=== PATIENT | female | born 1945 | race Caucasian/White ===

== ENCOUNTER 2025-02-10 09:08 | Outpatient (AMB) | payer MEDICARE, OTHER, SELFPAY ==
--- OUTSIDE RECORDS SUMMARY | 2025-02-10 10:11 | XMS_ITS | Clinical Summary ---
Author Organization [facility] [address] [facility] Address [address] [place] [address] Phone Care Team Providers Care Decaler Name Role Phone Meliton Agudelo MD Primary Care Provider [phone] Allergies Active Allergy Reactions Criticality Noted Date Comments Azithromycin Nausea And Vomiting 04/20/2018 Erythromycin 08/26/2024 Levofloxacin 08/26/2024 Sulfamethoxazole-Trimethoprim 2024 Medications multivitamin-mi r-[id number]-vit K 45 mg iron- 800 mcg-120 mcg capsule Orally Active alpha tocopherol (VITAMIN E) 268 mg (400 unit) capsule Take 1 capsule (400 Units total) by mouth daily. Active pantoprazole (PROTONIX) 40 mg EC tablet Take 1 tablet (40 mg total) by mouth daily. Active Toprol XL 25 mg 24 hr tablet TAKE 1 TABLET BY MOUTH EACH EVENING. MAY TAKE EXTRA 1/2 PER DAY NEEDED FOR PALPITATIONS 5 Active dicyclomine (BENTYL) 10 mg capsule Take 1 capsule (10 mg total) by mouth 4 times daily as needed. Active turmeric 400 mg capsule Take by mouth. Activ e pantoprazole (PROTONIX) 40 mg EC tabletIndicatio ns:Gastroesopha geal reflux disease without esophagitis Take 1 tablet (40 mg total) by mouth 1 (one) time each day. Do not crush, chew, or split. 90 each 3 5 08/27/19 26 Active dicyclomine (BENTYL) 10 mg capsuleIndicati ons:Irritable bowel syndrome without diarrhea Take 1 capsule (10 mg total) by mouth 4 (four) times a day. 360 each 3 5 08/27/19 26 Active hydrocortisone (ANUSOL-HC) 2.5 % rectal creamIndication s:Hemorrhoids, unspecified hemorrhoid type Insert into the rectum 2 (two) times a day for 10 days. 30 g 1 Active Active Problems Problem Noted Date Diagnosed Date SVT (supraventricular tachycardia) (CMS/[facility] V24) 08/26/2024 Irritable bowel syndrome without diarrhea 2024 Assessment & Plan (08/26/2024 8:47 AM EST): Orders: dicyclomine (BENTYL) 10 mg capsule; Take 1 capsule (10 mg total) by mouth 4 (four) times a day. Gastroesophageal reflux disease without esophagi tis 08/26/2024 Assessment & Plan (08/26/2024 8:47 AM EST): Orders: pantoprazole (PROTONIX) 40 mg EC tablet; Take 1 tablet (40 mg total) by mouth 1 (one) time each day. Do not crush, chew, or split. Gallbladder polyp 08/26/2024 Overview (08/26/2024): Overall Stable (7mm) on US 08/2023 - no further monitoring planned. Assessment & Plan (08/26/2024 8:47 AM EST): Surgical History Surgery Date Site/Laterality Comments COLONOSCOPY 04/23/2021 - 05/22/2021 5 yr due to fHx polyps ESOPHAGOGASTRODUODENOSCOPY 11/21/2012 - 12/20/2012 nl with nl small bowel and gastric biopsies OOPHORECTOMY APPENDECTOMY Family History Medical History Relation Name Comments Colon polyps Brother 50s Colon polyps Mother Colon polyps Sister 50s Relation Name Status Comments Brother Mother Sister Social History Tobacco Use Types Packs/Day Years Used Date Smoking Tobacco: Never Assessed Comments Unknown Sex and Gender Information Value Date Recorded Sex Assigned at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 Legal Sex Female 8:35 AM EST Gender Identity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 Sexual Orientation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 Obstetrics History Last Filed Vital Signs Vital Sign Reading Time Taken Comments Blood Pressure - - Pulse - - Temperature - - Respiratory Rate - - Oxygen Saturation - - Inhaled Oxygen Concentration - - Weight 53.1 kg (117 lb) 08/26/2024 8:00 AM EST Height 162.6 cm (5' 4 ) 08/26/2024 8:00 AM EST Body Mass Index 20.08 08/26/2024 8:00 AM EST Plan of Treatment Health Maintenance Due Date Last Done Comments Falls Risk Assessment 05/26/2022 Hepatitis C Screening 05/26/2022 Medicare Annual Wellness Visit 05/26/2022 Osteoporosis Screening (Bone Density Screening) 05/26/2022 Social Influencers of Health Screening 05/26/2022 RSV Immunization Adult Patients (1 - 1-dose 75+ series) 2022 DTaP,Tdap,and Td Vaccines (2 - Td or Tdap) 07/01/2023 07/01/2013 COVID-19 Vaccine ( season) 2024 03/24/2023, 04/15/2022, 10/30/2021, Additional history exists Depression Screening 06/23/2024 Influenza Vaccine (#1) 2025 , 04/23/2023, 03/29/2022, Additional history exists Cholesterol Screening (Lipid Panel) 10/31/2027 10/30/2022 Zoster Vaccines Completed 11/13/2018, 09/04/2018 Pneumococcal Vaccine: 50+ Years Completed 02/19/2021, 12/07/2019 Colorectal Cancer Screening: Colonoscopy Discontinued 05/03/2021 HIB Vaccines Aged Out No longer eligi ble based on patient's age to complete this topic HPV Vaccines Aged Out No longer eligi ble based on patient's age to complete this topic Hepatitis A Vaccines Aged Out No long er eligible based on patient's age to complete this topic Hepatitis B Vaccines Aged Out No long er eligible based on patient's age to complete this topic IPV Vaccines Aged Out No longer eligi ble based on patient's age to complete this topic MMR Vaccines Aged Out No longer eligi ble based on patient's age to complete this topic Meningococcal ACWY Vaccine Aged Out N o longer eligible based on patient's age to complete this topic Meningococcal B Vaccine Aged Out No l onger eligible based on patient's age to complete this topic RSV Immunization Patients Under 20 months Aged Out No longer eligible based on patient's age to complete this topic Varicella Vaccines Aged Out No longer eligible based on patient's age to complete this topic Procedures Procedure Name Priority Date/Time Associated Diagnosis Comments EXTERNAL COLONOSCOPY REPORT Routine 05/03/2021 9:44 AM EST from Last 3 Months or Most Recently Relevant to Health Maintenance Results * External Colonoscopy Report (05/03/2021 9:44 AM EST) Anatomical Region Laterality Modality Endoscopy us Historical Provider GI~PROCEDURE ORDERABLES F inal Result from Last 3 Months or Most Recently Relevant to Health Maintenance Insurance MEDICARE [facility] Care Teams Decaler Relationship Specialty Start Date End Date Meliton Agudelo MD [address] [place] [address], [address] [place] [address] PCP - General Internal Medicine 08/26/24
--- OUTSIDE RECORDS SUMMARY | 2025-02-10 10:11 | XMS_ITS | Patient Health Record ---
[facility] Address [address] [place] [address] Care Team Providers Care Mangle Roller Name Role Phone Magnus WATSON, Meliton Primary Care Provider Ra Curtis Unavailable [phone] Allergies Allergen (clinical drug ingredient) Drug/Non Drug Allergy documented on EMR Reaction Allergy Type Onset Date Status sulfamethoxazole / trimethoprim Bactrim Unknown Drug Allergy Active Biaxin Unknown Drug Allergy Active erythromycin Erythromycin Unknown Drug Allergy A ctive Levaquin Unknown Drug Allergy Active azithromycin Zithromax Z-Jean Unknown Drug Allergy Active Reason For Referral No Information Medications Medication SIG (Take, Route, Frequency, Duration) Notes Start Date End Date Status Pantoprazole Sodium 40 MG 1 tablet Orally Once a day; Duration: 30 day(s) Active PreserVision AREDS 2 - as directed Orally Active Dicyclomine HCl 10 MG 1 tablet Orally Fo ur times a day Active Multivitamin Spectavite Active Physical Therapy . . . 2-3x/week; Duration: 3-4 weeks 03/15/2019 Not-Taking Calcium 600 MG 1 tablet with meals Orally Twice a day; Duration: 30 day(s) Active Nystatin 265452 UNIT 1 tablet Orally every 8 hrs; Duration: 10 day(s) Not-Taking Night Splint AFO - L1930 as directed 03/15/2019 Not-Taking Vitamin E 400 UNIT 1 capsule Orally Once a day; Duration: 30 day(s) Active Augmentin 500-125 MG 1 tablet Orally every 8 hrs; Duration: 7 day(s) Not-Taking Toprol XL 25 MG 1 tablet Orally Once a day; Duration: 30 day(s) Active Immunizations Vaccine Route Administration Date Status Comme nts COVID-19 [employer] Vaccine Unknown 10/30/2021 Administered 1st 07/11/2020 2nd 08/01/2020 3rd 04/10/2021 Social History Tobacco Use: Social History Observation Description Date Details (start date - stop date) Former Smoker NA - NA Tobacco Use/Smoking Question Answer Notes Are you a: former smoker Additional Findings: Tobacco Non-User Current no n-smoker Alcohol Screen Question Answer Notes Did you have a drink contain ing alcohol in the past year? Yes How often did you have a dri nk containing alcohol in the past year? Monthly or less (1 point) Points 1 Interpretation Negative Tobacco use other than smoking: Question Answer Notes Are you an other tobacco user? No Problems Problem Type SNOMED Code ICD Code Onset Dates Problem Status W/U Status Risk Notes Problem Acquired hallux rigidus (0252358) Hallux rigidus, left foot (M20.22) Active confirmed Problem Hallux rigidus, right foot (M20.21) Active confirmed Plan Of Treatment Pending Test Test Name Order Date X ray : Foot, right 3V 03/15/2019 Insurance Providers Payer Name Payer Address Payer Phone Subscriber Number Group Number Insured Name Patient Relationship to Insured Coverage Start Date Coverage End Date Medicare National Govt Svcs Inc [address] [place] [address] [id number] Tamara Bernal Self - patient is the insured [facility] [address] [place] [address] [id number] Tamara Bernal Self - patient is the insured Medical (General) History Medical History History ICD Code Measles Mumps Supraventricular tachycardia Surgical History Surgery Date(Month/Year) appendectomy ovarian surgery- right removed eye surgery-Blocked tear duct right eye 02/08/2019 eye surgery- blocked tear duct-right eye 03/24/2019
--- OUTSIDE RECORDS SUMMARY | 2025-02-10 10:11 | XMS_ITS | Encounter Summary ---
Author Organization [facility] Address [address] [facility] [address] [place] [address] Phone Care Team Providers Care Stable Attendant Name Role Phone Meliton Agudelo MD Primary Care Provider [phone] Lamien Navarro MD Unavailable [phone] Iain Hicks MD Unavailable [phone] Meliton Agudelo MD Unavailable [phone] Larry Anderson MD Unavailable [phone] Encounter Details Date Type Department Care Team (Late st Contact Info) Description 03/19/2022 Procedure [facility], [facility] [address] [place] [address] Social History Tobacco Use Types Packs/Day Years Used Date Smoking Tobacco: Never Passive Smoke Exposure: Never Smokeless Tobacco: Never Alcohol Use Standard Drinks/Week Comments Not Currently 0 (1 standard drink = 0.6 oz pur e alcohol) occ Child or Family Care Answer Date Record ed Do you have problems with on e of the following making it difficult for you to work, study, or receive health care? No 11/05/2021 Education Answer Date Recorded Are you interested in help w ith more adult education (for example, completing high school, GED, job training, learning the Argentine language, technical skills, or developing parenting skills)? No 11/05/2021 Food Answer Date Recorded Within the past 6 months we worried whether our food would run out before we got money to buy more. Never True 11/05/2021 Within the past 6 months the food we bought just didn't last and we didn't have enough money to get more. Never True Residential Stability Answer Date Recor ded What is your housing situation today? I have etelvina sing 11/05/2021 How many times have you move d in the past 12 months? Zero (I did not move) 11/05/2021 Paying for Meds Answer Date Recorded Do you have trouble paying for medicines? No 11/05/2021 Paying Utility Bills Answer Date Record ed Do you have trouble paying your heating or elect ricity bill? No 11/05/2021 Transportation Answer Date Recorded Has the lack of transportati on kept you from medical appointments or from getting medications? No 11/05/2021 Unemployment Answer Date Recorded Are you currently unemployed or working on a part-time or temporary basis, and looking for work? 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 documented as of this encounter Plan of Treatment Upcoming Encounters Date Type Department Care Team (Late st Contact Info) Description 11/15/2025 8:30 AM EDT Office Visit [facility] [address] [place] [address] Meliton Agudelo MD [address] [place] [address], [address] [place] [address] documented as of this encounter Visit Diagnoses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documented in this encounter Additional Health Concerns Infection Onset Date Last Indicated Resolved Time COVID-19 05/05/2023 05/05/2023 05/26/2023 1:21 AM EST Assessment Noted Time PHQ-2 Depression Total Score: 0 11/06/19 9:20 AM EDT documented as of this encounter Care Teams Stable Attendant Relationship Specialty Start Date End Date Meliton Agudelo MD [address] [place] [address], [address] [place] [address] PCP - General Internal Medicine 11/05/21 Lamine Navarro MD [address] [place] [address] Gastroenterology 11/05/21 Iain Hicks MD [address] [place] [address], [address] [place], [place] [phone] Ophthalmology 07/01/22 Meliton Agudelo MD [address] [place] [address], [address] [place] [address] [email or web address] Insurance Assigned Provider 09/27/23 Larry Anderson MD [address] [place] [address] [address] [place] [address] Otolaryngology 11/10/23 documented as of this encounter Additional Source Comments The information contained in this document represents components of the legal health record. It is not the complete legal health record.[facility]
== END 2025-02-10 09:24 | disposition home or self-care (01) ==
LOC: HO.HMGAL 09:08
PROVIDERS: PCP Internal Medicine; Visit Provider Registered Nurse Emergency
DX: J30.89 Other allergic rhinitis (principal)
CPT/HCPCS: 95117; 95165

== ENCOUNTER 2025-02-16 14:04 | Outpatient (AMB) | payer MEDICARE, OTHER, SELFPAY ==
--- OUTSIDE RECORDS SUMMARY | 2025-02-16 15:00 | XMS_ITS | Encounter Summary ---
Author Organization [facility] Address [address] [facility] [address] [place] [address] Phone Care Team Providers Care Spring Crater Name Role Phone Meliton Agudelo MD Primary Care Provider [phone] Lamine Navarro MD Unavailable [phone] Iain Hicks MD Unavailable [phone] Meliton Agudelo MD Unavailable [phone] Larry Anderson MD Unavailable Encounter Details Date Type Department Care Team (Latest Contact Info) Description 04/09/2023 Transcribe Orders Virtual Department [address] [place], [place] [phone] Meliton Agudelo MD [address] [facility], [address] [place] [address] [email or web address] Encounter for screening mammogram for malignant neoplasm of breast (Primary Dx) Social History Tobacco Use Types Packs/Day Years [...] high school, GED, job training, learning the [place] language, technical skills, or developing parenting skills)? [...] basis, and looking for work? No 11/05/2021 Digital Access Answer Date Recorded No 11/18/2022 No 11/18/2022 Reliable internet access at home?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 11/18/2022 Device with a working camera?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 documented as of this encounter Plan of Treatment Upcoming Encounters Date Type Department Care Team (Late st Contact Info) Description 11/15/2025 8:30 AM EDT Office Visit [facility] [address] [place] [address] Meliton Agudelo MD [address] [facility], [address] [place] [address] documented as of this encounter Results * (ABNORMAL) BI MAMMOGRAM SCREENING WITH TOMOSYNTHESIS WITH CAD (BILATERAL) (07/07/2023 7:59 AM EST) Anatomical Region Laterality Modality Breast Left, Breast Right, Breast Bilateral Bila teral Mammography 07/15/2023 4:55 PM EST Impressions 07/15/2023 5:06 PM EST 1. Right breast discrete asymmetry posterior laterally is incompletely assessed. Recommend diagnostic mammography to include spot compression views CC and MLO projections with ultrasound to follow if indicated based upon diagnostic imaging findings. 2. Left breast: No evidence of malignancy. BI-RADS: BI-RADS CATEGORY: 0 - Incomplete. Need additional imaging evaluation. RIGHT RECOMMENDATION DUE DATE: At This Time Recommendation: Right Additional Imaging LEFT RECOMMENDATION DUE DATE: on schedule Recommendation: Left Mammography Screening Narrative 07/15/2023 5:06 PM EST History: Breast cancer screening STUDY: Bilateral screening mammography with tomosynthesis and CAD TECHNIQUE: Bilateral full-field digital screening mammography is obtained and read in conjunction with computer-aided detection. Tomosynthesis as well as 2-D C view imaging were obtained. COMPARISON: Comparison made with multiple prior, most recent 07/01/2022, and most remote 05/26/2017. FINDINGS: Right breast: Rounded oval 4-5 mm discrete asymmetry posterior lateral right breast CC projection, 6.5 cm from the nipple persists on tomography raising question of small mass. Clear corresponding abnormality difficult to define on right MLO projection. Approximate 2.8 mm discrete asymmetry identified on tomography within the posterior nipple line. No architectural distortion or suspicious microcalcification. Left breast: No suspicious mass, architectural distortion, concerning asymmetry or suspicious grouping of microcalcifications. DENSITY: There are scattered fibroglandular densities. Procedure Note Kaushal Burton MD - 07/15/2023 History: Breast cancer screening STUDY: Bilateral screening mammography with tomosynthesis and CAD TECHNIQUE: Bilateral full-field digital screening mammography is obtainedand read in conjunction with computer-aided detection. Tomosynthesis aswell as 2-D C view imaging were obtained. COMPARISON: Comparison made with multiple prior, most recent 07/01/2022, andmost remote 05/26/2017. FINDINGS: Right breast: Rounded oval 4-5 mm discrete asymmetry posterior lateralright breast CC projection, 6.5 cm from the nipple persists on tomographyraising question of small mass. Clear corresponding abnormality difficultto define on right MLO projection. Approximate 2.8 mm discrete asymmetryidentified on tomography within the posterior nipple line. Noarchitectural distortion or suspicious microcalcification. Left breast: No suspicious mass, architectural distortion, concerningasymmetry or suspicious grouping of microcalcifications. DENSITY: There are scattered fibroglandular densities. IMPRESSION: 1. Right breast discrete asymmetry posterior laterally is incompletelyassessed. Recommend diagnostic mammography to include spot compressionviews CC and MLO projections with ultrasound to follow if indicated basedupon diagnostic imaging findings. 2. Left breast: No evidence of malignancy. BI-RADS: BI-RADS CATEGORY: 0 - Incomplete. Need additional imagingevaluation. RIGHT RECOMMENDATION DUE DATE: At This Time Recommendation: Right Additional Imaging LEFT RECOMMENDATION DUE DATE: on schedule Recommendation: Left Mammography Screening us Meliton Agudelo MD IMG MG EXAMS Final Resu lt documented in this encounter Visit Diagnoses Diagnosis Encounter for screening mammogram for malignant neoplasm of breast- Primary Abnormal mammogram of right breast- Primary Encounter for screening mammogram for malignant neoplasm of breast documented in this encounter Additional Health Concerns Infection Onset Date Last Indicated Resolved Time COVID-19 05/05/2023 05/05/2023 05/26/2023 1:21 AM EST Assessment Noted Time PHQ-2 Depression Total Score: 0 11/05/19 23 9:02 AM EDT documented as of this encounter Care Teams Spring Crater Relationship Specialty Start Date End Date Meliton Agudelo MD [address] [place] [address], [address] [place] [address] PCP - General Internal Medicine 11/05/21 Lamine Navarro MD [address] [place] [address] Gastroenterology 11/05/21 Iain Hicks MD [address] [place] [address], [address] [place], [place] [id number] [email or web address] Ophthalmology 07/01/22 Meliton Agudelo MD [address] [place] [address], [address] [place] [address] [email or web address] Insurance Assigned Provider 09/27/23 Larry Anderson MD [address] [place] [address] [place] [address] Otolaryngology 11/10/23 documented as of this encounter Additional Source Comments The information contained in this document represents components of the legal health record. It is not the complete legal health record.[facility]
--- OUTSIDE RECORDS SUMMARY | 2025-02-16 15:00 | XMS_ITS | Patient Health Record ---
[facility] Address [address] [place] [address] Care Team Providers Care Sewing Machine Operator Name Role Phone Magnus WATSON, Meliton Primary Care Provider Ra Curtis Unavailable [phone] Allergies Allergen (clinical drug ingredient) Drug/Non Drug [...] a day; Duration: 30 day(s) Active Nystatin 829668 UNIT 1 tablet Orally every 8 hrs; [...] Route Administration Date Status Comme nts COVID-19 [employer] Vaccine Unknown 10/30/2021 Administered 1st 07/11/2020 [...] Status Risk Notes Problem Acquired hallux rigidus (9140975) Hallux rigidus, left foot (M20.22) Active confirmed Problem Hallux rigidus, right foot (M20.21) Active confirmed Plan Of Treatment Pending Test Test Name Order Date X ray : Foot, right 3V 03/15/2019 Insurance Providers Payer Name Payer Address Payer Phone Subscriber Number Group Number Insured Name Patient Relationship to Insured Coverage Start Date Coverage End Date Medicare National Govt Svcs Inc [address] [facility] [address] [id number] Tamara Bernal Self - patient is the insured [facility] ([facility]) [address] [place] [address] [id number] Tamara Bernal Self - patient is the insured Medical (General) History Medical History History ICD Code Measles Mumps Supraventricular tachycardia Surgical History Surgery Date(Month/Year) appendectomy ovarian surgery- right removed eye surgery-Blocked tear duct right eye 02/08/2019 eye surgery- blocked tear duct-right eye 03/24/2019
--- OUTSIDE RECORDS SUMMARY | 2025-02-16 15:00 | XMS_ITS | Encounter Summary ---
Author Organization [facility] Address [address] [facility] [address] [place] [address] Phone Care Team Providers Care Knot Tying Operator Name Role Phone Meliton Agudelo MD Primary Care Provider [phone] Lamine Navarro MD Unavailable [phone] Iain Hicks MD Unavailable [phone] Meliton Agudelo MD Unavailable Larry Anderson MD Unavailable [phone] Encounter Details Date Type Department Care Team (Late st Contact Info) Description 03/19/2022 Procedure Pass [facility], [facility] [address] [place] [address] Social History Tobacco Use Types Packs/Day Years [...] high school, GED, job training, learning the Malawian language, technical skills, or developing parenting skills)? 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 documented as of this encounter Plan of Treatment Upcoming Encounters Date Type Department Care Team (Late st Contact Info) Description 11/15/2025 8:30 AM EDT Office Visit [facility] [address] [place] [address] Meliton Agudelo MD [address] [place] [address], [address] [place] [address] documented as of this encounter Visit Diagnoses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documented in this encounter Additional Health Concerns Infection Onset Date Last Indicated Resolved Time COVID-19 05/05/2023 05/05/2023 05/26/2023 1:21 AM EST Assessment Noted Time PHQ-2 Depression Total Score: 0 11/06/19 9:20 AM EDT documented as of this encounter Care Teams Knot Tying Operator Relationship Specialty Start Date End Date Meliton Agudelo MD [address] [place] [address], [address] [place] [address] PCP - General Internal Medicine 11/05/21 Lamine Navarro MD [address] [place] [address] Gastroenterology 11/05/21 Iain Hicks MD [address] [place] [address], [address] [place], [place] [id number] Ophthalmology 07/01/22 Meliton Agudelo MD [address] [place] [address], [address] [place] [address] [email or web address] Insurance Assigned Provider 09/27/23 Larry Anderson MD [address] [place] [address] [address] [place] [address] Otolaryngology 11/10/23 documented as of this encounter Additional Source Comments The information contained in this document represents components of the legal health record. It is not the complete legal health record.[facility]
--- OUTSIDE RECORDS SUMMARY | 2025-02-16 15:00 | XMS_ITS | Encounter Summary ---
Author Organization [facility] Address [address] [facility] [address] [place] [address] Phone Care Team Providers Care Roof Plumber Name Role Phone Som Adkins MD Primary Care Provider Meliton Agudelo MD Primary Care Provider [phone] Lamine Navarro MD Unavailable [phone] Iain Hicks MD Unavailable [phone] Meliton Agudelo MD Unavailable [phone] Larry Anderson MD Unavailable Encounter Details Date Type Department Care Team (Latest Contact Info) Description 07/31/2017 Transcribe Orders [address] [address] Som Adkins MD [address] [facility] [address] [place] [address] [email or web address] Routine medical exam (Primary Dx); High cholesterol; Fatigue, unspecified type Social History Tobacco Use Types Packs/Day Years Used Date Smoking Tobacco: Never Assessed Comments No Sex and Gender Information Value Date Recorded Sex Assigned at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 Legal Sex Female 10:06 PM EDT Gender Identity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 Sexual Orientation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 documented as of this encounter Plan of Treatment Upcoming Encounters Date Type Department Care Team (Late st Contact Info) Description 11/15/2025 8:30 AM EDT Office Visit [facility] [address] [place] [address] Meliton Agudelo MD [address] [place] [address], [address] [place] [address] [email or web address] documented as of this encounter Results * CBC and differential (07/31/2017 7:56 AM EST) WBC 5.60 3.40 - 11.20 K/uL [facility] RBC 4.57 3.80 - 4.80 M/uL [facility] HGB 13.8 12.0 - 15.0 g/dL [facility] HCT 42.1 36.0 - 46.0 % [facility] PLT 293 130 - 400 K/uL [facility] MCV 92.1 79.0 - 98.0 fL [facility] MCH 30.2 27.0 - 34.8 pg [facility] MCHC 32.8 31.5 - 36.0 g/dL [facility] RDW 12.7 10.8 - 14.6 % [facility] MPV 10.6 9.4 - 12.4 fl [facility] NRBC 0.00 /100 WBCs [facility] ABSOLUTE NRBC 0.00 K/uL [facility] DIFF [employer] [facility] NEUTS 52.8 45.30 - 77.70 % [facility] LYMPHS 32.5 12.30 - 39.70 % [facility] MONOS 9.5 4.10 - 12.80 % [facility] EOS 3.9 0 - 7.2 % [facility] BASOS 1.1 0 - 2.80 % [facility] Granulocytes, immature (%) 0.2 0.0 - 0.9 % [facility] ABSOLUTE NEUTS 2.96 1.40 - 7.70 K/uL [facility] ABSOLUTE LYMPHS 1.82 0.60 - 3.20 K/uL [facility] ABSOLUTE MONOS 0.53 0.11 - 0.59 K/uL [facility] ABSOLUTE EOS 0.22 0.01 - 0.50 K/uL [facility] ABSOLUTE BASOS 0.06 0.00 - 0.08 K/uL [facility] Granulocytes, immature 0.01 0.00 - 0.05 K/uL [facility] Blood 07/31/2017 7:56 AM EST 07/31/2017 8:01 AM EST Som Adkins MD LAB BLOOD ORDERABLES Final Resu lt Performing Organization Address [facility] Co de Phone Number [address] [address] * TSH (07/31/2017 7:56 AM EST) TSH 3.24 0.27 - 4.20 uIU/mL [facility] Blood 07/31/2017 7:56 AM EST 07/31/2017 8:01 AM EST Som Adkins MD LAB BLOOD ORDERABLES Final Resu lt Performing Organization Address [facility] Co de Phone Number [address] [address] * (ABNORMAL) Lipid panel (07/31/2017 7:56 AM EST) HDL 76 mg/dL [facility] Comment: Interpretation: Risk Level Females Decreased >55mg/dL Average 50-55 mg/dL Increased <50 mg/dL CHOLESTEROL 210 0 - 240 mg/dL [facility] TRIGLYCERIDES 43 30 - 160 mg/dL [facility] LDL 125 50 - 129 mg/dL [facility] Comment: LDL levels in terms of risk for coronary heart disease: <100 mg/dL: Optimal 100-129 mg/dL: Near or above optimal 130-159 mg/dL: Borderline high 160-189 mg/dL: High >190 mg/dL: Very High CARDIAC RISK RATIO 2.8(L) 3.3 - 4.4 C [facility] Blood 07/31/2017 7:56 AM EST 07/31/2017 8:01 AM EST Som Adkins MD LAB BLOOD ORDERABLES Final Resu lt Performing Organization Address [facility] Co de Phone Number [address] [address] * Comprehensive metabolic panel (07/31/2017 7:56 AM EST) SODIUM 142 133 - 146 mmol/L [facility] POTASSIUM 4.6 3.3 - 5.1 mmol/L [facility] CHLORIDE 102 96 - 108 mmol/L [facility] CO2 30 21 - 35 mmol/L [facility] BUN 15 6 - 19 mg/dL [facility] CREATININE 0.70 0.5 - 1.5 mg/dL [facility] GLUCOSE 80 70 - 99 mg/dL [facility] ALBUMIN 4.3 3.9 - 4.8 g/dL [facility] TOTAL PROTEIN 7.1 6.5 - 8.0 g/dL [facility] CALCIUM 9.4 8.4 - 10.3 mg/dL [facility] ALKALINE PHOSPHATASE 65 39 - 117 U/L [facility] TOTAL BILIRUBIN 0.6 0 - 1.2 mg/dL [facility] AST 25 0 - 37 U/L [facility] ALT 11 0 - 40 U/L [facility] GLOBULIN 2.8 1 - 4.8 g/dL [facility] EGFR >60 mL/min/1.7 3m2 [facility] Comment:Abnormal if <60. If patient is -Senegalese, multiply the result by 1.21. ANION GAP 15 10 - 20 mmol/L [facility] Blood 07/31/2017 7:56 AM EST 07/31/2017 8:01 AM EST us Som Adkins MD LAB BLOOD ORDERABLES Final Resu lt [address] [address] documented in this encounter Visit Diagnoses Diagnosis Routine medical exam- Primary Routine general medical examination at a health care facility High cholesterol Pure hypercholesterolemia Fatigue, unspecified type documented in this encounter Additional Health Concerns Infection Onset Date Last Indicated Resolved Time CoV-Risk 01/22/2021 01/22/2021 02/01/2021 1:45 AM EDT COVID-19 05/05/2023 05/05/2023 05/26/2023 1:21 AM EST documented as of this encounter Care Teams Roof Plumber Relationship Specialty Start Date End Date JedSom MD [address] [place] [address] [address] [place] [address] [email or web address] PCP - General Internal Medicine 05/26/17 11/04/21 Meliton Agudelo MD [address] [place] [address], [address] [place] [address] PCP - General Internal Medicine 11/05/21 Lamine Navarro MD [address] [place] [address] Gastroenterology 11/05/21 Iain Hicks MD [address] [place] [address] Ophthalmology 07/01/22 Meliton Agudelo MD [address] [place] [address], [address] [place] [address] Insurance Assigned Provider 09/27/23 Larry Anderson MD [address] [place] [address] Otolaryngology 11/10/23 documented as of this encounter Additional Source Comments The information contained in this document represents components of the legal health record. It is not the complete legal health record.[facility]
--- OUTSIDE RECORDS SUMMARY | 2025-02-16 15:00 | XMS_ITS | Encounter Summary ---
Author Organization [facility] Address [address] [facility] [address] [place] [address] Phone Care Team Providers Care Fire Warden Name Role Phone Meliton Agudelo MD Primary Care Provider [phone] Lamine Navarro MD Unavailable [phone] Iain Hicks MD Unavailable [phone] Meliton Agudelo MD Unavailable [phone] Larry Anderson MD Unavailable Encounter Details Date Type Department Care Team (Late st Contact Info) Description 08/25/2023 Ancillary Orders [facility] [address] [place], [place] [id number] Meliton Agudelo MD 22 [facility], [address] [place] [address] [email or web address] Abnormal finding on mammography (Primary Dx) Social History Tobacco Use Types [...] high school, GED, job training, learning the Ukrainian language, technical skills, or developing parenting skills)? 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 documented as of this encounter Plan of Treatment Upcoming Encounters Date Type Department Care Team (Late st Contact Info) Description 11/15/2025 8:30 AM EDT Office Visit [facility] [place] [facility] [address] [place] [address] [place] [address] Meliton Agudelo MD 22 [facility], [address] [place] [address] documented as of this encounter Results * BI MAMMOGRAM DIAGNOSTIC WITH TOMOSYNTHESIS WITH CAD (RIGHT) (08/25/2023 2:30 PM EST) Anatomical Region Laterality Modality Breast Right, Breast Bilateral Right M ammography 08/25/2023 2:39 PM EST Impressions 08/25/2023 2:46 PM EST No mammographic evidence of malignancy in the right breast. BI-RADS 2 BENIGN Results and recommendations were communicated to the patient at time of examination. Narrative 08/25/2023 2:46 PM EST BI MAMMOGRAM DIAGNOSTIC WITH TOMOSYNTHESIS WITH CAD (RIGHT) Additional patient information: Asymmetry on recent screening mammogram. COMPARISON: Comparison is made with relevant prior imaging. Breast composition: There are scattered areas of fibroglandular density. FINDINGS: Right Mammogram: The asymmetry seen on screening mammography in the right breast does not persist, consistent with superimposition of normal breast tissue. There is no underlying mass, architectural distortion, suspicious calcifications or other concerning findings. us Meliton Agudelo MD IMG MG EXAMS Final Resu lt documented in this encounter Visit Diagnoses Diagnosis Abnormal finding on mammography Abnormal finding on mammography- Primary documented in this encounter Additional Health Concerns Assessment Noted Time PHQ-2 Depression Total Score: 0 11/05/19 23 9:02 AM EDT documented as of this encounter Care Teams Fire Warden Relationship Specialty Start Date End Date Meliton Agudelo MD [address] [place] [address], [address] [place] [address] PCP - General Internal Medicine 11/05/21 Lamine Navarro MD [address] [place] [address] Gastroenterology 11/05/21 Iain Hicks MD [address] [place] [address], [address] [address] Ophthalmology 07/01/22 Meliton Agudelo MD [address] [place] [address], [address] [place] [address] [email or web address] Insurance Assigned Provider 09/27/23 Larry Anderson MD [address] [place] [address] [place] [address] Otolaryngology 11/10/23 documented as of this encounter Additional Source Comments The information contained in this document represents components of the legal health record. It is not the complete legal health record.[facility]
--- OUTSIDE RECORDS SUMMARY | 2025-02-16 15:00 | XMS_ITS | Encounter Summary ---
Author Organization [facility] Address [address] [facility] [address] [place] [address] Phone Care Team Providers Care Clin Nurse Spec Name Role Phone Meliton Agudelo MD Primary Care Provider [phone] Lamine Navarro MD Unavailable Iain Hicks MD Unavailable [phone] Meliton Agudelo MD Unavailable [phone] Larry Anderson MD Unavailable [phone] Encounter Details Date Type Department Care Team (Late st Contact Info) Description 08/25/2023 Procedure Pass [facility], [facility] [address] [place] [address] Social History Tobacco Use Types Packs/Day Years [...] high school, GED, job training, learning the Moroccan language, technical skills, or developing parenting skills)? 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 documented as of this encounter Plan of Treatment Upcoming Encounters Date Type Department Care Team (Late st Contact Info) Description 11/15/2025 8:30 AM EDT Office Visit [facility] [address] [place] [address] [place] [address] Meliton Agudelo MD [address] [place] [address], [address] [place] [address] [email or web address] documented as of this encounter Visit Diagnoses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documented in this encounter Additional Health Concerns Assessment Noted Time PHQ-2 Depression Total Score: 0 11/05/19 23 9:02 AM EDT documented as of this encounter Care Teams Clin Nurse Spec Relationship Specialty Start Date End Date Meliton Agudelo MD [address] [place] [address], [address] [place] [address] PCP - General Internal Medicine 11/05/21 Lamine Navarro MD [address] [place] [address] Gastroenterology 11/05/21 Iain Hicks MD [address] [place] [address], [address] [place] [address] [email or web address] Ophthalmology 07/01/22 Meliton Agudelo MD [address] [place] [address], [address] [place] [address] [email or web address] Insurance Assigned Provider 09/27/23 Larry Anderson MD [address] [place] [address] [address] [place] [address] Otolaryngology 11/10/23 documented as of this encounter Additional Source Comments The information contained in this document represents components of the legal health record. It is not the complete legal health record.[facility]
--- OUTSIDE RECORDS SUMMARY | 2025-02-16 15:00 | XMS_ITS | Encounter Summary ---
Author Organization [facility] Address [address] [facility] [address] [place] [address] Phone Care Team Providers Care Mirror Fabrication Supervisor Name Role Phone Som Adkins MD Primary Care Provider [phone] Meliton Agudelo MD Primary Care Provider [phone] Lamine Navarro MD Unavailable [phone] Iain Hicks MD Unavailable [phone] Meliton Agudelo MD Unavailable [phone] Larry Anderson MD Unavailable Encounter Details Date Type Department Care Team (Late st Contact Info) Description 03/01/2019 Ancillary Orders Virtual Department 30 [place] [address] Som Adkins MD 264 [facility] [address] [place] [address] [email or web address] Breast screening Social History Tobacco Use Types Packs/Day Years Used Date Smoking Tobacco: Never Smokeless Tobacco: Never Alcohol Use Standard Drinks/Week Comments Yes 0 (1 standard drink = 0.6 oz pur e alcohol) Comments No Sex and Gender Information Value Date Recorded Sex Assigned at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 Legal Sex Female 10:06 PM EDT Gender Identity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 Sexual Orientation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 documented as of this encounter Plan of Treatment Upcoming Encounters Date Type Department Care Team (Late Contact Info) Description 11/15/2025 8:30 AM EDT Office Visit [facility] [address] [place] [address] Meliton Agudelo MD [address] [place] [address], [address] [place] [address] [email or web address] documented as of this encounter Results * BI MAMMOGRAM SCREENING WITH TOMOSYNTHESIS WITH CAD (BILATERAL) (05/31/2019 8:08 AM EST) Anatomical Region Laterality Modality Breast Left, Breast Right, Breast Bilateral Bila teral Mammography 05/31/2019 8:08 AM EST Impressions 05/31/2019 8:15 AM EST No findings suspicious for malignancy. In the absence of a worrisome palpable abnormality, annual screening mammography is recommended. BI-RADS CATEGORY: 2 - Benign finding. DENSITY: There are scattered fibroglandular densities. POS [id number] Narrative 05/31/2019 8:15 AM EST COMPARISON: 04/15/2013 through 05/27/2018. Bilateral 3-D tomosynthesis with 2-D reconstructions in the CC and MLO projection of each breast was obtained. Computer-aided detection system also utilized. No new mass, asymmetry, architectural distortion or suspicious calcifications have become apparent on either side. Chronic small lymph node left upper outer quadrant unchanged for years. Procedure Note Lamine Boss MD - 05/31/2019 COMPARISON: 04/15/2013 through 05/27/2018. Bilateral 3-D tomosynthesis with 2-D reconstructions in the CC and MLOprojection of each breast was obtained. Computer-aided detection systemalso utilized. No new mass, asymmetry, architectural distortion or suspiciouscalcifications have become apparent on either side. Chronic small lymph node left upper outer quadrant unchanged for years. IMPRESSION: No findings suspicious for malignancy. In the absence of a worrisomepalpable abnormality, annual screening mammography is recommended. BI-RADS CATEGORY: 2 - Benign finding. DENSITY: There are scattered fibroglandular densities. POS [email or web address] Som Adkins MD IMG MG EXAMS Final Result documented in this encounter Visit Diagnoses Diagnosis Breast screening Breast screening, unspecified Breast screening Breast screening, unspecified documented in this encounter Additional Health Concerns Infection Onset Date Last Indicated Resolved Time CoV-Risk 01/22/2021 01/22/2021 02/01/2021 1:45 AM EDT COVID-19 05/05/2023 05/05/2023 05/26/2023 1:21 AM EST documented as of this encounter Care Teams Mirror Fabrication Supervisor Relationship Specialty Start Date End Date Som Adkins MD [address] [place] [address] [address] [place] [address] [email or web address] PCP - General Internal Medicine 05/26/17 11/04/21 Meliton Agudelo MD [address] [place] [address], [address] [place] [address] [email or web address] PCP - General Internal Medicine 11/05/21 Lamine Navarro MD [address] [place] [address] Gastroenterology 11/05/21 Iain Hicks MD [address] [place] [address], [address] [address] Ophthalmology 07/01/22 Meliton Agudelo MD [address] [place] [address], [address] [place] [address] [email or web address] Insurance Assigned Provider 09/27/23 Larry Anderson MD [address] [place] [address] Otolaryngology 11/10/23 documented as of this encounter Additional Source Comments The information contained in this document represents components of the legal health record. It is not the complete legal health record.[facility]
--- OUTSIDE RECORDS SUMMARY | 2025-02-16 15:01 | XMS_ITS | Clinical Summary ---
Author Organization [facility] [address] [facility] Address [address] [place] [address] Phone Care Team Providers Care Treasury Consultant Name Role Phone Meliton Agudelo MD Primary Care Provider [phone] Allergies Active Allergy Reactions Criticality Noted Date Comments Azithromycin Nausea And Vomiting 04/20/2018 Erythromycin 08/26/2024 Levofloxacin 08/26/2024 Sulfamethoxazole-Trimethoprim 2024 Medications multivitamin-mi v-bbhe-NH-vit K 45 mg iron- 800 mcg-120 mcg [...] Noted Date Diagnosed Date SVT (supraventricular tachycardia) (CMS/[facility] V24) 08/26/2024 Irritable 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
--- OUTSIDE RECORDS SUMMARY | 2025-02-16 15:01 | XMS_ITS | Encounter Summary ---
Author Organization [facility] Address [address] [facility] [address] [place] [address] Phone Care Team Providers Care Quarryman Name Role Phone Meliton Agudelo MD Primary Care Provider [phone] Lamine Navarro MD Unavailable [phone] Iain Hicks MD Unavailable [phone] Meliton Agudelo MD Unavailable [phone] Larry Anderson MD Unavailable [phone] Encounter Details Date Type Department Care Team (Late st Contact Info) Description 04/09/2023 Procedure Pass [facility], [facility] [address] [place] [address] Social History Tobacco Use Types Packs/Day Years [...] high school, GED, job training, learning the Marshallese language, technical skills, or developing parenting skills)? 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 Family Medicine [address] [place] [address] [place] [address] Meliton Agudelo MD [address] [place] [address], [address] [place] [address] [email or web address] documented as of this encounter Visit Diagnoses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documented in this encounter Additional Health Concerns Infection Onset Date Last Indicated Resolved Time COVID-19 05/05/2023 05/05/2023 05/26/2023 1:21 AM EST Assessment Noted Time PHQ-2 Depression Total Score: 0 11/05/19 9:02 AM EDT documented as of this encounter Care Teams Quarryman Relationship Specialty Start Date End Date Meliton Agudelo MD [address] [place] [address], [address] [place] [address] [email or web address] PCP - General Internal Medicine 11/05/21 Lamine Navarro MD [address] [place] [address] Gastroenterology 11/05/21 Iain Hicks MD [address] [place] [address], [address] [place] [address] [email or web address] Ophthalmology 07/01/22 Meliton Agudelo MD [address] [place] [address], [address] [place] [address] [email or web address] Insurance Assigned Provider 09/27/23 Larry Anderson MD [address] [place] [address] Otolaryngology 11/10/23 documented as of this encounter Additional Source Comments The information contained in this document represents components of the legal health record. It is not the complete legal health record.[facility]
--- OUTSIDE RECORDS SUMMARY | 2025-02-16 15:01 | XMS_ITS | Encounter Summary ---
Author Organization [facility] Address [address] [facility] [address] [place] [address] Phone Care Team Providers Care Museum Preparator Name Role Phone Som Adkins MD Primary Care Provider [phone] Meliton Agudelo MD Primary Care Provider [phone] Lamine Navarro MD Unavailable [phone] Iain Hicks MD Unavailable [phone] Meliton Agudelo MD Unavailable [phone] Larry Anderson MD Unavailable Encounter Details Date Type Department Care Team (Late st Contact Info) Description 05/20/2020 Procedure Pass [facility] [place] [address] Social History Tobacco Use Types Packs/Day Years [...] 11/15/2025 8:30 AM EDT Office Visit [facility] Medicine [address] [place] [address] [place] [address] Meliton Agudelo MD [address] [facility], [address] [place] [address] [email or web address] documented as of this encounter Visit Diagnoses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documented in this encounter Additional Health Concerns Infection Onset Date Last Indicated Resolved Time CoV-Risk 01/22/2021 01/22/2021 02/01/2021 1:45 AM EDT COVID-19 05/05/2023 05/05/2023 05/26/2023 1:21 AM EST documented as of this encounter Care Teams Museum Preparator Relationship Specialty Start Date End Date Som Adkins MD [address] [place] [address] & [address] [place] [address] [email or web address] PCP - General Internal Medicine 05/26/17 11/04/21 Meliton Agudelo MD [address] [place] [address], [address] [place] [address] [email or web address] PCP - General Internal Medicine 11/05/21 Lamine Navarro MD [address] [place] [address] Gastroenterology 11/05/21 Iain Hicks MD [address] [place] [address] Ophthalmology 07/01/22 Meliton Agudelo MD [address] [place] [address], [address] [place] [address] [email or web address] Insurance Assigned Provider 09/27/23 Larry Anderson MD [address] [place] [address] Otolaryngology 11/10/23 documented as of this encounter Additional Source Comments The information contained in this document represents components of the legal health record. It is not the complete legal health record.[facility]
--- OUTSIDE RECORDS SUMMARY | 2025-02-16 15:01 | XMS_ITS | Encounter Summary ---
Author Organization [facility] Address [address] [facility] [address] [place] [address] Phone Care Team Providers Care Middle School Director Name Role Phone Som Adkins MD Primary Care Provider [phone] Meliton Agudelo MD Primary Care Provider [phone] Lamine Navarro MD Unavailable [phone] Iain Hicks MD Unavailable [phone] Meliton Agudelo MD Unavailable Larry Anderson MD Unavailable [phone] Encounter Details Date Type Department Care Team (Late st Contact Info) Description 03/06/2020 Ancillary Orders Virtual Department 30 [place] [address] Som Adkins MD 264 [facility] [address] [place] [address] [email or web address] Breast screening Social History Tobacco Use Types [...] 8:30 AM EDT Office Visit [facility] [address] [place] [address] Meliton Agudelo MD 22 [facility], [address] [place] [address] [email or web address] documented as of this encounter Results * BI MAMMOGRAM SCREENING WITH TOMOSYNTHESIS WITH CAD (BILATERAL) (06/05/2020 7:48 AM EST) Anatomical Region Laterality Modality Breast Left, Breast Right, Breast Bilateral Bila teral Mammography 06/05/2020 8:25 AM EST Impressions 06/05/2020 8:29 AM EST No mammographic signs of malignancy. Annual screening is recommended. BI-RADS CATEGORY: 2 - Benign finding. DENSITY: The breast tissue is heterogeneously dense, which could obscure a lesion on mammography. Narrative 06/05/2020 8:29 AM EST Bilateral mammography is performed in conjunction with computed aided detection. 3-D tomography along with 2-D C view imaging was also performed. Comparison made to previous dated as far back as 04/18/2014 and as recent as 05/31/2019. A sub-centimeter well-circumscribed lentiform shaped mass consistent with an intramammary lymph node in the posterior upper outer left breast is stable. No suspicious masses, areas of architectural distortion or suspicious microcalcifications. Procedure Note Schuyler Peace MD - 06/05/2020 Bilateral mammography is performed in conjunction with computed aideddetection. 3-D tomography along with 2-D C view imaging was alsoperformed. Comparison made to previous dated as far back as 04/18/2014 andas recent as 05/31/2019. A sub-centimeter well-circumscribed lentiform shaped mass consistent withan intramammary lymph node in the posterior upper outer left breast isstable. No suspicious masses, areas of architectural distortion orsuspicious microcalcifications. IMPRESSION: No mammographic signs of malignancy. Annual screening is recommended. BI-RADS CATEGORY: 2 - Benign finding. DENSITY: The breast tissue is heterogeneously dense, which could obscurea lesion on mammography. Som Adkins MD IMG MG EXAMS Final Result documented in this encounter Visit Diagnoses Diagnosis Breast screening Breast screening, unspecified Breast screening Breast screening, unspecified documented in this encounter Additional Health Concerns Infection Onset Date Last Indicated Resolved Time CoV-Risk 01/22/2021 01/22/2021 02/01/2021 1:45 AM EDT COVID-19 05/05/2023 05/05/2023 05/26/2023 1:21 AM EST documented as of this encounter Care Teams Middle School Director Relationship Specialty Start Date End Date Som Adkins MD [address] [place] [address] [address] [place] [address] [email or web address] PCP - General Internal Medicine 05/26/17 11/04/21 Meliton Agudelo MD [address] [place] [address] PCP - General Internal Medicine 11/05/21 Lamine Navarro MD [address] [place] [address] Gastroenterology 11/05/21 Iain Hicks MD [address] [place] [address] [email or web address] Ophthalmology 07/01/22 Meliton Agudelo MD [address] [place] [address] Insurance Assigned Provider 09/27/23 Larry Anderson MD [address] [place] [address] Otolaryngology 11/10/23 documented as of this encounter Additional Source Comments The information contained in this document represents components of the legal health record. It is not the complete legal health record.[facility]
--- OUTSIDE RECORDS SUMMARY | 2025-02-16 15:01 | XMS_ITS | Encounter Summary ---
Author Organization [facility] Address [address] [facility] [address] [place] [address] Phone Care Team Providers Care Commercial Front Load Operator Name Role Phone Som Adkins MD Primary Care Provider Meliton Agudelo MD Primary Care Provider [phone] Lamine Navraro MD Unavailable [phone] Iain Hicks MD Unavailable [phone] Meliton Agudelo MD Unavailable Larry Anderson MD Unavailable [phone] Encounter Details Date Type Department Care Team (Late st Contact Info) Description 04/12/2017 Ancillary Orders [facility] [address] [place] [address] [place] [address] Ken Bingham MD [address] [place] [address] Social History Tobacco Use Types Packs/Day Years [...] 8:30 AM EDT Office Visit [facility] [address] [place] [address] [place] [address] Meliton Agudelo MD 22 [facility], [address] [place] [address] documented as of this encounter Visit Diagnoses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documented in this encounter Additional Health Concerns Infection Onset Date Last Indicated Resolved Time CoV-Risk 01/22/2021 01/22/2021 02/01/2021 1:45 AM EDT COVID-19 05/05/2023 05/05/2023 05/26/2023 1:21 AM EST documented as of this encounter Care Teams Commercial Front Load Operator Relationship Specialty Start Date End Date JedSom MD [address] [place] [address] [address] [place] [address] [email or web address] PCP - General Internal Medicine 05/26/17 11/04/21 Meliton Agudelo MD [address] [place] [address], [address] [place] [address] PCP - General Internal Medicine 11/05/21 Lamine Navarro MD [address] [place] [address] Gastroenterology 11/05/21 Iain Hicks MD [address] [place] [address] [email or web address] Ophthalmology 07/01/22 Meliton Agudelo MD [address] [place] [address], [address] [place] [address] [email or web address] Insurance Assigned Provider 09/27/23 Larry Anderson MD [address] [place] [address] Otolaryngology 11/10/23 documented as of this encounter Additional Source Comments The information contained in this document represents components of the legal health record. It is not the complete legal health record.[facility]
--- OUTSIDE RECORDS SUMMARY | 2025-02-16 15:01 | XMS_ITS | Encounter Summary ---
Author Organization [facility] Address [address] [facility] [address] [place] [address] Phone Care Team Providers Care Process Improvement Analyst Name Role Phone Som Adkins MD Primary Care Provider Deidra Agudelo MD Primary Care Provider [phone] Lamine Navarro MD Unavailable [phone] Iain Hicks MD Unavailable [phone] Diedra Agudelo MD Unavailable [phone] Larry Anderson MD Unavailable Encounter Details Date Type Department Care Team (Late st Contact Info) Description 04/12/2017 Ancillary Orders [facility], [facility] [address] [place] [address] Ken Bingham MD 61 [place] [address] Visit for screening mammogram Social History Tobacco Use Types Packs/Day Years [...] Description 11/15/2025 8:30 AM EDT Office Visit [address] [place] [address] Deidra Agudelo MD 22 [facility], [address] [place] [address] [email or web address] documented as of this encounter Results * BI MAMMOGRAM SCREENING WITH TOMOSYNTHESIS WITH CAD (BILATERAL) (05/26/2017 7:39 AM EST) Anatomical Region Laterality Modality Breast Left, Breast Right, Breast Bilateral Bila teral Mammography 05/26/2017 7:45 AM EST Impressions 05/26/2017 7:56 AM EST No mammographic evidence of malignancy. Recommend routine annual surveillance. BI-RADS CATEGORY: 2 - Benign finding. DENSITY: The breast tissue is heterogeneously dense, an appearance which lowers the sensitivity of mammography. POS - [id number] Narrative 05/26/2017 7:56 AM EST 71-year-old female with no current breast symptoms. Comparison made to previous on 04/29/2016 and as far back as 04/09/2011. Interpretation made in conjunction with computer-aided detection and tomosynthesis. The breasts are heterogeneously dense, which may obscure small masses. Stable bilateral nodularity, left upper outer quadrant lymph node and right breast calcifications. There are no suspicious masses, areas of architectural distortion, or suspicious clusters of microcalcifications. Procedure Note Deidra Coy MD - 05/26/2017 71-year-old female with no current breast symptoms. Comparison made toprevious on 04/29/2016 and as far back as 04/09/2011. Interpretation madein conjunction with computer-aided detection and tomosynthesis. The breasts are heterogeneously dense, which may obscure small masses.Stable bilateral nodularity, left upper outer quadrant lymph node andright breast calcifications. There are no suspicious masses, areas of architectural distortion, orsuspicious clusters of microcalcifications. IMPRESSION: No mammographic evidence of malignancy. Recommend routine annualsurveillance. BI-RADS CATEGORY: 2 - Benign finding. DENSITY: The breast tissue is heterogeneously dense, an appearance whichlowers the sensitivity of mammography. POS - [id number] Ken Bingham MD IMG MG EXAMS Final Result documented in this encounter Visit Diagnoses Diagnosis Visit for screening mammogram Visit for screening mammogram documented in this encounter Additional Health Concerns Infection Onset Date Last Indicated Resolved Time CoV-Risk 01/22/2021 01/22/2021 02/01/2021 1:45 AM EDT COVID-19 05/05/2023 05/05/2023 05/26/2023 1:21 AM EST documented as of this encounter Care Teams Process Improvement Analyst Relationship Specialty Start Date End Date Jed, Som Beaver MD [address] [place] [address] [address] [place] [address] [email or web address] PCP - General Internal Medicine 05/26/17 11/04/21 Deidra Agudelo MD [address] [place] [address] [address] [place] [address] [email or web address] PCP - General Internal Medicine 11/05/21 Lamine Navarro MD [address] [place] [address] Gastroenterology 11/05/21 Iain Hicks MD [address] [place] [address] [email or web address] Ophthalmology 07/01/22 Deidra Agudelo MD [address] [place] [address], [address] [place] [address] [email or web address] Insurance Assigned Provider 09/27/23 Larry Anderson MD [address] [place] [address] Otolaryngology 11/10/23 documented as of this encounter Additional Source Comments The information contained in this document represents components of the legal health record. It is not the complete legal health record.[facility]
--- OUTSIDE RECORDS SUMMARY | 2025-02-16 15:01 | XMS_ITS | Encounter Summary ---
Author Organization [facility] Address [address] [facility] [address] [place] [address] Phone Care Team Providers Care Terminal Press Operator Name Role Phone Som Adkins MD Primary Care Provider Meliton Agudelo MD Primary Care Provider [phone] Lamine Navarro MD Unavailable [phone] Iain Hicks MD Unavailable [phone] Meliton Agudelo MD Unavailable [phone] Larry Anderson MD Unavailable Encounter Details Date Type Department Care Team (Late st Contact Info) Description 03/06/2020 Procedure Pass [address] [address] Social History Tobacco Use Types Packs/Day Years [...] Description 11/15/2025 8:30 AM EDT Office Visit [facility] [address] [place] [address] [place] [address] Meliton Agudelo MD 22 [facility], [address] [place] [address] [email or web address] documented as of this encounter Visit Diagnoses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documented in this encounter Additional Health Concerns Infection Onset Date Last Indicated Resolved Time CoV-Risk 01/22/2021 01/22/2021 02/01/2021 1:45 AM EDT COVID-19 05/05/2023 05/05/2023 05/26/2023 1:21 AM EST documented as of this encounter Care Teams Terminal Press Operator Relationship Specialty Start Date End Date JedSom MD [address] [place] [address] [address] [place] [address] [email or web address] PCP - General Internal Medicine 05/26/17 11/04/21 Meliton Agudelo MD [address] [place] [address], [address] [place] [address] [email or web address] PCP - General Internal Medicine 11/05/21 Lamine Navarro MD [address] [place] [address] Gastroenterology 11/05/21 Iain Hicks MD [address] [place] [address] [email or web address] Ophthalmology 07/01/22 Meliton Agudelo MD [address] [place] [address], [address] [place] [address] [email or web address] Insurance Assigned Provider 09/27/23 Larry Anderson MD [address] [place] [address] Otolaryngology 11/10/23 documented as of this encounter Additional Source Comments The information contained in this document represents components of the legal health record. It is not the complete legal health record.[facility]
--- OUTSIDE RECORDS SUMMARY | 2025-02-16 15:01 | XMS_ITS | Encounter Summary ---
Author Organization [facility] Address [address] [facility] [address] [place] [address] Phone Care Team Providers Care Overlock Sewing Machine Operator Name Role Phone Som Adkins MD Primary Care Provider Meliton Agudelo MD Primary Care Provider [phone] Lamine Navarro MD Unavailable [phone] Iain Hicks MD Unavailable [phone] Meliton Agudelo MD Unavailable [phone] Larry Anderson MD Unavailable Encounter Details Date Type Department Care Team (Late st Contact Info) Description 03/09/2021 Procedure Pass [address] [address] Social History Tobacco Use Types Packs/Day Years [...] Description 11/15/2025 8:30 AM EDT Office Visit [facility] Medicine [address] [place] [address] [place] [address] Meliton Agudelo MD 22 [facility], [address] [place] [address] documented as of this encounter Visit Diagnoses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documented in this encounter Additional Health Concerns Infection Onset Date Last Indicated Resolved Time COVID-19 05/05/2023 05/05/2023 05/26/2023 1:21 AM EST documented as of this encounter Care Teams Overlock Sewing Machine Operator Relationship Specialty Start Date End Date JedoSm MD [address] [place] [address] [address] [place] [address] [email or web address] PCP - General Internal Medicine 05/26/17 11/04/21 Meliton Agudelo MD [address] [place] [address], [address] [place] [address] PCP - General Internal Medicine 11/05/21 Lamine Navarro MD [address] [place] [address] Gastroenterology 11/05/21 Iain Hicks MD [address] [place] [address] Ophthalmology 07/01/22 Meliton Agudelo MD [address] [place] [address] [address] [place] [address] Insurance Assigned Provider 09/27/23 Larry Anderson MD [address] [place] [address] Otolaryngology 11/10/23 documented as of this encounter Additional Source Comments The information contained in this document represents components of the legal health record. It is not the complete legal health record.[facility]
--- OUTSIDE RECORDS SUMMARY | 2025-02-16 15:01 | XMS_ITS | Encounter Summary ---
Author Organization [facility] Address [address] [address] Phone Care Team Providers Care Mainspring Strip Gauger Name Role Phone Som Adkins MD Primary Care Provider [phone] Meliton Agudelo MD Primary Care Provider [phone] Lamine Navarro MD Unavailable [phone] Iain Hicks MD Unavailable [phone] Meliton Agudelo MD Unavailable [phone] Larry Anderson MD Unavailable Reason for Referral * Physical Therapy (Routine) - Closed Specialty Diagnoses / Procedures Referred By Geoff lee Referred To Contact Physical Therapy Diagnoses Encounter for rehabilitation Som Adkins MD Phone: tel: fax: [email or web address] [address] [place] [address] Phone: tel: Referral ID Status Reason Start Date Expiration Date Visits Re quested Visits Authorized [id number] Closed 11/25/2017 06/22/2018 99 99 Encounter Details Date Type Department Care Team (Latest Contact Info) Description 11/04/2017 Transcribe Orders [facility] Rehabilitation Services [address] [place] [address] Som Adkins MD [address] [place] [address] [address] [email or web address] Encounter for rehabilitation (Primary Dx) Social History Tobacco Use Types [...] Description 11/15/2025 8:30 AM EDT Office Visit [address] [address] Meliton Agudelo MD [address] [place] [address], [address] [place] [address] [email or web address] Scheduled Referrals Name Type Priority Associated Diagnoses Orde r Schedule Ambulatory referral to [facility] Physical Therapy Outpatient Referral Routine Encounter for rehabilitation Ordered: 11/04/2017 documented as of this encounter Visit Diagnoses Diagnosis Encounter for rehabilitation- Primary documented in this encounter Additional Health Concerns Infection Onset Date Last Indicated Resolved Time CoV-Risk 01/22/2021 01/22/2021 02/01/2021 1:45 AM EDT COVID-19 05/05/2023 05/05/2023 05/26/2023 1:21 AM EST documented as of this encounter Care Teams Mainspring Strip Gauger Relationship Specialty Start Date End Date Jed, Som Beaver MD [address] [place] [address] [email or web address] PCP - General Internal Medicine 05/26/17 11/04/21 Meliton Agudelo MD [address] [place] [address], [address] [place] [address] PCP - General Internal Medicine 11/05/21 Lamine Navarro MD [address] [place] [address] Gastroenterology 11/05/21 Iain Hicks MD [address] [place] [address], [address] [place] [address] Ophthalmology 07/01/22 Meliton Agudelo MD [address] [place] [address], [address] [place] [address] Insurance Assigned Provider 09/27/23 Larry Anderson MD [address] [place] [address] Otolaryngology 11/10/23 documented as of this encounter Additional Source Comments The information contained in this document represents components of the legal health record. It is not the complete legal health record.[facility]
--- OUTSIDE RECORDS SUMMARY | 2025-02-16 15:01 | XMS_ITS | Encounter Summary ---
Author Organization [facility] Address [address] [facility] [address] [place] [address] Phone Care Team Providers Care Overhead Irrigator Name Role Phone Som Adkins MD Primary Care Provider Meliton Agudelo MD Primary Care Provider [phone] Lamine Navarro MD Unavailable [phone] Iain Hicks MD Unavailable [phone] Meliton Agudelo MD Unavailable [phone] Larry Anderson MD Unavailable [phone] Encounter Details Date Type Department Care Team (Late st Contact Info) Description 11/04/2017 Ancillary Orders Virtual Department [address] [place] [address] Som Adkins MD [address] [facility] [address] [place] [address] [email or web address] Breast screening; Trochanteric bursitis of left hip Social History Tobacco Use Types Packs/Day Years [...] Description 11/15/2025 8:30 AM EDT Office Visit [facility] [address] [place] [address] Meliton Agudelo MD [address] [place] [address], [address] [place] [address] [email or web address] documented as of this encounter Results * BI MAMMOGRAM SCREENING WITH TOMOSYNTHESIS WITH CAD (BILATERAL) (05/27/2018 7:31 AM EST) Anatomical Region Laterality Modality Breast Left, Breast Right, Breast Bilateral Bila teral Mammography 05/27/2018 9:12 AM EST Impressions 05/27/2018 9:14 AM EST BILATERAL BREASTS: Negative, no evidence of malignancy. Normal interval follow- up is recommended in 12 months. Bi-RADS: BI-RADS CATEGORY: 1 - Negative. DENSITY: The breast tissue is heterogeneously dense, an appearance which lowers the sensitivity of mammography. POS - [id number] Narrative 05/27/2018 9:14 AM EST STUDY: Bilateral screening mammography with tomosynthesis and CAD TECHNIQUE: Bilateral full-field digital screening mammography is obtained and read in conjunction with computer-aided detection. Tomosynthesis as well as 2-D C view imaging were obtained. COMPARISON: Comparison made to multiple prior, most recent May 26, 2017, and most remote April 13, 2012. BREAST COMPOSITION: The breasts are heterogeneously dense, which may obscure small masses. BILATERAL BREASTS: No significant masses, calcifications or other abnormalities are seen. Procedure Note Annette Mcgarry MD - 05/27/2018 STUDY: Bilateral screening mammography with tomosynthesis and CAD TECHNIQUE: Bilateral full-field digital screening mammography is obtainedand read in conjunction with computer-aided detection. Tomosynthesis aswell as 2-D C view imaging were obtained. COMPARISON: Comparison made to multiple prior, most recent May, and most remote April 13, 2012. BREAST COMPOSITION: The breasts are heterogeneously dense, which mayobscure small masses. BILATERAL BREASTS: No significant masses, calcifications or otherabnormalities are seen. IMPRESSION: BILATERAL BREASTS: Negative, no evidence of malignancy. Normal intervalfollow-up is recommended in 12 months. Bi-RADS: BI-RADS CATEGORY: 1 - Negative. DENSITY: The breast tissue is heterogeneously dense, an appearance whichlowers the sensitivity of mammography. POS - [id number] us Som Adkins MD IMG MG EXAMS Final Result * XR HIP 2-3 VW LEFT (11/05/2017 7:28 AM EDT) Anatomical Region Laterality Modality Hip Left Radiographic Donna ging 11/05/2017 9:45 AM EDT Impressions 11/05/2017 10:00 AM EDT No acute osseous abnormality. POS - [id number] Narrative 11/05/2017 10:00 AM EDT EXAM: Radiographs of the left hip, 2 views COMPARISON: None FINDINGS: No acute fracture or dislocation. The femoral head is well seated within the acetabulum. Very small calcification noted posterior to the femoral neck on the lateral view is probably secondary to prior trauma. Procedure Note Annette Mcgarry MD - 11/05/2017 EXAM: Radiographs of the left hip, 2 views COMPARISON: None FINDINGS: No acute fracture or dislocation. The femoral head is well seated withinthe acetabulum. Very small calcification noted posterior to the femoralneck on the lateral view is probably secondary to prior trauma. IMPRESSION: No acute osseous abnormality. POS - [id number] us Som RAMSAY XR PELVIS Final Result documented in this encounter Visit Diagnoses Diagnosis Breast screening Breast screening, unspecified Trochanteric bursitis of left hip Trochanteric bursitis of left hip Breast screening Breast screening, unspecified documented in this encounter Additional Health Concerns Infection Onset Date Last Indicated Resolved Time CoV-Risk 01/22/2021 01/22/2021 02/01/2021 1:45 AM EDT COVID-19 05/05/2023 05/05/2023 05/26/2023 1:21 AM EST documented as of this encounter Care Teams Overhead Irrigator Relationship Specialty Start Date End Date JedSom MD [address] [place] [address] [address] [place] [address] [email or web address] PCP - General Internal Medicine 05/26/17 11/04/21 Meilton Agudelo MD [address] [place] [address], [address] [place] [address] PCP - General Internal Medicine 11/05/21 Lamine Navarro MD [address] [place] [address] Gastroenterology 11/05/21 Iain Hicks MD [address] [place] [address] Ophthalmology 07/01/22 Meliton Agudelo MD [address] [place] [address], [address] [place] [address] Insurance Assigned Provider 09/27/23 Larry Anderson MD [address] [place] [address] Otolaryngology 11/10/23 documented as of this encounter Additional Source Comments The information contained in this document represents components of the legal health record. It is not the complete legal health record.[facility]
--- OUTSIDE RECORDS SUMMARY | 2025-02-16 15:01 | XMS_ITS | Clinical Summary ---
Author Organization [facility] Address [address] [address] Phone Care Team Providers Care Material Movers Name Role Phone Meliton Agudelo MD Primary Care Provider [phone] Lamine Navarro MD Unavailable [phone] Iain Hicks MD Unavailable [phone] Meliton Agudelo MD Unavailable [phone] Larry Anderson MD Unavailable Allergies Active Allergy Reactions Criticality Noted Date Comments Clarithromycin Unknown 05/08/2023 Erythromycin 04/20/2018 Levofloxacin Other (See Comments) 04/20/2018 Legs swell Sulfamethoxazole-Trimethopr im Hives 04/20/2018 Azithromycin Nausea and/or Vomiting 04/20/2018 Medications VIT C/E/ZN/COPPR/UMER TEIN/ZEAXAN (PRESERVISION AREDS 2 ORAL) Active dicyclomine (BENTYL) 10 MG capsule Take 1 capsule by mouth 4 (four) times a day as needed. Active vitamin E 400 UNIT capsule Take 1 capsule by mouth daily. Active pantoprazole (PROTONIX) 40 MG tablet Take 1 tablet by mouth daily. Active multivitamins capsule Orally Active Medication-Free Text Calcium 600 + D - Tablet, Si tablet with food Orally Once a day Active turmeric/turmer ic ext/pepr ext (TURMERIC-TURME GERALDO EXT-PEPPER ORAL) Take by mouth. Activ e TOPROL XL 25 mg 24 hr tablet TAKE 1 TABLET BY MOUTH EACH EVENING. MAY TAKE EXTRA 1/2 PER DAY NEEDED FOR PALPITATIONS 120 tablet 1 5 Active fluticasone propionate (FLONASE) 50 mcg/actuation nasal sprayIndication s:Non-seasonal allergic rhinitis due to other allergic trigger SPRAY 2 SPRAYS BY NASAL ROUTE 2 (TWO) TIMES A DAY NEEDED 48 mL 1 5 Active Active Problems Problem Noted Date Diagnosed Date History of colonic polyps 11/10/2024 Overview (11/10/2024): Colon polyps in 2014, normal colonoscopy in 2019. Angel to recheck in 2024 Vulvar burning 04/27/2024 Overview (04/27/2024): Not constant, present x 7-10 days Benign exam except atrophic findings Assessment & Plan (04/27/2024 3:19 PM EST): Recommend either emollient or topical E2 (or both) OK to try an OTC topical steroid again, though I do not see signs of inflammation or dermatitis Gastroesophageal reflux disease without esophagi tis 11/10/2023 Assessment & Plan (11/10/2024 9:38 AM EDT): Well-controlled, continue current medication Assessment & Plan (11/10/2023 9:46 AM EDT): Doing well with PPI, continue the same. Retraction of left nipple 05/10/2022 Assessment & Plan (07/09/2023 9:31 AM EST): On exam today, there appears to be a very tiny seborrheic keratosis on the nipple, but there is been no increased in her sense of an inversion, there is no thickening appears normal today. Happy to see her if she notices any further changes for repeat breast exam Assessment & Plan (11/04/2022 12:05 PM EDT): Normal recent mammogram with no clinical changes. If she notes any change asked her to let me know so we can pursue further evaluation if needed. Assessment & Plan (05/10/2022 3:54 PM EST): Retraction is only intermittent and very transitory. The exam is normal. I suspect this is a variation. Because she had a recent COVID-19 vaccine, and no other abnormalities noted, I recommend holding off on doing her mammogram until her appointment in June. If she notes any change, I asked her to contact her office sooner. Non-seasonal allergic rhinitis 11/05/2021 Overview (11/05/2021): Immunotherapy from Dr Anderson Assessment & Plan (11/10/2023 9:45 AM EDT): Symptoms are likely due to inadequately treated allergic rhinitis. Try using Flonase 1 to 2 sprays in each nostril twice daily. I demonstrated for the proper way to administer the medication. She could also use cetirizine with or without Flonase. If neither 1 of these is helpful, asked her to be reevaluated by her ENT. Assessment & Plan (11/05/2021 12:32 PM EDT): Clinically she is doing well. Follow-up with ENT for immunotherapy. Paroxysmal supraventricular tachycardia 11/06/19 Assessment & Plan (11/10/2024 9:38 AM EDT): Well-controlled using metoprolol, continue the same Assessment & Plan (08/12/2024 11:10 AM EST): She is having benign sounding palpitations. She may be having some escape beats from sinus of bradycardia. Holter interpretation is pending. Unless Holter monitor shows a significant abnormality, no other treatment or evaluation are needed at this time. Assessment & Plan (07/26/2024 11:21 AM EST): Well-controlled on Toprol XL4 with no recent breakthrough episodes. -Continue current medication regimen. Assessment & Plan (11/10/2023 9:45 AM EDT): Well-controlled, continue current medication Assessment & Plan (11/04/2022 12:05 PM EDT): Doing well with metoprolol, continue the same Assessment & Plan (07/01/2022 5:05 PM EST): Doing well with metoprolol, continue the same. She can take her dose on the morning of surgery. Assessment & Plan (11/05/2021 12:32 PM EDT): Well controlled with current medication. Continue the same. Other irritable bowel syndrome 11/05/2021 Assessment & Plan (11/05/2021 12:33 PM EDT): Well-controlled and she on rare occasion uses dicyclomine. Continue the same. If she like me to prescribe this medication in future I be happy to [place] 01/22/2021 Resolved Problems Problem Noted Date Diagnosed Date Resolved Date Abnormal mammogram of right breast 07/15/2023 08/12/2024 Thrush 06/12/2023 11/10/2023 Assessment & Plan (06/12/2023 3:28 PM EST): Pt without full resolution of thrush. Will trial nystatin swish to further treat. She will call with worsening or failure to improve. Advised on proper use. Pt verbalized understanding, agreeable to plan. She has follow up with [facility] in early June. Will call them if vaginal symptoms worsen again but otherwise will continue to monitor. Acute non-recurrent frontal sinusitis 05/19/2023 11/10/2023 Assessment & Plan (05/19/2023 2:51 PM EST): 14+ days of symptoms starting with Covid infection. Given history of bacterial sinusitis and lack of improvement, will treat with antibiotics. Push fluids, continue warm compresses. OK for ibuprofen or Tylenol as needed for discomfort. Call with worsening or failure to improve. She agrees. I recommended that she call if she develops symptoms of yeast infection. Fluconazole has not been available recently and I would start with OTC topical treatment. Hypercholesterolemia 11/04/2022 024 Assessment & Plan (11/04/2022 12:05 PM EDT): Cholesterol is mildly elevated, continue dietary management Cortical cataract of both eyes 07/01/2022 11/04/2022 Assessment & Plan (07/01/2022 5:05 PM EST): She is low risk for complication related to surgery. There is no contraindication to proceeding with her cataract surgery. Sebaceous cyst of labia 01/22/2021 1211/2020 Encounters Date Type Department Care Team Description 01/09/2025 Refill [facility] Medicine [address] [place] [address] Tika Kwong, ISAAC Medication Refill from Last 3 Months Immunizations Immunization Administration Dates Next Due COVID-19 (Pre-04/14) Pfizer Vaccine, mRNA, PF 08/01/2020,07/15/2020 Influenza High-Dose Quadriva lent Preservative Free IM 03/29/2022 Influenza Quadrivalent Adjuv anted Preservative Free IM 04/23/2023,03/20/2021,04/06/2020 Influenza Trivalent Adjuvant ed Preservative free IM 04/09/2024 Pneumococcal conjugate PCV13 12/07/2019 Pneumococcal conjugate PCV21 09/10/2024 Pneumococcal polysaccharide PPSV23 02/19/2021 Tdap 07/01/2013 Zoster recombinant 11/13/2018,09/04/2018 Family History Medical History Relation Comments Breast cancer Daughter Hypertension Father Stroke Father CV disease Maternal Grandfather Hypertension Maternal Grandfather Diabetes mellitus Mother Hypertension Mother Stroke Mother CV disease Paternal Grandfather Hypertension Paternal Grandfather Hypertension Sibling Stroke Sibling Relation Status Comments Daughter Father Maternal Grandfather Mother Paternal Grandfather Sibling Social History Tobacco Use Types Packs/Day Years Used Date Smoking Tobacco: Never Passive Smoke Exposure: Never Smokeless Tobacco: Never Tobacco Cessation:Counseling Given: Not Answered Alcohol Use Standard Drinks/Week Comments Yes 1 (1 standard drink = 0.6 oz pur e alcohol) occ Child or Family Care Answer Date Record ed Do you have problems with on e of the following making it difficult for you to work, study, or receive health care? No 11/05/2021 Education Answer Date Recorded Are you interested in more education? Not on rishabh e 11/07/2023 Are you concerned about learning?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 11/07/2023 No 11/07/2023 No 11/07/2023 Food Answer Date Recorded Within the past [...] with a working camera?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 Intimate Partner Violence Answer Date R ecorded Denied Basic Needs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 11/10/2024 In the past 12 months have y ou been in a relationship with a person who hurts, threatens, or tries to control you? No 11/10/2024 Worried food would run out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 11/10 In the past 12 months have y ou been in a relationship with a person who hurts, threatens, or tries to control you? 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 Last Filed Vital Signs Vital Sign Reading Time Taken Comments Blood Pressure 110/52 11/10/2024 8:51 AM EDT Pulse 68 11/10/2024 8:51 AM EDT Temperature 36.2 C (97.2 F) 11/10/2024 8:51 AM EDT Respiratory Rate 18 01/22/2021 11:30 AM EDT Oxygen Saturation 99% 11/10/2024 8:51 AM EDT Inhaled Oxygen Concentration - - Weight 51.3 kg (113 lb) 11/10/2024 8:51 AM EDT Height 156.4 cm (5' 1.58 ) 11/10/2024 8:51 AM ED T Body Mass Index 20.95 11/10/2024 8:51 AM EDT Plan of Treatment Upcoming Encounters Date Type Department Care Team (Late st Contact Info) Description 11/15/2025 8:30 AM EDT Office Visit [facility] Medicine [address] [place] [address] [place] [address] Meliton Agudelo MD [address] [facility], [address] [place] [address] [email or web address] Health Maintenance Due Date Last Done Comments HEPATITIS C SCREENING 1963 RSV VACCINE (1 - 1-dose 75+ series) 2022 Adult Td,Tdap Booster 07/01/2023 07/01/2013 COVID-19 VACCINE ( season) 2024 03/24/2023, 04/15/2022, 10/29/2021, Additional history exists DEPRESSION SCREENING 11/10/2025 11/10/2024 LIPID PANEL 10/31/2027 10/30/2022, 03/0 02/2022, 08/29/2021, Additional history exists OSTEOPOROSIS SCREENING INITIAL (ONE-TIME) 12/01/2034 Postponed from 2012 (Not Clinically Appropriate) ZOSTER VACCINES Completed 11/13/2018, 09/04/2018 PNEUMOCOCCAL VACCINES (50+ years) Completed 09/10/2024, 02/19/2021, 12/07/2019 SMOKING STATUS SCREENING (Once After 26 Yrs) Completed 11/10/2024 HEPATITIS A VACCINES Aged Out No long er eligible based on patient's age to complete this topic HIB VACCINES Aged Out No longer eligi ble based on patient's age to complete this topic MENINGOCOCCAL VACCINES (ACWY) Aged Out No longer eligible based on patient's age to complete this topic MENINGOCOCCAL VACCINES (B) Aged Out N o longer eligible based on patient's age to complete this topic Medical Devices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 Procedures Procedure Name Priority Date/Time Associated Diagnosis Comments LIPID PANEL Routine 10/30/2022 8:37 AM EDT from Last 3 Months or Most Recently Relevant to Health Maintenance Results * (ABNORMAL) Lipid panel (10/30/2022 8:37 AM EDT) HDL 69 mg/dL [facility] Comment: Interpretation <40 mg/dL: Low HDL cholesterol (major risk factor for CHD) Greater than or equal to 60 mg/dL: High HDL cholesterol ( negative risk factor for CHD) HDL - cholesterol is affected by a number of factors, e.g. smoking, excerise, hormones, sex and age. CHOLESTEROL 195 0 - 240 mg/dL [facility] TRIGLYCERIDES 40 30 - 160 mg/dL [facility] LDL 118 50 - 129 mg/dL [facility] Comment: LDL levels in terms of risk for coronary heart disease: <100 mg/dL: Optimal 100-129 mg/dL: Near or above optimal 130-159 mg/dL: Borderline high 160-189 mg/dL: High >190 mg/dL: Very High CARDIAC RISK RATIO 2.8(L) 3.3 - 4.4 [facility] 10/30/2022 8:37 AM EDT 10/30/2022 8:42 AM EDT us Meliton Agudelo MD LAB BLOOD ORDERABLES Final Result [facility] [address] [place] [address] from Last 3 Months or Most Recently Relevant to Health Maintenance Insurance MEDICARE PART A & B [employer] MEDICARE SUPPLEMENT MEDICARE PART A & B [facility] EXTENSION MEDICARE SUPPLEMENT MEDICARE PART A & B [employer] MED[employer]ARE SUPPLEMENT MEDICARE PART A & B [employer] MED[employer]ARE SUPPLEMENT MEDICARE PART A & B [facility] MEDICARE SUPPLEMENT MEDICARE PART A & B [facility] EXTENSION MEDICARE SUPPLEMENT MEDICARE PART A & B [facility] EXTENSION MEDICARE SUPPLEMENT MEDICARE PART A & B [employer] MEDICARE SUPPLEMENT MEDICARE PART A & B [employer] EXTENSION MEDICARE SUPPLEMENT Care Teams Material Movers Relationship Specialty Start Date End Date Meliton Agudelo MD [address] [place] [address], [address] [place] [address] PCP - General Internal Medicine 11/05/21 Lamine Navarro MD [address] [place] [address] Gastroenterology 11/05/21 Iain Hicks MD [address] [place] [address] [place] [address] Ophthalmology 07/01/22 Meliton Agudelo MD [address] [place] [address], [address] [place] [address] Insurance Assigned Provider 09/27/23 Larry Anderson MD [address] [place] [address] Otolaryngology 11/10/23 Additional Source Comments The information contained in this document represents components of the legal health record. It is not the complete legal health record.[facility]
--- OUTSIDE RECORDS SUMMARY | 2025-02-16 15:01 | XMS_ITS | Encounter Summary ---
Author Organization [facility] Address [address] [facility] [address] [place] [address] Phone Care Team Providers Care Reinsurance Clerk Name Role Phone Meliton Agudelo MD Primary Care Provider [phone] Lamine Navarro MD Unavailable [phone] Iain Hicks MD Unavailable [phone] Meliton Agudelo MD Unavailable [phone] Larry Anderson MD Unavailable [phone] Encounter Details Date Type Department Care Team (Late st Contact Info) Description 04/12/2024 Procedure Pass [facility], [facility] [address] [place] [address] Social History Tobacco Use Types Packs/Day Years Used Date Smoking Tobacco: Never Passive Smoke Exposure: Never Smokeless Tobacco: Never Alcohol Use Standard Drinks/Week Comments Yes 1 [...] ecorded Denied Basic Needs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 11/10/2023 In the past 12 months have y ou been in a relationship with a person who hurts, threatens, or tries to control you? No 11/10/2023 Worried food would run out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 11/09 In the past 12 months have y ou been in a relationship with a person who hurts, threatens, or tries to control you? 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 documented as of this encounter Plan of Treatment Upcoming Encounters Date Type Department Care Team (Late st Contact Info) Description 11/15/2025 8:30 AM EDT Office Visit [facility] [facility] [address] [place] [address] Meliton Agudelo MD [address] [facility], [address] [place] [address] documented as of this encounter Visit Diagnoses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documented in this encounter Additional Health Concerns Assessment Noted Time PHQ-2 Depression Total Score: 0 11/10/19 8:49 AM EDT documented as of this encounter Care Teams Reinsurance Clerk Relationship Specialty Start Date End Date Meliton Agudelo MD [address] [place] [address], [address] [place] [address] PCP - General Internal Medicine 11/05/21 Lamine Navarro MD [address] [place] [address] Gastroenterology 11/05/21 Iain Hicks MD [address] [place] [address], [address] [address] Ophthalmology 07/01/22 Meliton Agudelo MD [address] [place] [address], [address] [place] [address] Insurance Assigned Provider 09/27/23 Larry Anderson MD [address] [place] [address] Otolaryngology 11/10/23 documented as of this encounter Additional Source Comments The information contained in this document represents components of the legal health record. It is not the complete legal health record.[facility]
== END 2025-02-16 14:07 | disposition home or self-care (01) ==
LOC: HO.HMGAL 14:04
PROVIDERS: PCP Internal Medicine; Visit Provider Registered Nurse Emergency
DX: J30.89 Other allergic rhinitis (principal)
CPT/HCPCS: 95117; 95165

== ENCOUNTER 2025-02-23 14:05 | Outpatient (AMB) | payer MEDICARE, OTHER, SELFPAY ==
--- OUTSIDE RECORDS SUMMARY | 2025-02-23 16:21 | XMS_ITS | Encounter Summary ---
Author Organization [facility] Address [address] [facility] [address] [place] [address] Phone Care Team Providers Care Renewals Manager Name Role Phone Som Adkins MD Primary Care Provider [phone] Meliton Agudelo MD Primary Care Provider [phone] Lamine Navarro MD Unavailable [phone] Iain Hicks MD Unavailable [phone] Meliton Agudelo MD Unavailable [phone] Larry Anderson MD Unavailable [phone] Reason for Referral * Physical Therapy (Routine) - Closed Specialty Diagnoses / Procedures Referred By Geoff lee Referred To Contact Physical Therapy Diagnoses Encounter for rehabilitation Som Adkins MD Phone: tel: fax: [email or web address] [address] [place] [address] Phone: tel: Referral ID Status Reason Start Date Expiration Date Visits Re quested Visits Authorized [id number] Closed 11/25/2017 06/22/2018 99 99 Encounter Details Date Type Department Care Team (Latest Contact Info) Description 11/04/2017 Transcribe Orders [facility] [address] [place] [address] Som Adkins MD [address] [place] [address] [address] [email or web address] Encounter for rehabilitation (Primary Dx) Social History [...] Description 11/15/2025 8:30 AM EDT Office Visit [address] [address] Meliton Agudelo MD [address] [place] [address], [address] [place] [address] [email or web address] Scheduled Referrals Name Type Priority Associated Diagnoses Orde r Schedule Ambulatory referral to [facility] Physical Therapy Outpatient Referral Routine Encounter for rehabilitation Ordered: 11/04/2017 documented as of this encounter Visit Diagnoses Diagnosis Encounter for rehabilitation- Primary documented in this encounter Additional Health Concerns Infection Onset Date Last Indicated Resolved Time CoV-Risk 01/22/2021 01/22/2021 02/01/2021 1:45 AM EDT COVID-19 05/05/2023 05/05/2023 05/26/2023 1:21 AM EST documented as of this encounter Care Teams Renewals Manager Relationship Specialty Start Date End Date Jed, Som Beaver MD [address] [place] [address] [email or web address] PCP - General Internal Medicine 05/26/17 11/04/21 Meliton Agudelo MD [address] [place] [address], [address] [place] [address] PCP - General Internal Medicine 11/05/21 Lamine Navarro MD [address] [place] [address] Gastroenterology 11/05/21 Iain Hicks MD [address] [place] [address], [address] [place] [address] Ophthalmology 07/01/22 Meliton Agudelo MD [address] [place] [address], [address] [place] [address] Insurance Assigned Provider 09/27/23 Larry Anderson MD [address] [place] [address] Otolaryngology 11/10/23 documented as of this encounter Additional Source Comments The information contained in this document represents components of the legal health record. It is not the complete legal health record.[facility]
--- OUTSIDE RECORDS SUMMARY | 2025-02-23 16:21 | XMS_ITS | Encounter Summary ---
Author Organization [facility] Address [address] [facility] [address] [place] [address] Phone Care Team Providers Care Classroom Instructional Aide Name Role Phone Som Adkins MD Primary Care Provider [phone] Meliton Agudelo MD Primary Care Provider [phone] Lamine Navarro MD Unavailable [phone] Iain Hicks MD Unavailable [phone] Meliton Agudelo MD Unavailable [phone] Larry Anderson MD Unavailable [phone] Encounter Details Date Type Department Care Team (Late st Contact Info) Description 03/09/2021 Procedure Pass [address] [address] Social History Tobacco Use Types Packs/Day Years [...] Description 11/15/2025 8:30 AM EDT Office Visit [facility] [address] [place] [address] [place] [address] Meliton Agudelo MD [address] [place] [facility], [address] [place] [address] documented as of this encounter Visit Diagnoses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documented in this encounter Additional Health Concerns Infection Onset Date Last Indicated Resolved Time COVID-19 05/05/2023 05/05/2023 05/26/2023 1:21 AM EST documented as of this encounter Care Teams Classroom Instructional Aide Relationship Specialty Start Date End Date JedSom MD [address] [place] [address] [address] [place] [address] [email or web address] PCP - General Internal Medicine 05/26/17 11/04/21 Meliton Agudelo MD [address] [place] [address], [address] [place] [address] PCP - General Internal Medicine 11/05/21 Lamine Navarro MD [address] [place] [address] Gastroenterology 11/05/21 Iain Hicks MD [address] [place] [address] Ophthalmology 07/01/22 Meliton Agudelo MD [address] [place] [address] [address] [place] [address] Insurance Assigned Provider 09/27/23 Larry Anderson MD [address] [place] [address] Otolaryngology 11/10/23 documented as of this encounter Additional Source Comments The information contained in this document represents components of the legal health record. It is not the complete legal health record.[facility]
--- OUTSIDE RECORDS SUMMARY | 2025-02-23 16:21 | XMS_ITS | Encounter Summary ---
Author Organization [facility] Address [address] [facility] [address] [place] [address] Phone Care Team Providers Care Board Winder Name Role Phone Som Adkins MD Primary Care Provider [phone] Meliton Agudelo MD Primary Care Provider [phone] Lamine Navarro MD Unavailable [phone] Iain Hicks MD Unavailable [phone] Meliton Agudelo MD Unavailable [phone] Larry Anderson MD Unavailable [phone] Encounter Details Date Type Department Care Team (Late st Contact Info) Description 11/04/2017 Ancillary Orders Virtual Department 30 [place] [address] Som Adkins MD [address] [facility] [address] [place] [address] [email or web address] Breast screening; Trochanteric bursitis of left hip [...] Description 11/15/2025 8:30 AM EDT Office Visit [facility] [address] [place] [address] Meliton Agudelo MD [address] [place] [address], [address] [place] [address] [email or web address] documented as of this encounter Results * [...] lowers the sensitivity of mammography. POS - [id number] Narrative 05/27/2018 9:14 AM EST STUDY: Bilateral [...] whichlowers the sensitivity of mammography. POS - [id number] us Som Adkins MD IMG MG EXAMS [...] documented as of this encounter Care Teams Board Winder Relationship Specialty Start Date End Date JedSom MD [address] [place] [address] [address] [place] [address] [email or web address] PCP - General Internal Medicine 05/26/17 11/04/21 Meliton Agudelo MD [address] [place] [address], [address] [place] [address] PCP - General Internal Medicine 11/05/21 Lamine Navarro MD [address] [place] [address] Gastroenterology 11/05/21 Iain Hicks MD [address] [place] [address] Ophthalmology 07/01/22 Meliton Agudelo MD [address] [place] [address], [address] [place] [address] Insurance Assigned Provider 09/27/23 Larry Anderson MD [address] [place] [address] Otolaryngology 11/10/23 documented as of this encounter Additional Source Comments The information contained in this document represents components of the legal health record. It is not the complete legal health record.[facility]
--- OUTSIDE RECORDS SUMMARY | 2025-02-23 16:21 | XMS_ITS | Encounter Summary ---
Author Organization [facility] Address [address] [facility] [address] [place] [address] Phone Care Team Providers Care Dental Practice Manager Name Role Phone Som Adkins MD Primary Care Provider Meliton Agudelo MD Primary Care Provider [phone] Lamine Navarro MD Unavailable [phone] Iain Hicks MD Unavailable [phone] Meliton Agudelo MD Unavailable [phone] Larry Anderson MD Unavailable Encounter Details Date Type Department Care Team (Late st Contact Info) Description 03/01/2019 Ancillary Orders Virtual Department 30 [place] [address] Som Adkins MD [address] [facility] [address] [place] [address] [email or web address] Breast screening Social History Tobacco [...] 8:30 AM EDT Office Visit [facility] [address] [place] [address] Meliton Agudelo MD [address] [place] [address], [address] [place] [address] [email or web address] documented as of this encounter Results * [...] There are scattered fibroglandular densities. POS [id number] Smo Adkins MD IMG MG EXAMS Final Result documented in this encounter Visit Diagnoses Diagnosis Breast screening Breast screening, unspecified Breast screening Breast screening, unspecified documented in this encounter Additional Health Concerns Infection Onset Date Last Indicated Resolved Time CoV-Risk 01/22/2021 01/22/2021 02/01/2021 1:45 AM EDT COVID-19 05/05/2023 05/05/2023 05/26/2023 1:21 AM EST documented as of this encounter Care Teams Dental Practice Manager Relationship Specialty Start Date End Date Som Adkins MD [address] [place] [address] [address] [place] [address] [email or web address] PCP - General Internal Medicine 05/26/17 11/04/21 Meliton Agudelo MD [address] [place] [address], [address] [place] [address] [email or web address] PCP - General Internal Medicine 11/05/21 Lamine Navarro MD [address] [place] [address] Gastroenterology 11/05/21 Iain Hicks MD [address] [place] [address], [address] [address] Ophthalmology 07/01/22 Meliton Agudelo MD [address] [place] [address], [address] [place] [address] [email or web address] Insurance Assigned Provider 09/27/23 Larry Anderson MD [address] [place] [address] Otolaryngology 11/10/23 documented as of this encounter Additional Source Comments The information contained in this document represents components of the legal health record. It is not the complete legal health record.[facility]
--- OUTSIDE RECORDS SUMMARY | 2025-02-23 16:21 | XMS_ITS | Encounter Summary ---
Author Organization [facility] Address [address] [facility] [address] [place] [address] Phone Care Team Providers Care Escalator Service Mechanic Name Role Phone Meliton Agudelo MD Primary Care Provider [phone] Lamine Navarro MD Unavailable [phone] Iain Hicks MD Unavailable [phone] Meliton Agudelo MD Unavailable Larry Anderson MD Unavailable Encounter Details Date Type Department Care Team (Latest Contact Info) Description 04/09/2023 Transcribe Orders Virtual Department [address] [place], [place] [id number] Meliton Agudelo MD [address] [facility], [address] [place] [address] [email or web address] Encounter for screening mammogram for [...] high school, GED, job training, learning the Danish language, technical skills, or developing parenting skills)? 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 documented as of this encounter Plan of Treatment Upcoming Encounters Date Type Department Care Team (Late st Contact Info) Description 11/15/2025 8:30 AM EDT Office Visit [facility] [address] [place] [address] Meliton Agudelo MD [address] [facility], [address] [place] [address] documented as of this encounter Results * [...] documented as of this encounter Care Teams Escalator Service Mechanic Relationship Specialty Start Date End Date Meliton Agudelo MD [address] [place] [address], [address] [place] [address] PCP - General Internal Medicine 11/05/21 Lamine Navarro MD [address] [place] [address] Gastroenterology 11/05/21 Iain Hicks MD [address] [place] [address], [address] [place], [place] [id number] [email or web address] Ophthalmology 07/01/22 Meliton Agudelo MD [address] [place] [address], [address] [place] [address] [email or web address] Insurance Assigned Provider 09/27/23 Larry Anderson MD [address] [place] [address] [place] [address] Otolaryngology 11/10/23 documented as of this encounter Additional Source Comments The information contained in this document represents components of the legal health record. It is not the complete legal health record.[facility]
--- OUTSIDE RECORDS SUMMARY | 2025-02-23 16:21 | XMS_ITS | Encounter Summary ---
Author Organization [facility] Address [address] [facility] [address] [place] [address] Phone Care Team Providers Care Garbage Pick Up Worker Name Role Phone Som Adkins MD Primary Care Provider [phone] Meliton Agudelo MD Primary Care Provider [phone] Lamine Navarro MD Unavailable [phone] Iain Hicks MD Unavailable [phone] Meliton Agudelo MD Unavailable [phone] Larry Anderson MD Unavailable Encounter Details Date Type Department Care Team (Latest Contact Info) Description 07/31/2017 Transcribe Orders [address] [address] Som Adkins MD 264 [facility] [address] [place] [address] [email or web address] Routine medical exam (Primary Dx); High cholesterol; [...] 11/15/2025 8:30 AM EDT Office Visit [facility] [address] [place] [address] Meliton Agudelo MD [address] [place] [address], [address] [place] [address] [email or web address] documented as of this encounter Results * CBC and differential (07/31/2017 7:56 AM EST) WBC 5.60 3.40 - 11.20 K/uL [facility] RBC 4.57 3.80 - 4.80 M/uL [facility] HGB 13.8 12.0 - 15.0 g/dL [facility] HCT 42.1 36.0 - 46.0 % [facility] PLT 293 130 - 400 K/uL [facility] MCV 92.1 79.0 - 98.0 fL [facility] MCH 30.2 27.0 - 34.8 pg [facility] MCHC 32.8 31.5 - 36.0 g/dL [facility] RDW 12.7 10.8 - 14.6 % [facility] MPV 10.6 9.4 - 12.4 fl [facility] NRBC 0.00 /100 WBCs [facility] ABSOLUTE NRBC 0.00 K/uL [facility] DIFF METHOD Auto [facility] NEUTS 52.8 45.30 - 77.70 % [facility] LYMPHS 32.5 12.30 - 39.70 % [facility] MONOS 9.5 4.10 - 12.80 % [facility] EOS 3.9 0 - 7.2 % [facility] BASOS 1.1 0 - 2.80 % [facility] Granulocytes, immature (%) 0.2 0.0 - 0.9 % [facility] ABSOLUTE NEUTS 2.96 1.40 - 7.70 K/uL [facility] ABSOLUTE LYMPHS 1.82 0.60 - 3.20 K/uL [facility] ABSOLUTE MONOS 0.53 0.11 - 0.59 K/uL [facility] ABSOLUTE EOS 0.22 0.01 - 0.50 K/uL [facility] ABSOLUTE BASOS 0.06 0.00 - 0.08 K/uL [facility] Granulocytes, immature 0.01 0.00 - 0.05 K/uL [facility] Blood 07/31/2017 7:56 AM EST 07/31/2017 8:01 AM EST Som Adkins MD LAB BLOOD ORDERABLES Final Resu lt Performing Organization Address [facility] Co de Phone Number [address] [address] * TSH (07/31/2017 7:56 AM EST) TSH 3.24 0.27 - 4.20 uIU/mL [facility] Blood 07/31/2017 7:56 AM EST 07/31/2017 8:01 AM EST Som Adkins MD LAB BLOOD ORDERABLES Final Resu lt Performing Organization Address [facility] Co de Phone Number [address] [address] * (ABNORMAL) Lipid panel (07/31/2017 7:56 AM EST) HDL 76 mg/dL [facility] Comment: Interpretation: Risk Level Females Decreased >55mg/dL Average 50-55 mg/dL Increased <50 mg/dL CHOLESTEROL 210 0 - 240 mg/dL [facility] TRIGLYCERIDES 43 30 - 160 mg/dL [facility] LDL 125 50 - 129 mg/dL [facility] Comment: LDL levels in terms of risk for coronary heart disease: <100 mg/dL: Optimal 100-129 mg/dL: Near or above optimal 130-159 mg/dL: Borderline high 160-189 mg/dL: High >190 mg/dL: Very High CARDIAC RISK RATIO 2.8(L) 3.3 - 4.4 [facility] Blood 07/31/2017 7:56 AM EST 07/31/2017 8:01 AM EST Som Adkins MD LAB BLOOD ORDERABLES Final Resu lt Performing Organization Address [facility] Co de Phone Number [address] [address] * Comprehensive metabolic panel (07/31/2017 7:56 AM EST) SODIUM 142 133 - 146 mmol/L [facility] POTASSIUM 4.6 3.3 - 5.1 mmol/L [facility] CHLORIDE 102 96 - 108 mmol/L [facility] CO2 30 21 - 35 mmol/L [facility] BUN 15 6 - 19 mg/dL [facility] CREATININE 0.70 0.5 - 1.5 mg/dL [facility] GLUCOSE 80 70 - 99 mg/dL [facility] ALBUMIN 4.3 3.9 - 4.8 g/dL [facility] TOTAL PROTEIN 7.1 6.5 - 8.0 g/dL [facility] CALCIUM 9.4 8.4 - 10.3 mg/dL [facility] ALKALINE PHOSPHATASE 65 39 - 117 U/L [facility] TOTAL BILIRUBIN 0.6 0 - 1.2 mg/dL [facility] AST 25 0 - 37 U/L [facility] ALT 11 0 - 40 U/L [facility] GLOBULIN 2.8 1 - 4.8 g/dL [facility] EGFR >60 mL/min/1.7 3m2 [facility] Comment:Abnormal if <60. If patient is -Prydeinig, multiply the result by 1.21. ANION GAP 15 10 - 20 mmol/L [facility] Blood 07/31/2017 7:56 AM EST 07/31/2017 8:01 AM EST us Som Adkins MD LAB BLOOD ORDERABLES Final Resu lt [address] [address] documented in this encounter Visit Diagnoses Diagnosis Routine medical exam- Primary Routine general medical examination at a health care facility High cholesterol Pure hypercholesterolemia Fatigue, unspecified type documented in this encounter Additional Health Concerns Infection Onset Date Last Indicated Resolved Time CoV-Risk 01/22/2021 01/22/2021 02/01/2021 1:45 AM EDT COVID-19 05/05/2023 05/05/2023 05/26/2023 1:21 AM EST documented as of this encounter Care Teams Garbage Pick Up Worker Relationship Specialty Start Date End Date JedSom MD [address] [place] [address] [address] [place] [address] [email or web address] PCP - General Internal Medicine 05/26/17 11/04/21 Meliton Agudelo MD [address] [place] [address], [address] [place] [address] PCP - General Internal Medicine 11/05/21 Lamine Navarro MD [address] [place] [address] Gastroenterology 11/05/21 Iain Hicks MD [address] [place] [address] Ophthalmology 07/01/22 Meliton Agudelo MD [address] [place] [address], [address] [place] [address] Insurance Assigned Provider 09/27/23 Larry Anderson MD [address] [place] [address] Otolaryngology 11/10/23 documented as of this encounter Additional Source Comments The information contained in this document represents components of the legal health record. It is not the complete legal health record.[facility]
--- OUTSIDE RECORDS SUMMARY | 2025-02-23 16:21 | XMS_ITS | Clinical Summary ---
Author Organization [facility] [address] [facility] Address [address] [place] [address] Phone Care Team Providers Care 1St Pressman Name Role Phone Meliton Agudelo MD Primary Care Provider [phone] Allergies Active Allergy Reactions Criticality Noted Date Comments Azithromycin Nausea And Vomiting 04/20/2018 Erythromycin 08/26/2024 Levofloxacin 08/26/2024 Sulfamethoxazole-Trimethoprim 2024 Medications multivitamin-mi p-uiut-QK-vit K 45 mg iron- 800 mcg-120 mcg [...] Noted Date Diagnosed Date SVT (supraventricular tachycardia) (CMS/[facility] V24) 08/26/2024 Irritable bowel syndrome without diarrhea [...] (2 - Td or Tdap) 07/01/2023 07/01/2013 Depression Screening 06/23/2024 COVID-19 Vaccine ( season) 2025 03/24/2023, 04/15/2022, 10/30/2021, Additional history exists Influenza Vaccine (#1) 2025 , 04/23/2023, 03/29/2022, [...] Recently Relevant to Health Maintenance Insurance MEDICARE [facility] Care Teams 1St Pressman Relationship Specialty Start Date End Date Meliton Agudelo MD [address] [place] [address], [address] [place] [address] PCP - General Internal Medicine 08/26/24
--- OUTSIDE RECORDS SUMMARY | 2025-02-23 16:21 | XMS_ITS | Encounter Summary ---
Author Organization [facility] Address 399 [facility] [address] [place] [address] Phone Care Team Providers Care Fruit Or Nut Crops Farm Manager Name Role Phone Som Adkins MD Primary Care Provider Meliton Agudelo MD Primary Care Provider [phone] Lamine Navarro MD Unavailable [phone] Iain Hicks MD Unavailable [phone] Meliton Agudelo MD Unavailable [phone] Larry Anderson MD Unavailable [phone] Encounter Details Date Type Department Care Team (Late st Contact Info) Description 05/20/2020 Procedure Pass [facility] [address] [place] [address] Social History Tobacco Use Types Packs/Day Years [...] 11/15/2025 8:30 AM EDT Office Visit [facility] Medicine [address] [place] [address] [place] [address] Meliton Agudelo MD 22 [facility], [address] [place] [address] [email or web address] documented as of this encounter Visit Diagnoses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documented in this encounter Additional Health Concerns Infection Onset Date Last Indicated Resolved Time CoV-Risk 01/22/2021 01/22/2021 02/01/2021 1:45 AM EDT COVID-19 05/05/2023 05/05/2023 05/26/2023 1:21 AM EST documented as of this encounter Care Teams Fruit Or Nut Crops Farm Manager Relationship Specialty Start Date End Date Som Adkins MD [address] [place] [address] & [address] [place] [address] [email or web address] PCP - General Internal Medicine 05/26/17 11/04/21 Meliton Agudelo MD [address] [place] [address], [address] [place] [address] [email or web address] PCP - General Internal Medicine 11/05/21 Lamine Navarro MD [address] [place] [address] Gastroenterology 11/05/21 Iain Hicks MD [address] [place] [address] Ophthalmology 07/01/22 Meliton Agudelo MD [address] [place] [address], [address] [place] [address] [email or web address] Insurance Assigned Provider 09/27/23 Larry Anderson MD [address] [place] [address] Otolaryngology 11/10/23 documented as of this encounter Additional Source Comments The information contained in this document represents components of the legal health record. It is not the complete legal health record.[facility]
--- OUTSIDE RECORDS SUMMARY | 2025-02-23 16:21 | XMS_ITS | Encounter Summary ---
Author Organization [facility] Address 399 [facility] [address] [place] [address] Phone Care Team Providers Care Pediatrician Managing Partner Name Role Phone Meliton Agudelo MD Primary Care Provider [phone] Lamine Navarro MD Unavailable [phone] Iain Hicks MD Unavailable [phone] Meliton Agudelo MD Unavailable [phone] Larry Anderson MD Unavailable [phone] Encounter Details Date Type Department Care Team (Late st Contact Info) Description 04/09/2023 Procedure Pass [facility] [address] [place] [address] Social History Tobacco Use Types Packs/Day Years [...] high school, GED, job training, learning the Luxembourgish language, technical skills, or developing parenting skills)? 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 documented as of this encounter Plan of Treatment Upcoming Encounters Date Type Department Care Team (Late st Contact Info) Description 11/15/2025 8:30 AM EDT Office Visit [facility] [address] [place] [address] [place] [address] Meliton Agudelo MD [address] [place] [address], [address] [place] [address] [email or web address] documented as of this encounter Visit Diagnoses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documented in this encounter Additional Health Concerns Infection Onset Date Last Indicated Resolved Time COVID-19 05/05/2023 05/05/2023 05/26/2023 1:21 AM EST Assessment Noted Time PHQ-2 Depression Total Score: 0 11/05/19 9:02 AM EDT documented as of this encounter Care Teams Pediatrician Managing Partner Relationship Specialty Start Date End Date Meliton Agudelo MD [address] [place] [address], [address] [place] [address] [email or web address] PCP - General Internal Medicine 11/05/21 Lamine Navarro MD [address] [place] [address] Gastroenterology 11/05/21 Iain Hicks MD [address] [place] [address], [address] [place] [address] [email or web address] Ophthalmology 07/01/22 Meliton Agudelo MD [address] [place] [address], [address] [place] [address] [email or web address] Insurance Assigned Provider 09/27/23 Larry Anderson MD [address] [place] [address] Otolaryngology 11/10/23 documented as of this encounter Additional Source Comments The information contained in this document represents components of the legal health record. It is not the complete legal health record.[facility]
--- OUTSIDE RECORDS SUMMARY | 2025-02-23 16:21 | XMS_ITS | Encounter Summary ---
Author Organization [facility] Address 399 [facility] [address] [place] [address] Phone Care Team Providers Care Skein Drier Name Role Phone Som Adkins MD Primary Care Provider Meliton Agudelo MD Primary Care Provider [phone] Lamine Navarro MD Unavailable [phone] Iain Hicks MD Unavailable [phone] Meliton Agudelo MD Unavailable Larry Anderson MD Unavailable [phone] Encounter Details Date Type Department Care Team (Late st Contact Info) Description 04/12/2017 Ancillary Orders [facility] [address] [place] [address] [place] [address] Ken Bingham MD [address] [place] [address] Social History Tobacco Use Types Packs/Day Years [...] EDT Office Visit [facility] [address] [place] [address] [place] [address] Meliton Agudelo MD 22 [facility], [address] [place] [address] documented as of this encounter Visit Diagnoses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documented in this encounter Additional Health Concerns Infection Onset Date Last Indicated Resolved Time CoV-Risk 01/22/2021 01/22/2021 02/01/2021 1:45 AM EDT COVID-19 05/05/2023 05/05/2023 05/26/2023 1:21 AM EST documented as of this encounter Care Teams Skein Drier Relationship Specialty Start Date End Date JedSom MD [address] [place] [address] 10 [address] [place] [address] [email or web address] PCP - General Internal Medicine 05/26/17 11/04/21 Meliton Agudelo MD [address] [place] [address], [address] [place] [address] PCP - General Internal Medicine 11/05/21 Lamine Navarro MD [address] [place] [address] Gastroenterology 11/05/21 Iain Hicks MD [address] [place] [address] [email or web address] Ophthalmology 07/01/22 Meliton Agudelo MD [address] [place] [address], [address] [place] [address] [email or web address] Insurance Assigned Provider 09/27/23 Larry Anderson MD [address] [place] [address] Otolaryngology 11/10/23 documented as of this encounter Additional Source Comments The information contained in this document represents components of the legal health record. It is not the complete legal health record.[facility]
--- OUTSIDE RECORDS SUMMARY | 2025-02-23 16:21 | XMS_ITS | Clinical Summary ---
Author Organization [facility] Address [address] [address] Phone Care Team Providers Care Sparker And Patcher Name Role Phone Meliton Agudelo MD Primary Care Provider [phone] Lamine Navarro MD Unavailable [phone] Iain Hicks MD Unavailable [phone] Meliton Agudelo MD Unavailable [phone] Larry Anderson MD Unavailable [phone] Allergies Active Allergy Reactions Criticality Noted Date [...] to plan. She has follow up with COMPENSATION SUPERVISOR in early June. 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 [...] AM EDT Office Visit [facility] [address] [place] [address] Meliton Agudelo MD 22 [facility], [address] [place] [address] [email or web address] Health Maintenance Due Date Last Done Comments HEPATITIS C SCREENING 1965 RSV VACCINE (1 - 1-dose 75+ series) 2022 Adult Td,Tdap Booster 07/01/2023 07/01/2013 INFLUENZA VACCINE (#1) 2025 , 04/23/2023, 04/23/2023, Additional history exists COVID-19 VACCINE ( season) 2025 03/24/2023, 04/15/2022, 10/29/2021, Additional history exists DEPRESSION [...] (10/30/2022 8:37 AM EDT) HDL 69 mg/dL [facility] Comment: Interpretation <40 mg/dL: Low HDL cholesterol (major risk factor for CHD) Greater than or equal to 60 mg/dL: High HDL cholesterol ( negative risk factor for CHD) HDL - cholesterol is affected by a number of factors, e.g. smoking, excerise, hormones, sex and age. CHOLESTEROL 195 0 - 240 mg/dL [facility] TRIGLYCERIDES 40 30 - 160 mg/dL [facility] LDL 118 50 - 129 mg/dL [facility] Comment: LDL levels in terms of risk for coronary heart disease: <100 mg/dL: Optimal 100-129 mg/dL: Near or above optimal 130-159 mg/dL: Borderline high 160-189 mg/dL: High >190 mg/dL: Very High CARDIAC RISK RATIO 2.8(L) 3.3 - 4.4 [facility] 10/30/2022 8:37 AM EDT 10/30/2022 8:42 AM EDT us Meliton Agudelo MD LAB BLOOD ORDERABLES Final Result [facility] [address] [place] [address] from Last 3 Months or Most Recently Relevant to Health Maintenance Insurance MEDICARE PART A & B [employer] MEDICARE SUPPLEMENT MEDICARE PART A & B [employer] MEDICARE SUPPLEMENT MEDICARE PART A & B [facility] MEDICARE SUPPLEMENT MEDICARE PART A & B [facility] MEDICARE SUPPLEMENT MEDICARE PART A & B [facility] MEDICARE SUPPLEMENT MEDICARE PART A & B Member Subscriber Plan / Payer ( fective 2014-Present) Name:Dolores Tamara Member ID:[id number] Relation to Subscriber:Self Name:Tamara Bernal Subscriber ID:[id number] Payer ID:[id number] Group ID:Not on file Type:Medicare Address: [employer] [address] [place] [id number] [place] [address] MEDICARE SUPPLEMENT MEDICARE PART A & B [facility] MEDICARE SUPPLEMENT MEDICARE PART A & B [employer] MEDICARE SUPPLEMENT MEDICARE PART A & B [employer] MEDICARE SUPPLEMENT Care Teams Sparker And Patcher Relationship Specialty Start Date End Date Meliton Agudelo MD [address] [place] [address], [address] [place] [address] PCP - General Internal Medicine 11/05/21 Lamine Navarro MD [address] [place] [address] Gastroenterology 11/05/21 Iain Hicks MD [address] [place] [address], [address] [address] [email or web address] Ophthalmology 07/01/22 Meliton Agudelo MD [address] [place] [address], [address] [place] [address] Insurance Assigned Provider 09/27/23 Larry Anderson MD [address] [place] [address] Otolaryngology 11/10/23 Additional Source Comments The information contained in this document represents components of the legal health record. It is not the complete legal health record.[facility]
--- OUTSIDE RECORDS SUMMARY | 2025-02-23 16:21 | XMS_ITS | Patient Health Record ---
Author Organization [facility] Address [address] [place] [address] Care Team Providers Care Dehydrator Tender Name Role Phone Magnus WATSON, Meliton Primary Care Provider Ra Curtis Unavailable [phone] Allergies Allergen (clinical drug ingredient) Drug/Non Drug [...] a day; Duration: 30 day(s) Active Nystatin 592600 UNIT 1 tablet Orally every 8 hrs; [...] Route Administration Date Status Comme nts COVID-19 [employer] Vaccine Unknown 10/30/2021 Administered 1st 07/11/2020 [...] Status Risk Notes Problem Acquired hallux rigidus (0539818) Hallux rigidus, left foot (M20.22) Active confirmed Problem Acquired hallux rigidus (6533980) Hallux rigidus, right foot (M20.21) Active confirmed Plan Of Treatment Pending Test Test Name Order Date X ray : Foot, right 3V 03/15/2019 Insurance Providers Payer Name Payer Address Payer Phone Subscriber Number Group Number Insured Name Patient Relationship to Insured Coverage Start Date Coverage End Date Medicare National [employer]t [employer] [address] [place] [address] [id number] Tamara Bernal Self - patient is the insured [facility] ([facility]) [address] [place] [address] [id number] Tamara Bernal Self - patient is the insured Medical (General) History Medical History History ICD Code Measles Mumps Supraventricular tachycardia Surgical History Surgery Date(Month/Year) appendectomy ovarian surgery- right removed eye surgery-Blocked tear duct right eye 02/08/2019 eye surgery- blocked tear duct-right eye 03/24/2019
--- OUTSIDE RECORDS SUMMARY | 2025-02-23 16:21 | XMS_ITS | Encounter Summary ---
Author Organization [facility] Address 399 [facility] [address] [place] [address] Phone Care Team Providers Care Tank Setter Name Role Phone Meliton Agudelo MD Primary Care Provider [phone] Lamine Navarro MD Unavailable [phone] Iain Hicks MD Unavailable [phone] Meliton Agudelo MD Unavailable [phone] Larry Anderson MD Unavailable [phone] Encounter Details Date Type Department Care Team (Late st Contact Info) Description 03/19/2022 Procedure Pass [facility] [address] [place] [address] Social History Tobacco Use Types Packs/Day Years [...] high school, GED, job training, learning the Turkish language, technical skills, or developing parenting skills)? 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 documented as of this encounter Plan of Treatment Upcoming Encounters Date Type Department Care Team (Late st Contact Info) Description 11/15/2025 8:30 AM EDT Office Visit [facility] [address] [place] [address] Meliton Agudelo MD [address] [place] [address], [address] [place] [address] documented as of this encounter Visit Diagnoses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documented in this encounter Additional Health Concerns Infection Onset Date Last Indicated Resolved Time COVID-19 05/05/2023 05/05/2023 05/26/2023 1:21 AM EST Assessment Noted Time PHQ-2 Depression Total Score: 0 11/06/19 9:20 AM EDT documented as of this encounter Care Teams Tank Setter Relationship Specialty Start Date End Date Meliton Agudelo MD [address] [place] [address], [address] [place] [address] PCP - General Internal Medicine 11/05/21 Lamine Navarro MD [address] [place] [address] Gastroenterology 11/05/21 Iain Hicks MD [address] [place] [address], [address] [place], [place] [address] Ophthalmology 07/01/22 Meliton Agudelo MD [address] [place] [address], [address] [place] [address] [email or web address] Insurance Assigned Provider 09/27/23 Larry Anderson MD [address] [place] [address] [address] [place] [address] Otolaryngology 11/10/23 documented as of this encounter Additional Source Comments The information contained in this document represents components of the legal health record. It is not the complete legal health record.[facility]
--- OUTSIDE RECORDS SUMMARY | 2025-02-23 16:21 | XMS_ITS | Encounter Summary ---
Author Organization [facility] Address 399 [facility] [address] [place] [address] Phone Care Team Providers Care Flat Cutter Name Role Phone Som Adkins MD Primary Care Provider Deidra Agudelo MD Primary Care Provider [phone] Lamine Navarro MD Unavailable [phone] Iain Hicks MD Unavailable [phone] Deidra Agudelo MD Unavailable [phone] Larry Anderson MD Unavailable Encounter Details Date Type Department Care Team (Late st Contact Info) Description 04/12/2017 Ancillary Orders [facility] 30 [place] [address] Ken Bingham MD [address] [place] [address] Visit for screening mammogram Social History Tobacco [...] Description 11/15/2025 8:30 AM EDT Office Visit [address] [place] [address] Deidra Agudelo MD 22 [facility], [address] [place] [address] [email or web address] documented as of this encounter Results * [...] lowers the sensitivity of mammography. POS - [id number] Narrative 05/26/2017 7:56 AM EST 71-year-old female [...] whichlowers the sensitivity of mammography. POS - [id number] Ken Bingham MD IMG MG EXAMS Final Result documented in this encounter Visit Diagnoses Diagnosis Visit for screening mammogram Visit for screening mammogram documented in this encounter Additional Health Concerns Infection Onset Date Last Indicated Resolved Time CoV-Risk 01/22/2021 01/22/2021 02/01/2021 1:45 AM EDT COVID-19 05/05/2023 05/05/2023 05/26/2023 1:21 AM EST documented as of this encounter Care Teams Flat Cutter Relationship Specialty Start Date End Date Jed, Som Beaver MD [address] [place] [address] [address] [place] [address] [email or web address] PCP - General Internal Medicine 05/26/17 11/04/21 Deidra Agudelo MD [address] [place] [address] [address] [place] [address] [email or web address] PCP - General Internal Medicine 11/05/21 Lamine Navarro MD [address] [place] [address] Gastroenterology 11/05/21 Iain Hicks MD [address] [place] [address] [email or web address] Ophthalmology 07/01/22 Deidra Agudelo MD [address] [place] [address], [address] [place] [address] [email or web address] Insurance Assigned Provider 09/27/23 Larry Anderson MD [address] [place] [address] Otolaryngology 11/10/23 documented as of this encounter Additional Source Comments The information contained in this document represents components of the legal health record. It is not the complete legal health record.[facility]
--- OUTSIDE RECORDS SUMMARY | 2025-02-23 16:21 | XMS_ITS | Encounter Summary ---
Author Organization [facility] Address 399 [facility] [address] [place] [address] Phone Care Team Providers Care Vice Chancellor Name Role Phone Som Adkins MD Primary Care Provider Meliton Agudelo MD Primary Care Provider [phone] Lamine Navarro MD Unavailable [phone] Iain Hicks MD Unavailable [phone] Meliton Agudelo MD Unavailable Larry Anderson MD Unavailable [phone] Encounter Details Date Type Department Care Team (Late st Contact Info) Description 03/06/2020 Ancillary Orders Virtual Department [address] [place] [address] Som Adkins MD 264 [facility] [address] [place] [address] [email or web address] Social History Tobacco Use [...] Description 11/15/2025 8:30 AM EDT Office Visit [facility] [address] [place] [address] Meliton Agudelo MD 22 [facility], [address] [place] [address] [email or web address] documented as of this encounter Results * [...] documented as of this encounter Care Teams Vice Chancellor Relationship Specialty Start Date End Date Som Adkins MD [address] [place] [address] [address] [place] [address] [email or web address] PCP - General Internal Medicine 05/26/17 11/04/21 Meliton Agudelo MD [address] [place] [address] PCP - General Internal Medicine 11/05/21 Lamine Navarro MD [address] [place] [address] Gastroenterology 11/05/21 Iain Hicks MD [address] [place] [address] [email or web address] Ophthalmology 07/01/22 Meliton Agudelo MD [address] [place] [address] Insurance Assigned Provider 09/27/23 Larry Anderson MD [address] [place] [address] Otolaryngology 11/10/23 documented as of this encounter Additional Source Comments The information contained in this document represents components of the legal health record. It is not the complete legal health record.[facility]
--- OUTSIDE RECORDS SUMMARY | 2025-02-23 16:21 | XMS_ITS | Encounter Summary ---
Author Organization [facility] Address 399 [facility] [address] [place] [address] Phone Care Team Providers Care Computer Systems Security Administrator Name Role Phone Som Adkins MD Primary Care Provider Meliton Agudelo MD Primary Care Provider [phone] Lamine Navarro MD Unavailable [phone] Iain Hicks MD Unavailable [phone] Meliton Agudelo MD Unavailable [phone] Larry Anderson MD Unavailable [phone] Encounter Details Date Type Department Care Team (Late st Contact Info) Description 03/06/2020 Procedure Pass [address] [address] Social History Tobacco Use Types Packs/Day Years [...] 11/15/2025 8:30 AM EDT Office Visit [facility] [address] [place] [address] [place] [address] Meliton Agudelo MD 22 [facility], [address] [place] [address] [email or web address] documented as of this encounter Visit Diagnoses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documented in this encounter Additional Health Concerns Infection Onset Date Last Indicated Resolved Time CoV-Risk 01/22/2021 01/22/2021 02/01/2021 1:45 AM EDT COVID-19 05/05/2023 05/05/2023 05/26/2023 1:21 AM EST documented as of this encounter Care Teams Computer Systems Security Administrator Relationship Specialty Start Date End Date JedSom MD [address] [place] [address] [address] [place] [address] [email or web address] PCP - General Internal Medicine 05/26/17 11/04/21 Meliton Agudelo MD [address] [place] [address], [address] [place] [address] [email or web address] PCP - General Internal Medicine 11/05/21 Lamine Navarro MD [address] [place] [address] Gastroenterology 11/05/21 Iain Hicks MD [address] [place] [address] [email or web address] Ophthalmology 07/01/22 Meliton Agudelo MD [address] [place] [address], [address] [place] [address] [email or web address] Insurance Assigned Provider 09/27/23 Larry Anderson MD [address] [place] [address] Otolaryngology 11/10/23 documented as of this encounter Additional Source Comments The information contained in this document represents components of the legal health record. It is not the complete legal health record.[facility]
--- OUTSIDE RECORDS SUMMARY | 2025-02-23 16:21 | XMS_ITS | Encounter Summary ---
Author Organization [facility] Address [address] [facility] [address] [place] [address] Phone Care Team Providers Care High Pressure Operator Name Role Phone Meliton Agudelo MD Primary Care Provider [phone] Lamine Navarro MD Unavailable [phone] Iain Hicks MD Unavailable [phone] Meliton Agudelo MD Unavailable [phone] Larry Anderson MD Unavailable [phone] Encounter Details Date Type Department Care Team (Late st Contact Info) Description 08/25/2023 Procedure Pass [facility], [facility] 30 [place] [address] Social History Tobacco Use Types Packs/Day Years [...] high school, GED, job training, learning the Kinyar[place] language, technical skills, or developing parenting skills)? 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 documented as of this encounter Plan of Treatment Upcoming Encounters Date Type Department Care Team (Late st Contact Info) Description 11/15/2025 8:30 AM EDT Office Visit [facility] [address] [place] [address] [place] [address] Meliton Agudelo MD [address] [place] [address], [address] [place] [address] [email or web address] documented as of this encounter Visit Diagnoses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documented in this encounter Additional Health Concerns Assessment Noted Time PHQ-2 Depression Total Score: 0 11/05/19 23 9:02 AM EDT documented as of this encounter Care Teams High Pressure Operator Relationship Specialty Start Date End Date Meilton Agudelo MD [address] [place] [address], [address] [place] [address] PCP - General Internal Medicine 11/05/21 Lamine Navarro MD [address] [place] [address] Gastroenterology 11/05/21 Iain Hicks MD [address] [place] [address], [address] [place] [address] [email or web address] Ophthalmology 07/01/22 Meliton Agudelo MD [address] [place] [address], [address] [place] [address] [email or web address] Insurance Assigned Provider 09/27/23 Larry Anderson MD [address] [place] [address] 106 [place] [address] Otolaryngology 11/10/23 documented as of this encounter Additional Source Comments The information contained in this document represents components of the legal health record. It is not the complete legal health record.[facility]
--- OUTSIDE RECORDS SUMMARY | 2025-02-23 16:21 | XMS_ITS | Encounter Summary ---
Author Organization [facility] Address [address] [facility] [address] [place] [address] Phone Care Team Providers Care Compensation Analyst Name Role Phone Meliton Agudelo MD Primary Care Provider [phone] Lamine Navarro MD Unavailable [phone] Iain Hicks MD Unavailable [phone] Meliton Agudelo MD Unavailable [phone] Larry Anderson MD Unavailable [phone] Encounter Details Date Type Department Care Team (Late st Contact Info) Description 04/12/2024 Procedure Pass [facility], [facility] 30 [place] [address] Social History Tobacco Use Types Packs/Day Years 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, [employer]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 documented as of this encounter Plan of Treatment Upcoming Encounters Date Type Department Care Team (Late st Contact Info) Description 11/15/2025 8:30 AM EDT Office Visit [facility] [place] [facility] [address] [place] [address] Meliton Agudelo MD 22 [facility], [address] [place] [address] documented as of this encounter Visit Diagnoses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documented in this encounter Additional Health Concerns Assessment Noted Time PHQ-2 Depression Total Score: 0 11/10/19 8:49 AM EDT documented as of this encounter Care Teams Compensation Analyst Relationship Specialty Start Date End Date Meliton Agudelo MD [address] [place] [address], [address] [place] [address] PCP - General Internal Medicine 11/05/21 Lamine Navarro MD [address] [place] [address] Gastroenterology 11/05/21 Iain Hicks MD [address] [place] [address], [address] [address] Ophthalmology 07/01/22 Meliton Agudelo MD [address] [place] [address], [address] [place] [address] Insurance Assigned Provider 09/27/23 Larry Anderson MD [address] [place] [address] Otolaryngology 11/10/23 documented as of this encounter Additional Source Comments The information contained in this document represents components of the legal health record. It is not the complete legal health record.[facility]
--- OUTSIDE RECORDS SUMMARY | 2025-02-23 16:21 | XMS_ITS | Encounter Summary ---
Author Organization [facility] Address [address] [facility] [address] [place] [address] Phone Care Team Providers Care Batch Blender Name Role Phone Meliton Agudelo MD Primary Care Provider [phone]- [phone] Lamine Navarro MD Unavailable [phone] Iain Hicks MD Unavailable [phone] Meliton Agudelo MD Unavailable [phone] Larry Anderson MD Unavailable Encounter Details Date Type Department Care Team (Late st Contact Info) Description 08/25/2023 Ancillary Orders [facility] 30 [place], [place] [id number] Meliton Agudelo MD 22 [facility], [address] [place] [address] [email or web address] Abnormal finding on mammography (Primary [...] high school, GED, job training, learning the [place] Citizen language, technical skills, or developing parenting skills)? 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, [address] [place] [address] documented as of this encounter Results * [...] documented as of this encounter Care Teams Batch Blender Relationship Specialty Start Date End Date Meliton Agudelo MD [address] [place] [address], [address] [place] [address] PCP - General Internal Medicine 11/05/21 Lamine Navarro MD [address] [place] [address] Gastroenterology 11/05/21 Iain Hicks MD [address] [place] [address], [address] [address] Ophthalmology 07/01/22 Meliton Agudelo MD [address] [place] [address], [address] [place] [address] [email or web address] Insurance Assigned Provider 09/27/23 Laryr Anderson MD [address] [place] [address] [place] [address] Otolaryngology 11/10/23 documented as of this encounter Additional Source Comments The information contained in this document represents components of the legal health record. It is not the complete legal health record.[facility]
== END 2025-02-23 14:11 | disposition home or self-care (01) ==
LOC: HO.HMGAL 14:05
PROVIDERS: PCP Internal Medicine; Visit Provider Registered Nurse Emergency
DX: J30.89 Other allergic rhinitis (principal)
CPT/HCPCS: 95117; 95165

== ENCOUNTER 2025-03-14 10:17 | Outpatient (AMB) | payer MEDICARE, OTHER, SELFPAY ==
--- OUTSIDE RECORDS SUMMARY | 2025-03-14 12:37 | XMS_ITS | Encounter Summary ---
Author Organization [facility] Address [address] [facility] [address] [place] [address] Phone Care Team Providers Care Filter Washer And Presser Name Role Phone Meliton Agudelo MD Primary Care Provider [phone] Lamine Navarro MD Unavailable [phone] Iain Hicks MD Unavailable Meliton Agudelo MD Unavailable [phone] Larry Anderson MD Unavailable [phone] Encounter Details Date Type Department Care Team (Late st Contact Info) Description 03/19/2022 Procedure Pass [facility], [facility] 30 [place] [address] Social History Tobacco Use Types Packs/Day Years [...] high school, GED, job training, learning the French language, technical skills, or developing parenting skills)? 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 documented as of this encounter Plan of Treatment Upcoming Encounters Date Type Department Care Team (Late st Contact Info) Description 11/15/2025 8:30 AM EDT Office Visit [facility] [place] [facility] [address] [place] [address] Meliton Agudelo MD [address] [place] [address], [address] [place] [address] documented as of this encounter Visit Diagnoses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documented in this encounter Additional Health Concerns Infection Onset Date Last Indicated Resolved Time COVID-19 05/05/2023 05/05/2023 05/26/2023 1:21 AM EST Assessment Noted Time PHQ-2 Depression Total Score: 0 11/06/19 9:20 AM EDT documented as of this encounter Care Teams Filter Washer And Presser Relationship Specialty Start Date End Date Meliton Agudelo MD [address] [place] [address], [address] [place] [address] PCP - General Internal Medicine 11/05/21 Lamine Navarro MD [address] [place] [address] Gastroenterology 11/05/21 Iain Hicks MD [address] [place] [address], [address] [place], [place] [address] Ophthalmology 07/01/22 Meliton Agudelo MD [address] [place] [address], [address] [place] [address] [email or web address] Insurance Assigned Provider 09/27/23 Larry Anderson MD [address] [place] [address] 106 [place] [address] Otolaryngology 11/10/23 documented as of this encounter Additional Source Comments The information contained in this document represents components of the legal health record. It is not the complete legal health record.[facility]
--- OUTSIDE RECORDS SUMMARY | 2025-03-14 12:37 | XMS_ITS | Encounter Summary ---
Author Organization [facility] Address [address] [facility] [address] [place] [address] Phone Care Team Providers Care Mess Cook Name Role Phone Som Adkins MD Primary Care Provider Meliton Agudelo MD Primary Care Provider [phone] Lamine Navarro MD Unavailable [phone] Iain Hicks MD Unavailable [phone] Meliton Agudelo MD Unavailable [phone] Larry Anderson MD Unavailable Encounter Details Date Type Department Care Team (Late st Contact Info) Description 03/01/2019 Ancillary Orders Virtual Department 30 [place] [address] Som Adkins MD 264 [facility] [address] [place] [address] [email or web address] Social History Tobacco Use Types [...] 8:30 AM EDT Office Visit [facility] [address] [place] [address] Meliton Agudelo MD [address] [place] [address], [address] [place] [address] [email or web address] documented as of this encounter Results * [...] documented as of this encounter Care Teams Mess Cook Relationship Specialty Start Date End Date Som Adkins MD [address] [place] [address] [address] [place] [address] [email or web address] PCP - General Internal Medicine 05/26/17 11/04/21 Meliton Agudelo MD [address] [place] [address], [address] [place] [address] PCP - General Internal Medicine 11/05/21 Lamine Navarro MD [address] [place] [address] Gastroenterology 11/05/21 Iain Hicks MD [address] [place] [address], [address] [address] Ophthalmology 07/01/22 Meliton Agudelo MD [address] [place] [address], [address] [place] [address] Insurance Assigned Provider 09/27/23 Larry Anderson MD [address] [place] [address] Otolaryngology 11/10/23 documented as of this encounter Additional Source Comments The information contained in this document represents components of the legal health record. It is not the complete legal health record.[facility]
--- OUTSIDE RECORDS SUMMARY | 2025-03-14 12:38 | XMS_ITS | Encounter Summary ---
Author Organization [facility] Address [address] [facility] [address] [place] [address] Phone Care Team Providers Care Last Repairer Helper Name Role Phone Meliton Agudelo MD Primary Care Provider [phone] Lamine Navarro MD Unavailable [phone] Iain Hicks MD Unavailable [phone] Meliton Agudelo MD Unavailable [phone] Larry Anderson MD Unavailable Encounter Details Date Type Department Care Team (Late st Contact Info) Description 08/25/2023 Ancillary Orders [facility] 30 [place], [place] [phone] Meliton Agudelo MD 22 [facility], [address] [place] [address] [email or web address] Abnormal finding on mammography (Primary [...] high school, GED, job training, learning the [place] language, technical skills, or developing parenting skills)? 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 documented as of this encounter Plan of Treatment Upcoming Encounters Date Type Department Care Team (Late st Contact Info) Description 11/15/2025 8:30 AM EDT Office Visit [facility] [place] [facility] [address] [place] [address] [place] [address] Meliton Agudelo MD 22 [facility], [address] [place] [address] documented as of this encounter Results * [...] documented as of this encounter Care Teams Last Repairer Helper Relationship Specialty Start Date End Date Meliton Agudelo MD [address] [place] [address], [address] [place] [address] PCP - General Internal Medicine 11/05/21 Lamine Navarro MD [address] [place] [address] Gastroenterology 11/05/21 Iain Hicks MD [address] [place] [address], [address] [address] Ophthalmology 07/01/22 Meliton Agudelo MD [address] [place] [address], [address] [place] [address] [email or web address] Insurance Assigned Provider 09/27/23 Larry Anderson MD [address] [place] [address] [place] [address] Otolaryngology 11/10/23 documented as of this encounter Additional Source Comments The information contained in this document represents components of the legal health record. It is not the complete legal health record.[facility]
--- OUTSIDE RECORDS SUMMARY | 2025-03-14 12:38 | XMS_ITS | Encounter Summary ---
Author Organization [facility] Address [address] [facility] [address] [place] [address] Phone Care Team Providers Care Disability Examiner Name Role Phone Som Adkins MD Primary Care Provider Meliton Agudelo MD Primary Care Provider [phone] Lamine Navarro MD Unavailable [phone] Iain Hicks MD Unavailable [phone] Meliton Agudelo MD Unavailable [phone] Larry Anderson MD Unavailable Encounter Details Date Type Department Care Team (Late st Contact Info) Description 05/20/2020 Procedure Pass [facility] [address] [place] [address] Social History Tobacco Use Types Packs/Day Years [...] 11/15/2025 8:30 AM EDT Office Visit [facility] [address] [place] [address] [place] [address] Meliton Agudelo MD 22 [facility], [address] [place] [address] documented as of this encounter Visit Diagnoses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documented in this encounter Additional Health Concerns Infection Onset Date Last Indicated Resolved Time CoV-Risk 01/22/2021 01/22/2021 02/01/2021 1:45 AM EDT COVID-19 05/05/2023 05/05/2023 05/26/2023 1:21 AM EST documented as of this encounter Care Teams Disability Examiner Relationship Specialty Start Date End Date Som Adkins MD [address] [place] [address] & [address] [place] [address] [email or web address] PCP - General Internal Medicine 05/26/17 11/04/21 Meliton Agudelo MD [address] [place] [address], [address] [place] [address] [email or web address] PCP - General Internal Medicine 11/05/21 Lamine Navarro MD [address] [place] [address] Gastroenterology 11/05/21 Iain Hicks MD [address] [place] [address] Ophthalmology 07/01/22 Meliton Agudelo MD [address] [place] [address], [address] [place] [address] [email or web address] Insurance Assigned Provider 09/27/23 Larry Anderson MD [address] [place] [address] Otolaryngology 11/10/23 documented as of this encounter Additional Source Comments The information contained in this document represents components of the legal health record. It is not the complete legal health record.[facility]
--- OUTSIDE RECORDS SUMMARY | 2025-03-14 12:38 | XMS_ITS | Encounter Summary ---
Author Organization [facility] Address [address] [facility] [address] [place] [address] Phone Care Team Providers Care Sample Collector Name Role Phone Som Adkins MD Primary Care Provider [phone] Meliton Agudelo MD Primary Care Provider [phone] Lamine Navarro MD Unavailable [phone] Iain Hicks MD Unavailable [phone] Meliton Agudelo MD Unavailable [phone] Larry Anderson MD Unavailable Encounter Details Date Type Department Care Team (Latest Contact Info) Description 07/31/2017 Transcribe Orders [address] [address] Som Adkins MD 264 [facility] [address] [place] [address] [email or web address] Routine medical exam (Primary Dx); High [...] 11/15/2025 8:30 AM EDT Office Visit [facility] [address] [place] [address] Meliton Agudelo MD [address] [place] [address], [address] [place] [address] [email or web address] documented as of this encounter Results * CBC and differential (07/31/2017 7:56 AM EST) WBC 5.60 3.40 - 11.20 K/uL [facility] RBC 4.57 3.80 - 4.80 M/uL [facility] HGB 13.8 12.0 - 15.0 g/dL [facility] HCT 42.1 36.0 - 46.0 % [facility] PLT 293 130 - 400 K/uL [facility] MCV 92.1 79.0 - 98.0 fL [facility] MCH 30.2 27.0 - 34.8 pg [facility] MCHC 32.8 31.5 - 36.0 g/dL [facility] RDW 12.7 10.8 - 14.6 % [facility] MPV 10.6 9.4 - 12.4 fl [facility] NRBC 0.00 /100 WBCs [facility] ABSOLUTE NRBC 0.00 K/uL [facility] DIFF METHOD Auto [facility] NEUTS 52.8 45.30 - 77.70 % [facility] LYMPHS 32.5 12.30 - 39.70 % [facility] MONOS 9.5 4.10 - 12.80 % [facility] EOS 3.9 0 - 7.2 % [facility] BASOS 1.1 0 - 2.80 % [facility] Granulocytes, immature (%) 0.2 0.0 - 0.9 % [facility] ABSOLUTE NEUTS 2.96 1.40 - 7.70 K/uL [facility] ABSOLUTE LYMPHS 1.82 0.60 - 3.20 K/uL [facility] ABSOLUTE MONOS 0.53 0.11 - 0.59 K/uL [facility] ABSOLUTE EOS 0.22 0.01 - 0.50 K/uL [facility] ABSOLUTE BASOS 0.06 0.00 - 0.08 K/uL [facility] Granulocytes, immature 0.01 0.00 - 0.05 K/uL [facility] Blood 07/31/2017 7:56 AM EST 07/31/2017 8:01 AM EST Som Adkins MD LAB BLOOD ORDERABLES Final Resu lt Performing Organization Address [facility] Co de Phone Number [address] [address] * TSH (07/31/2017 7:56 AM EST) TSH 3.24 0.27 - 4.20 uIU/mL [facility] Blood 07/31/2017 7:56 AM EST 07/31/2017 8:01 AM EST Som Adkins MD LAB BLOOD ORDERABLES Final Resu lt Performing Organization Address [facility] Co de Phone Number [address] [address] * (ABNORMAL) Lipid panel (07/31/2017 7:56 AM EST) HDL 76 mg/dL [facility] Comment: Interpretation: Risk Level Females Decreased >55mg/dL Average 50-55 mg/dL Increased <50 mg/dL CHOLESTEROL 210 0 - 240 mg/dL [facility] TRIGLYCERIDES 43 30 - 160 mg/dL [facility] LDL 125 50 - 129 mg/dL [facility] Comment: LDL levels in terms of risk for coronary heart disease: <100 mg/dL: Optimal 100-129 mg/dL: Near or above optimal 130-159 mg/dL: Borderline high 160-189 mg/dL: High >190 mg/dL: Very High CARDIAC RISK RATIO 2.8(L) 3.3 - 4.4 C [facility] Blood 07/31/2017 7:56 AM EST 07/31/2017 8:01 AM EST Som Adkins MD LAB BLOOD ORDERABLES Final Resu lt Performing Organization Address [facility] Co de Phone Number [address] [address] * Comprehensive metabolic panel (07/31/2017 7:56 AM EST) SODIUM 142 133 - 146 mmol/L [facility] POTASSIUM 4.6 3.3 - 5.1 mmol/L [facility] CHLORIDE 102 96 - 108 mmol/L [facility] CO2 30 21 - 35 mmol/L [facility] BUN 15 6 - 19 mg/dL [facility] CREATININE 0.70 0.5 - 1.5 mg/dL [facility] GLUCOSE 80 70 - 99 mg/dL [facility] ALBUMIN 4.3 3.9 - 4.8 g/dL [facility] TOTAL PROTEIN 7.1 6.5 - 8.0 g/dL [facility] CALCIUM 9.4 8.4 - 10.3 mg/dL [facility] ALKALINE PHOSPHATASE 65 39 - 117 U/L [facility] TOTAL BILIRUBIN 0.6 0 - 1.2 mg/dL [facility] AST 25 0 - 37 U/L [facility] ALT 11 0 - 40 U/L [facility] GLOBULIN 2.8 1 - 4.8 g/dL [facility] EGFR >60 mL/min/1.7 3m2 [facility] Comment:Abnormal if <60. If patient is -Senegalese, multiply the result by 1.21. ANION GAP 15 10 - 20 mmol/L [facility] Blood 07/31/2017 7:56 AM EST 07/31/2017 8:01 AM EST us Som Adkins MD LAB BLOOD ORDERABLES Final Resu lt [address] [address] documented in this encounter Visit Diagnoses Diagnosis Routine medical exam- Primary Routine general medical examination at a health care facility High cholesterol Pure hypercholesterolemia Fatigue, unspecified type documented in this encounter Additional Health Concerns Infection Onset Date Last Indicated Resolved Time CoV-Risk 01/22/2021 01/22/2021 02/01/2021 1:45 AM EDT COVID-19 05/05/2023 05/05/2023 05/26/2023 1:21 AM EST documented as of this encounter Care Teams Sample Collector Relationship Specialty Start Date End Date JedSom MD [address] [place] [address] [address] [place] [address] [email or web address] PCP - General Internal Medicine 05/26/17 11/04/21 Meliton Agudelo MD [address] [place] [address], [address] [place] [address] PCP - General Internal Medicine 11/05/21 Lamine Navarro MD [address] [place] [address] Gastroenterology 11/05/21 Iain Hicks MD [address] [place] [address] Ophthalmology 07/01/22 Meliton Agudelo MD [address] [place] [address], [address] [place] [address] Insurance Assigned Provider 09/27/23 Larry Anderson MD [address] [place] [address] Otolaryngology 11/10/23 documented as of this encounter Additional Source Comments The information contained in this document represents components of the legal health record. It is not the complete legal health record.[facility]
--- OUTSIDE RECORDS SUMMARY | 2025-03-14 12:38 | XMS_ITS | Encounter Summary ---
Author Organization [facility] Address 399 [facility] [address] [place] [address] Phone Care Team Providers Care Blue Line Trimmer Name Role Phone Som Adkins MD Primary Care Provider [phone] Meliton Agudelo MD Primary Care Provider [phone] Lamine Navarro MD Unavailable [phone] Iain Hicks MD Unavailable [phone] Meliton Agudelo MD Unavailable Larry Anderson MD Unavailable Encounter Details Date Type Department Care Team (Late st Contact Info) Description 04/12/2017 Ancillary Orders [facility] [address] [place] [address] [place] [address] Ken Bingham MD [address] [place] [address] Social History Tobacco Use Types Packs/Day Years [...] EDT Office Visit [facility] [place] [facility] [address] [place] [address] [place] [address] Meliton Agudelo MD 22 [facility], [address] [place] [address] [email or web address] documented as of this encounter Visit Diagnoses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documented in this encounter Additional Health Concerns Infection Onset Date Last Indicated Resolved Time CoV-Risk 01/22/2021 01/22/2021 02/01/2021 1:45 AM EDT COVID-19 05/05/2023 05/05/2023 05/26/2023 1:21 AM EST documented as of this encounter Care Teams Blue Line Trimmer Relationship Specialty Start Date End Date JedSom MD [address] [place] [address] 10 [address] [place] [address] [email or web address] PCP - General Internal Medicine 05/26/17 11/04/21 Meliton Agudelo MD [address] [place] [address], [address] [place] [address] [email or web address] PCP - General Internal Medicine 11/05/21 Lamine Navarro MD [address] [place] [address] Gastroenterology 11/05/21 Iain Hicks MD [address] [place] [address] [email or web address] Ophthalmology 07/01/22 Meliton Agudelo MD [address] [place] [address], [address] [place] [address] Insurance Assigned Provider 09/27/23 Larry Anderson MD [address] [place] [address] Otolaryngology 11/10/23 documented as of this encounter Additional Source Comments The information contained in this document represents components of the legal health record. It is not the complete legal health record.[facility]
--- OUTSIDE RECORDS SUMMARY | 2025-03-14 12:38 | XMS_ITS | Clinical Summary ---
Author Organization [facility] Address [address] [address] Phone Care Team Providers Care Hog Stomach Preparer Name Role Phone Meliton Agudelo MD Primary Care Provider [phone] Lamine Navarro MD Unavailable Iain Hicks MD Unavailable Meliton Agudelo MD Unavailable Larry Anderson MD Unavailable [phone] Allergies Active Allergy Reactions Criticality Noted Date [...] to plan. She has follow up with [employer] [employer] in early June. 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 Medicine [address] [place] [address] Meliton Agudelo MD 22 [facility], [address] [place] [address] [email or web address] Health Maintenance Due Date Last Done Comments [...] (10/30/2022 8:37 AM EDT) HDL 69 mg/dL [facility] Comment: Interpretation <40 mg/dL: Low HDL cholesterol (major risk factor for CHD) Greater than or equal to 60 mg/dL: High HDL cholesterol ( negative risk factor for CHD) HDL - cholesterol is affected by a number of factors, e.g. smoking, excerise, hormones, sex and age. CHOLESTEROL 195 0 - 240 mg/dL [facility] TRIGLYCERIDES 40 30 - 160 mg/dL [facility] LDL 118 50 - 129 mg/dL [facility] Comment: LDL levels in terms of risk for coronary heart disease: <100 mg/dL: Optimal 100-129 mg/dL: Near or above optimal 130-159 mg/dL: Borderline high 160-189 mg/dL: High >190 mg/dL: Very High CARDIAC RISK RATIO 2.8(L) 3.3 - 4.4 [facility] 10/30/2022 8:37 AM EDT 10/30/2022 8:42 AM EDT us Meliton Agudelo MD LAB BLOOD ORDERABLES Final Result [facility] [address] [place] [address] from Last 3 Months or Most Recently Relevant to Health Maintenance Insurance MEDICARE PART A & B [employer] MEDICARE SUPPLEMENT MEDICARE PART A & B [employer] MEDICARE SUPPLEMENT MEDICARE PART A & B [facility] MEDICARE SUPPLEMENT MEDICARE PART A & B [facility] MEDICARE SUPPLEMENT MEDICARE PART A & B [facility] MEDICARE SUPPLEMENT MEDICARE PART A & B Member Subscriber Plan / Payer ( fective 2014-Present) Name:Dolores Tamara Member ID:[id number] Relation to Subscriber:Self Name:Tamara Bernal Subscriber ID:[id number] Payer ID:[id number] Group ID:Not on file Type:Medicare Address: [employer] [address] [place] [address] [place] [address] MEDICARE SUPPLEMENT MEDICARE PART A & B [facility] MEDICARE SUPPLEMENT MEDICARE PART A & B [employer] MEDICARE SUPPLEMENT MEDICARE PART A & B [employer] MEDICARE SUPPLEMENT Care Teams Hog Stomach Preparer Relationship Specialty Start Date End Date Meliton Agudelo MD [address] [place] [address], [address] [place] [address] PCP - General Internal Medicine 11/05/21 Lamine Navarro MD [address] [place] [address] Gastroenterology 11/05/21 Iain Hicks MD [address] [place] [address], [address] [address] [email or web address] Ophthalmology 07/01/22 Meliton Agudelo MD [address] [place] [address], [address] [place] [address] Insurance Assigned Provider 09/27/23 Larry Anderson MD [address] [place] [address] Otolaryngology 11/10/23 Additional Source Comments The information contained in this document represents components of the legal health record. It is not the complete legal health record.[facility]
--- OUTSIDE RECORDS SUMMARY | 2025-03-14 12:38 | XMS_ITS | Encounter Summary ---
Author Organization [facility] Address [address] [address] Phone Care Team Providers Care Immigration Law Specialist Name Role Phone Som Adkins MD Primary Care Provider [phone] Meliton Agudelo MD Primary Care Provider [phone] Lamine Navarro MD Unavailable [phone] Iain Hicks MD Unavailable [phone] Meliton Agudelo MD Unavailable [phone] Larry nAderson MD Unavailable [phone] Reason for Referral * Physical Therapy (Routine) - Closed Specialty Diagnoses / Procedures Referred By Geoff lee Referred To Contact Physical Therapy Diagnoses Encounter for rehabilitation Som Adkins MD Phone: tel: fax: [email or web address] [address] [place] [address] Phone: tel: Referral ID Status Reason Start Date Expiration Date Visits Re quested Visits Authorized [id number] Closed 11/25/2017 06/22/2018 99 99 Encounter Details Date Type Department Care Team (Latest Contact Info) Description 11/04/2017 Transcribe Orders [facility] [address] [place] [address] Som Adkins MD [address] [place] [address] [address] [email or web address] Encounter for rehabilitation (Primary Dx) Social History [...] Description 11/15/2025 8:30 AM EDT Office Visit [address] [address] Meliton Agudelo MD [address] [place] [address], [address] [place] [address] [email or web address] Scheduled Referrals Name Type Priority Associated Diagnoses Orde r Schedule Ambulatory referral to [facility] Physical Therapy Outpatient Referral Routine Encounter for rehabilitation Ordered: 11/04/2017 documented as of this encounter Visit Diagnoses Diagnosis Encounter for rehabilitation- Primary documented in this encounter Additional Health Concerns Infection Onset Date Last Indicated Resolved Time CoV-Risk 01/22/2021 01/22/2021 02/01/2021 1:45 AM EDT COVID-19 05/05/2023 05/05/2023 05/26/2023 1:21 AM EST documented as of this encounter Care Teams Immigration Law Specialist Relationship Specialty Start Date End Date Jed, Som Beaver MD [address] [place] [address] [email or web address] PCP - General Internal Medicine 05/26/17 11/04/21 Meliton Agudelo MD [address] [place] [address], [address] [place] [address] [email or web address] PCP - General Internal Medicine 11/05/21 Lamine Navarro MD [address] [place] [address] Gastroenterology 11/05/21 Iain Hicks MD [address] [place] [address], [address] [place] [address] Ophthalmology 07/01/22 Meliton Agudelo MD [address] [place] [address], [address] [place] [address] Insurance Assigned Provider 09/27/23 Larry Anderson MD [address] [place] [address] Otolaryngology 11/10/23 documented as of this encounter Additional Source Comments The information contained in this document represents components of the legal health record. It is not the complete legal health record.[facility]
--- OUTSIDE RECORDS SUMMARY | 2025-03-14 12:38 | XMS_ITS | Encounter Summary ---
Author Organization [facility] Address 399 [facility] [address] [place] [address] Phone Care Team Providers Care Commercial Illustrator Name Role Phone Som Adkins MD Primary Care Provider Meliton Agudelo MD Primary Care Provider [phone] Lamine Navarro MD Unavailable [phone] Iain Hicks MD Unavailable [phone] Meliton Agudelo MD Unavailable [phone] Larry Anderson MD Unavailable Encounter Details Date Type Department Care Team (Late st Contact Info) Description 03/06/2020 Procedure Pass [address] [address] Social History Tobacco Use Types Packs/Day Years [...] Description 11/15/2025 8:30 AM EDT Office Visit [facility] [address] [place] [address] [place] [address] Meliton Agudelo MD 22 [facility], [address] [place] [address] documented as of this encounter Visit Diagnoses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documented in this encounter Additional Health Concerns Infection Onset Date Last Indicated Resolved Time CoV-Risk 01/22/2021 01/22/2021 02/01/2021 1:45 AM EDT COVID-19 05/05/2023 05/05/2023 05/26/2023 1:21 AM EST documented as of this encounter Care Teams Commercial Illustrator Relationship Specialty Start Date End Date JedSom MD [address] [place] [address] [address] [place] [address] [email or web address] PCP - General Internal Medicine 05/26/17 11/04/21 Meliton Agudelo MD [address] [place] [address], [address] [place] [address] [email or web address] PCP - General Internal Medicine 11/05/21 Lamine Navarro MD [address] [place] [address] Gastroenterology 11/05/21 Iain Hicks MD [address] [place] [address] [email or web address] Ophthalmology 07/01/22 Meliton Agudelo MD [address] [place] [address], [address] [place] [address] [email or web address] Insurance Assigned Provider 09/27/23 Larry Anderson MD [address] [place] [address] Otolaryngology 11/10/23 documented as of this encounter Additional Source Comments The information contained in this document represents components of the legal health record. It is not the complete legal health record.[facility]
--- OUTSIDE RECORDS SUMMARY | 2025-03-14 12:38 | XMS_ITS | Encounter Summary ---
Author Organization [facility] Address 399 [facility] [address] [place] [address] Phone Care Team Providers Care Reinforcing Steel Worker Wire Mesh Name Role Phone Meliton Agudelo MD Primary Care Provider [phone] Lamine Navarro MD Unavailable [phone] Iain Hicks MD Unavailable [phone] Meliton Agudelo MD Unavailable [phone] Larry Anderson MD Unavailable Encounter Details Date Type Department Care Team (Latest Contact Info) Description 04/09/2023 Transcribe Orders Virtual Department [address] [place], [place] [address] Meliton Agudelo MD 22 [facility], [address] [place] [address] [email or web address] Encounter for screening mammogram for [...] high school, GED, job training, learning the Romanian language, technical skills, or developing parenting skills)? 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 documented as of this encounter Plan of Treatment Upcoming Encounters Date Type Department Care Team (Late st Contact Info) Description 11/15/2025 8:30 AM EDT Office Visit [facility] [address] [place] [address] Meliton Agudelo MD 22 [facility], [address] [place] [address] documented as of this encounter Results * [...] documented as of this encounter Care Teams Reinforcing Steel Worker Wire Mesh Relationship Specialty Start Date End Date Meliton Agudelo MD [address] [place] [address], [address] [place] [address] PCP - General Internal Medicine 11/05/21 Lamine Navarro MD [address] [place] [address] Gastroenterology 11/05/21 Iain Hicks MD [address] [place] [address], [address] [place], [place] [address] [email or web address] Ophthalmology 07/01/22 Meliton Agudelo MD [address] [place] [address], [address] [place] [address] [email or web address] Insurance Assigned Provider 09/27/23 Larry Anderson MD [address] [place] [address] [place] [address] Otolaryngology 11/10/23 documented as of this encounter Additional Source Comments The information contained in this document represents components of the legal health record. It is not the complete legal health record.[facility]
--- OUTSIDE RECORDS SUMMARY | 2025-03-14 12:38 | XMS_ITS | Encounter Summary ---
Author Organization [facility] Address 399 [facility] [address] [place] [address] Phone Care Team Providers Care Commercial Glazier Name Role Phone Som Adkins MD Primary Care Provider [phone] Meliton Agudelo MD Primary Care Provider [phone] Lamine Navarro MD Unavailable [phone] Iain Hicks MD Unavailable [phone] Meliton Agudelo MD Unavailable Larry Anderson MD Unavailable Encounter Details Date Type Department Care Team (Late st Contact Info) Description 03/06/2020 Ancillary Orders Virtual Department 30 [place] [address] Som Adkins MD 264 [facility] [address] [place] [address] [email or web address] Breast screening Social History Tobacco Use [...] 8:30 AM EDT Office Visit [facility] [address] [place] [address] Meliton Agudelo MD 22 [facility], [address] [place] [address] [email or web address] documented as of this encounter Results * [...] as of this encounter Care Teams Commercial Glazier Relationship Specialty Start Date End Date Som Adkins MD [address] [place] [address] [address] [place] [address] [email or web address] PCP - General Internal Medicine 05/26/17 11/04/21 Meliton Agudelo MD [address] [place] [address] [email or web address] PCP - General Internal Medicine 11/05/21 Lamine Navarro MD [address] [place] [address] Gastroenterology 11/05/21 Iain Hicks MD [address] [place] [address] [email or web address] Ophthalmology 07/01/22 Meliton Agudelo MD [address] [place] [address] [email or web address] Insurance Assigned Provider 09/27/23 Larry Anderson MD [address] [place] [address] Otolaryngology 11/10/23 documented as of this encounter Additional Source Comments The information contained in this document represents components of the legal health record. It is not the complete legal health record.[facility]
--- OUTSIDE RECORDS SUMMARY | 2025-03-14 12:38 | XMS_ITS | Clinical Summary ---
Author Organization [facility] 299 [facility] Address [address] [place] [address] Phone Care Team Providers Care Wireless Team Member Name Role Phone Meliton Agudelo MD Primary Care Provider [phone] Allergies Active Allergy Reactions Criticality Noted Date Comments Azithromycin Nausea And Vomiting 04/20/2018 Erythromycin 08/26/2024 Levofloxacin 08/26/2024 Sulfamethoxazole-Trimethoprim 2024 Medications multivitamin-mi g-yieg-JS-vit K 45 mg iron- 800 mcg-120 mcg [...] Noted Date Diagnosed Date SVT (supraventricular tachycardia) (CMS/[facility] V24) 08/26/2024 Irritable bowel syndrome [...] Recently Relevant to Health Maintenance Insurance MEDICARE [facility] Care Teams Wireless Team Member Relationship Specialty Start Date End Date Meliton Agudelo MD [address] [place] [address], [address] [place] [address] PCP - General Internal Medicine 08/26/24
--- OUTSIDE RECORDS SUMMARY | 2025-03-14 12:38 | XMS_ITS | Patient Health Record ---
Author [facility] Address [address] [place] [address] Care Team Providers Care Organic Extractions Technician Name Role Phone Magnus WATSON, Meliton Primary Care Provider Ra Curtis Unavailable [phone] Allergies Allergen (clinical drug ingredient) Drug/Non Drug [...] a day; Duration: 30 day(s) Active Nystatin 036673 UNIT 1 tablet Orally every 8 hrs; [...] Route Administration Date Status Comme nts COVID-19 ethology [employer] Vaccine Unknown 10/30/2021 Administered 1st 07/11/2020 [...] Status Risk Notes Problem Acquired hallux rigidus (9351192) Hallux rigidus, left foot (M20.22) Active confirmed Problem Acquired hallux rigidus (8571937) Hallux rigidus, right foot (M20.21) Active confirmed Plan Of Treatment Pending Test Test Name Order Date X ray : Foot, right 3V 03/15/2019 Insurance Providers Payer Name Payer Address Payer Phone Subscriber Number Group Number Insured Name Patient Relationship to Insured Coverage Start Date Coverage End Date Medicare National Govt S[employer] [address] [place] [address] [id number] Tamara Bernal Self - patient is the insured [facility] [address] [place] [address] [phone] [id number] Tamara Bernal Self - patient is the insured Medical (General) History Medical History History ICD Code Measles Mumps Supraventricular tachycardia Surgical History Surgery Date(Month/Year) appendectomy ovarian surgery- right removed eye surgery-Blocked tear duct right eye 02/08/2019 eye surgery- blocked tear duct-right eye 03/24/2019
--- OUTSIDE RECORDS SUMMARY | 2025-03-14 12:38 | XMS_ITS | Encounter Summary ---
Author Organization [facility] Address 399 [facility] [address] [place] [address] Phone Care Team Providers Care Book Retailer Name Role Phone Som Adkins MD Primary Care Provider [phone] Deidra Agudelo MD Primary Care Provider [phone] Lamine Navarro MD Unavailable [phone] Iain Hicks MD Unavailable [phone] Deidra Agudelo MD Unavailable [phone] Larry Anderson MD Unavailable Encounter Details Date Type Department Care Team (Late st Contact Info) Description 04/12/2017 Ancillary Orders [facility] [address] [place] [address] Ken Bingham MD [address] [place] [address] Visit for screening mammogram Social History Tobacco [...] Description 11/15/2025 8:30 AM EDT Office Visit [address] [place] [address] Deidra Agudelo MD 22 [facility], [address] [place] [address] [email or web address] documented as of this encounter Results * [...] lowers the sensitivity of mammography. POS - [id number] Narrative 05/26/2017 7:56 AM EST 71-year-old female [...] whichlowers the sensitivity of mammography. POS - [id number] Ken Bingham MD IMG MG EXAMS Final Result documented in this encounter Visit Diagnoses Diagnosis Visit for screening mammogram Visit for screening mammogram documented in this encounter Additional Health Concerns Infection Onset Date Last Indicated Resolved Time CoV-Risk 01/22/2021 01/22/2021 02/01/2021 1:45 AM EDT COVID-19 05/05/2023 05/05/2023 05/26/2023 1:21 AM EST documented as of this encounter Care Teams Book Retailer Relationship Specialty Start Date End Date Jed, Som Beaver MD [address] [place] [address] [address] [place] [address] [email or web address] PCP - General Internal Medicine 05/26/17 11/04/21 Deidra Agudelo MD [address] [place] [address] [address] [place] [address] [email or web address] PCP - General Internal Medicine 11/05/21 Lamine Navarro MD [address] [place] [address] Gastroenterology 11/05/21 Iain Hicks MD [address] [place] [address] [email or web address] Ophthalmology 07/01/22 Deidra Agudelo MD [address] [place] [address], [address] [place] [address] [email or web address] Insurance Assigned Provider 09/27/23 Larry Anderson MD [address] [place] [address] Otolaryngology 11/10/23 documented as of this encounter Additional Source Comments The information contained in this document represents components of the legal health record. It is not the complete legal health record.[facility]
--- OUTSIDE RECORDS SUMMARY | 2025-03-14 12:38 | XMS_ITS | Encounter Summary ---
Author Organization [facility] Address [address] [facility] [address] [place] [address] Phone Care Team Providers Care Appliance Adjuster Name Role Phone Meliton Agudelo MD Primary Care Provider [phone] Lamine Navarro MD Unavailable [phone] Iain Hicks MD Unavailable [phone] Meliton Agudelo MD Unavailable [phone] Larry Anderson MD Unavailable [phone] Encounter Details Date Type Department Care Team (Late st Contact Info) Description 08/25/2023 Procedure Pass [facility], [facility] [address] [place] [address] Social History Tobacco Use Types Packs/Day Years [...] high school, GED, job training, learning the [place]arag[place] language, technical skills, or developing parenting skills)? 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 documented as of this encounter Plan of Treatment Upcoming Encounters Date Type Department Care Team (Late st Contact Info) Description 11/15/2025 8:30 AM EDT Office Visit [facility] Family Medicine [address] [place] [address] [place] [address] Meliton Agudelo MD [address] [place] [address], [address] [place] [address] [email or web address] documented as of this encounter Visit Diagnoses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documented in this encounter Additional Health Concerns Assessment Noted Time PHQ-2 Depression Total Score: 0 11/05/19 23 9:02 AM EDT documented as of this encounter Care Teams Appliance Adjuster Relationship Specialty Start Date End Date Meliton Agudelo MD [address] [place] [address], [address] [place] [address] PCP - General Internal Medicine 11/05/21 Lamine Navarro MD [address] [place] [address] Gastroenterology 11/05/21 Iain Hicks MD [address] [place] [address], [address] [place] [address] [email or web address] Ophthalmology 07/01/22 Meliton Agudelo MD [address] [place] [address], [address] [place] [address] [email or web address] Insurance Assigned Provider 09/27/23 Larry Anderson MD [address] [place] [address] 106 [place] [address] Otolaryngology 11/10/23 documented as of this encounter Additional Source Comments The information contained in this document represents components of the legal health record. It is not the complete legal health record.[facility]
--- OUTSIDE RECORDS SUMMARY | 2025-03-14 12:38 | XMS_ITS | Encounter Summary ---
Author Organization [facility] Address [address] [facility] [address] [place] [address] Phone Care Team Providers Care Farmworker Grain Name Role Phone Meliton Agudelo MD Primary Care Provider [phone] Lamine Navarro MD Unavailable [phone] Iain Hicks MD Unavailable [phone] Meliton Agudelo MD Unavailable [phone] Larry Anderson MD Unavailable [phone] Encounter Details Date Type Department Care Team (Late st Contact Info) Description 04/12/2024 Procedure Pass [facility], [facility] [address] [place] [address] Social History Tobacco Use Types Packs/Day Years [...] 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, [employer]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 documented as of this encounter Plan of Treatment Upcoming Encounters Date Type Department Care Team (Late st Contact Info) Description 11/15/2025 8:30 AM EDT Office Visit [facility] [place] [facility] [address] [place] [address] Meliton Agudelo MD [address] [facility] [place], [address] [place] [address] documented as of this encounter Visit Diagnoses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documented in this encounter Additional Health Concerns Assessment Noted Time PHQ-2 Depression Total Score: 0 11/10/19 8:49 AM EDT documented as of this encounter Care Teams Farmworker Grain Relationship Specialty Start Date End Date Meliton Agudelo MD [address] [place] [address], [address] [place] [address] PCP - General Internal Medicine 11/05/21 Lamine Navarro MD [address] [place] [address] Gastroenterology 11/05/21 Iain Hicks MD [address] [place] [address], [address] [address] Ophthalmology 07/01/22 Meliton Agudelo MD [address] [place] [address], [address] [place] [address] Insurance Assigned Provider 09/27/23 Larry Anderson MD [address] [place] [address] Otolaryngology 11/10/23 documented as of this encounter Additional Source Comments The information contained in this document represents components of the legal health record. It is not the complete legal health record.[facility]
--- OUTSIDE RECORDS SUMMARY | 2025-03-14 12:38 | XMS_ITS | Encounter Summary ---
Author Organization [facility] Address [address] [facility] [address] [place] [address] Phone Care Team Providers Care Narrow Fabric Calenderer Name Role Phone Som Adkins MD Primary Care Provider Meliton Agudelo MD Primary Care Provider [phone] Lamine Navarro MD Unavailable [phone] Iain Hicks MD Unavailable [phone] Meliton Agudelo MD Unavailable [phone] Larry Anderson MD Unavailable Encounter Details Date Type Department Care Team (Late st Contact Info) Description 11/04/2017 Ancillary Orders Virtual Department 30 [place] [address] Som Adkins MD [address] [facility] [address] [place] [address] [email or web address] Breast screening; Trochanteric bursitis of left hip [...] Description 11/15/2025 8:30 AM EDT Office Visit [facility] [address] [place] [address] Meliton Agudelo MD [address] [place] [address], [address] [place] [address] [email or web address] documented as of this encounter Results * [...] lowers the sensitivity of mammography. POS - [id number] Narrative 05/27/2018 9:14 AM EST STUDY: Bilateral [...] whichlowers the sensitivity of mammography. POS - [id number] us Som Adkins MD IMG MG EXAMS [...] documented as of this encounter Care Teams Narrow Fabric Calenderer Relationship Specialty Start Date End Date JedSom MD [address] [place] [address] [address] [place] [address] [email or web address] PCP - General Internal Medicine 05/26/17 11/04/21 Meliton Agudelo MD [address] [place] [address], [address] [place] [address] PCP - General Internal Medicine 11/05/21 Lamine Navarro MD [address] [place] [address] Gastroenterology 11/05/21 Iain Hicks MD [address] [place] [address] Ophthalmology 07/01/22 Meliton Agudelo MD [address] [place] [address], [address] [place] [address] Insurance Assigned Provider 09/27/23 Larry Anderson MD [address] [place] [address] Otolaryngology 11/10/23 documented as of this encounter Additional Source Comments The information contained in this document represents components of the legal health record. It is not the complete legal health record.[facility]
--- OUTSIDE RECORDS SUMMARY | 2025-03-14 12:38 | XMS_ITS | Encounter Summary ---
Author Organization [facility] Address [address] [facility] [address] [place] [address] Phone Care Team Providers Care Cabin Cleaning Supervisor Name Role Phone Som Adkins MD Primary Care Provider Meliton Agudelo MD Primary Care Provider [phone] Lamine Navarro MD Unavailable [phone] Iain Hicks MD Unavailable [phone] Meliton Agudelo MD Unavailable [phone] Larry Anderson MD Unavailable Encounter Details Date Type Department Care Team (Late st Contact Info) Description 03/09/2021 Procedure Pass [address] [address] Social History Tobacco Use Types Packs/Day Years [...] Description 11/15/2025 8:30 AM EDT Office Visit [facility] Medicine [address] [place] [address] [place] [address] Meliton Agudelo MD [address] [facility] [place], [address] [place] [address] documented as of this encounter Visit Diagnoses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documented in this encounter Additional Health Concerns Infection Onset Date Last Indicated Resolved Time COVID-19 05/05/2023 05/05/2023 05/26/2023 1:21 AM EST documented as of this encounter Care Teams Cabin Cleaning Supervisor Relationship Specialty Start Date End Date JedSom MD [address] [place] [address] [address] [place] [address] [email or web address] PCP - General Internal Medicine 05/26/17 11/04/21 Meliton Agudelo MD [address] [place] [address], [address] [place] [address] PCP - General Internal Medicine 11/05/21 Lamine Navarro MD [address] [place] [address] Gastroenterology 11/05/21 Iain Hicks MD [address] [place] [address] Ophthalmology 07/01/22 Meliton Agudelo MD [address] [place] [address] [place] [address] Insurance Assigned Provider 09/27/23 Larry Anderson MD [address] [place] [address] Otolaryngology 11/10/23 documented as of this encounter Additional Source Comments The information contained in this document represents components of the legal health record. It is not the complete legal health record.[facility]
--- OUTSIDE RECORDS SUMMARY | 2025-03-14 12:38 | XMS_ITS | Encounter Summary ---
Author Organization [facility] Address [address] [facility] [address] [place] [address] Phone Care Team Providers Care Ear Specialist Name Role Phone Meliton Agudelo MD Primary Care Provider [phone] Lamine Navarro MD Unavailable [phone] Iain Hicks MD Unavailable [phone] Meliton Agudelo MD Unavailable [phone] Larry Anderson MD Unavailable [phone] Encounter Details Date Type Department Care Team (Late st Contact Info) Description 04/09/2023 Procedure Pass [facility], [facility] 30 [place] [address] Social History Tobacco Use Types Packs/Day Years [...] high school, GED, job training, learning the Salvadorean language, technical skills, or developing parenting skills)? 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 documented as of this encounter Plan of Treatment Upcoming Encounters Date Type Department Care Team (Late st Contact Info) Description 11/15/2025 8:30 AM EDT Office Visit [facility] Family Medicine [address] [place] [address] [place] [address] Meliton Agudelo MD [address] [place] [address], [address] [place] [address] [email or web address] documented as of this encounter Visit Diagnoses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documented in this encounter Additional Health Concerns Infection Onset Date Last Indicated Resolved Time COVID-19 05/05/2023 05/05/2023 05/26/2023 1:21 AM EST Assessment Noted Time PHQ-2 Depression Total Score: 0 11/05/19 9:02 AM EDT documented as of this encounter Care Teams Ear Specialist Relationship Specialty Start Date End Date Meliton Agudelo MD [address] [place] [address], [address] [place] [address] [email or web address] PCP - General Internal Medicine 11/05/21 Lamine Navarro MD [address] [place] [address] Gastroenterology 11/05/21 Iain Hicks MD [address] [place] [address], [address] [place] [address] [email or web address] Ophthalmology 07/01/22 Meliton Agudelo MD [address] [place] [address], [address] [place] [address] [email or web address] Insurance Assigned Provider 09/27/23 Larry Anderson MD [address] [place] [address] Otolaryngology 11/10/23 documented as of this encounter Additional Source Comments The information contained in this document represents components of the legal health record. It is not the complete legal health record.[facility]
== END 2025-03-14 10:18 | disposition home or self-care (01) ==
LOC: HO.HMGAL 10:17
PROVIDERS: PCP Internal Medicine; Visit Provider Registered Nurse Emergency
DX: J30.89 Other allergic rhinitis (principal)
CPT/HCPCS: 95117; 95165

== ENCOUNTER 2025-03-28 10:39 | Outpatient (AMB) | payer MEDICARE, OTHER, SELFPAY ==
--- OUTSIDE RECORDS SUMMARY | 2025-03-28 12:41 | XMS_ITS | Encounter Summary ---
Author Organization [facility] Address [address] [facility] [address] [place] [address] Phone Care Team Providers Care Crane Hoist Or Lift Operator Name Role Phone Som Adkins MD Primary Care Provider [phone] Meliton Agudelo MD Primary Care Provider [phone] Lamine Navarro MD Unavailable [phone] Iain Hicks MD Unavailable [phone] Meliton Agudelo MD Unavailable [phone] Larry Anderson MD Unavailable Encounter Details Date Type Department Care Team (Late st Contact Info) Description 03/01/2019 Ancillary Orders Virtual Department 30 [place] [address] Som Adkins MD 264 [facility] [address] [place] [address] [email or web address] Breast screening Social History Tobacco [...] AM EDT Office Visit [facility] [address] [place] [address] Meliton Agudelo MD [address] [place] [address], [address] [place] [address] [email or web address] documented as of this encounter Results * [...] documented as of this encounter Care Teams Crane Hoist Or Lift Operator Relationship Specialty Start Date End Date Som Adkins MD [address] [place] [address] [address] [place] [address] [email or web address] PCP - General Internal Medicine 05/26/17 11/04/21 Meliton Agudelo MD [address] [place] [address], [address] [place] [address] [email or web address] PCP - General Internal Medicine 11/05/21 Lamine Navarro MD [address] [place] [address] Gastroenterology 11/05/21 Iain Hicks MD [address] [place] [address], [address] [address] Ophthalmology 07/01/22 Meliton Agudelo MD [address] [place] [address], [address] [place] [address] [email or web address] Insurance Assigned Provider 09/27/23 Larry Anderson MD [address] [place] [address] Otolaryngology 11/10/23 documented as of this encounter Additional Source Comments The information contained in this document represents components of the legal health record. It is not the complete legal health record.[facility]
--- OUTSIDE RECORDS SUMMARY | 2025-03-28 12:41 | XMS_ITS | Encounter Summary ---
Author Organization [facility] Address [address] [facility] [address] [place] [address] Phone Care Team Providers Care Hydro Operator Name Role Phone Meliton Agudelo MD Primary Care Provider [phone] Lamine Navarro MD Unavailable [phone] Iain Hicks MD Unavailable [phone] Meliton Agudelo MD Unavailable [phone] Larry Anderson MD Unavailable [phone] Encounter Details Date Type Department Care Team (Late st Contact Info) Description 03/19/2022 Procedure Pass [facility], [facility] 30 [place] [address] Social History Tobacco Use Types Packs/Day Years [...] high school, GED, job training, learning the Bermudian language, technical skills, or developing parenting skills)? 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 documented as of this encounter Plan of Treatment Upcoming Encounters Date Type Department Care Team (Late st Contact Info) Description 11/15/2025 8:30 AM EDT Office Visit [facility] [place] [facility] [address] [place] [address] Meliton Agudelo MD [address] [place] [address], [address] [place] [address] documented as of this encounter Visit Diagnoses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documented in this encounter Additional Health Concerns Infection Onset Date Last Indicated Resolved Time COVID-19 05/05/2023 05/05/2023 05/26/2023 1:21 AM EST Assessment Noted Time PHQ-2 Depression Total Score: 0 11/06/19 9:20 AM EDT documented as of this encounter Care Teams Hydro Operator Relationship Specialty Start Date End Date Meliton Agudelo MD [address] [place] [address], [address] [place] [address] PCP - General Internal Medicine 11/05/21 Lamine Navarro MD [address] [place] [address] Gastroenterology 11/05/21 Iain Hicks MD [address] [place] [address], [address] [place], [place] [address] Ophthalmology 07/01/22 Meliton Agudelo MD [address] [place] [address], [address] [place] [address] [email or web address] Insurance Assigned Provider 09/27/23 Larry Anderson MD [address] [place] [address] [address] [place] [address] Otolaryngology 11/10/23 documented as of this encounter Additional Source Comments The information contained in this document represents components of the legal health record. It is not the complete legal health record.[facility]
--- OUTSIDE RECORDS SUMMARY | 2025-03-28 12:41 | XMS_ITS | Patient Health Record ---
Author [facility] Address [address] [place] [address] Care Team Providers Care Brass Instrument Repair Technician Name Role Phone Magnus WATSON, Meliton Primary Care Provider Ra Velez Unavailable [phone] Allergies Allergen (clinical drug ingredient) Drug/Non Drug [...] a day; Duration: 30 day(s) Active Nystatin 665597 UNIT 1 tablet Orally every 8 hrs; [...] Route Administration Date Status Comme nts COVID-19 Pfizer BioNTech Vaccine Unknown 10/30/2021 Administered 1st 07/11/2020 [...] Status Risk Notes Problem Acquired hallux rigidus (1718529) Hallux rigidus, left foot (M20.22) Active confirmed Problem Acquired hallux rigidus (2959009) Hallux rigidus, right foot (M20.21) Active confirmed Plan Of Treatment Pending Test Test Name Order Date X ray : Foot, right 3V 03/15/2019 Insurance Providers Payer Name Payer Address Payer Phone Subscriber Number Group Number Insured Name Patient Relationship to Insured Coverage Start Date Coverage End Date Medicare National Govt S[employer] [address] [place] [address] [id number] Tamara Bernal Self - patient is the insured [facility] ([facility] [address] [place] [address] [phone] [id number] Tamara Bernal Self - patient is the insured Medical (General) History Medical History History ICD Code Measles Mumps Supraventricular tachycardia Surgical History Surgery Date(Month/Year) appendectomy ovarian surgery- right removed eye surgery-Blocked tear duct right eye 02/08/2019 eye surgery- blocked tear duct-right eye 03/24/2019
--- OUTSIDE RECORDS SUMMARY | 2025-03-28 12:41 | XMS_ITS | Encounter Summary ---
Author Organization [facility] Address [address] [facility] [address] [place] [address] Phone Care Team Providers Care Hand Spring Former Name Role Phone Meliton Agudelo MD Primary Care Provider [phone] Lamine Navarro MD Unavailable [phone] Iain Hicks MD Unavailable [phone] Meliton Agudelo MD Unavailable [phone] Larry Anderson MD Unavailable Encounter Details Date Type Department Care Team (Latest Contact Info) Description 04/09/2023 Transcribe Orders Virtual Department 30 [place], [place] [id number] Meliton Agudelo MD [address] [facility], [address] [place] [address] [email or web address] Encounter for screening mammogram for [...] high school, GED, job training, learning the [place] Islander language, technical skills, or developing parenting skills)? 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 documented as of this encounter Plan of Treatment Upcoming Encounters Date Type Department Care Team (Late st Contact Info) Description 11/15/2025 8:30 AM EDT Office Visit [facility] [place] [facility] [address] [place] [address] Meliton Agudelo MD [address] [facility], [address] [place] [address] documented as of this encounter Results * [...] documented as of this encounter Care Teams Hand Spring Former Relationship Specialty Start Date End Date Meliton Agudelo MD [address] [place] [address], [address] [place] [address] PCP - General Internal Medicine 11/05/21 Lamine Navarro MD [address] [place] [address] Gastroenterology 11/05/21 Iain Hicks MD [address] [place] [address], [address] [place], [place] [address] [email or web address] Ophthalmology 07/01/22 Meliton Agudelo MD [address] [place] [address], [address] [place] [address] [email or web address] Insurance Assigned Provider 09/27/23 Larry Anderson MD [address] [place] [address] [place] [address] Otolaryngology 11/10/23 documented as of this encounter Additional Source Comments The information contained in this document represents components of the legal health record. It is not the complete legal health record.[facility]
--- OUTSIDE RECORDS SUMMARY | 2025-03-28 12:41 | XMS_ITS | Encounter Summary ---
Author Organization [facility] Address [address] [facility] [address] [place] [address] Phone Care Team Providers Care Management Liaison Name Role Phone Meliton Agudelo MD Primary Care Provider [phone] Lamine Navarro MD Unavailable [phone] Iain Hicks MD Unavailable [phone] Meliton Agudelo MD Unavailable [phone] Larry Anderson MD Unavailable Encounter Details Date Type Department Care Team (Late st Contact Info) Description 08/25/2023 Ancillary Orders [facility] [address] [place], [place] [phone] Meliton Agudelo MD 22 [facility], [address] [place] [address] [email or web address] Abnormal finding on mammography (Primary [...] high school, GED, job training, learning the [place]er language, technical skills, or developing parenting [...] 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, [employer]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 documented as of this encounter Plan of Treatment Upcoming Encounters Date Type Department Care Team (Late st Contact Info) Description 11/15/2025 8:30 AM EDT Office Visit [facility] [place] [facility] [address] [place] [address] [place] [address] Meliton Agudelo MD 22 [facility], [address] [place] [address] documented as of this encounter Results * [...] documented as of this encounter Care Teams Management Liaison Relationship Specialty Start Date End Date Meliton Agudelo MD [address] [place] [address], [address] [place] [address] PCP - General Internal Medicine 11/05/21 Lamine Navarro MD [address] [place] [address] Gastroenterology 11/05/21 Iain Hicks MD [address] [place] [address], [address] [address] Ophthalmology 07/01/22 Meliton Agudelo MD [address] [place] [address], [address] [place] [address] [email or web address] Insurance Assigned Provider 09/27/23 Larry Anderson MD [address] [place] [address] [place] [address] Otolaryngology 11/10/23 documented as of this encounter Additional Source Comments The information contained in this document represents components of the legal health record. It is not the complete legal health record.[facility]
--- OUTSIDE RECORDS SUMMARY | 2025-03-28 12:42 | XMS_ITS | Clinical Summary ---
Author Organization [facility] Address [address] [address] Phone Care Team Providers Care Coordinator Of Library Services Name Role Phone Meliton Agudelo MD Primary Care Provider [phone] Lamine Navarro MD Unavailable [phone] Iain Hicks MD Unavailable [phone] Meliton Agudelo MD Unavailable Larry Anderson MD Unavailable [phone] Allergies Active Allergy Reactions Criticality Noted Date [...] to plan. She has follow up with [employer] [employer] in early June. 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 smoking, excerise, hormones, sex and age. CHOLESTEROL 195 0 - 240 mg/dL [facility] TRIGLYCERIDES 40 30 - 160 mg/dL [facility] LDL 118 50 - 129 mg/dL [facility] Comment: LDL levels in terms of risk for coronary heart disease: <100 mg/dL: Optimal 100-129 mg/dL: Near or above optimal 130-159 mg/dL: Borderline high 160-189 mg/dL: High >190 mg/dL: Very High CARDIAC RISK RATIO 2.8(L) 3.3 - 4.4 [facility] 10/30/2022 8:37 AM EDT 10/30/2022 8:42 AM EDT us Meliton Agudelo MD LAB BLOOD ORDERABLES Final Result [facility] [address] [place] [address] from Last 3 Months or Most Recently Relevant to Health Maintenance Insurance MEDICARE PART A & B [employer] MEDICARE SUPPLEMENT MEDICARE PART A & B Vive[employer] MEDICARE SUPPLEMENT MEDICARE PART A & B [facility] MEDICARE SUPPLEMENT MEDICARE PART A & B [facility] MEDICARE SUPPLEMENT [facility]ICARE PART [facility] & [facility] MEDICARE PART A & B Member Subscriber Plan / Payer ( fective 2014-Present) Name:Dolores Tamara Member ID:[id number] Relation to Subscriber:Self Name:Tamara Bernal Subscriber ID:[id number] Payer ID:[id number] Group ID:Not on file Type:Medicare Address: [employer] [address] [place] [address] [place] [address] MEDICARE SUPPLEMENT MEDICARE PART A & B [facility] MEDIC[facility] SUPPLEMENT MEDICARE PART A & B [employer] MEDICARE SUPPLEMENT MEDICARE PART A & B [employer] MEDICARE SUPPLEMENT Care Teams Coordinator Of Library Services Relationship Specialty Start Date End Date Meliton Agudelo MD [address] [place] [address], [address] [place] [address] PCP - General Internal Medicine 11/05/21 Lamine Navarro MD [address] [place] [address] Gastroenterology 11/05/21 Iain Hicks MD [address] [place] [address], [address] [address] [email or web address] Ophthalmology 07/01/22 Meliton Agudelo MD [address] [place] [address], [address] [place] [address] Insurance Assigned Provider 09/27/23 Larry Anderson MD [address] [place] [address] Otolaryngology 11/10/23 Additional Source Comments The information contained in this document represents components of the legal health record. It is not the complete legal health record.[facility]
--- OUTSIDE RECORDS SUMMARY | 2025-03-28 12:42 | XMS_ITS | Encounter Summary ---
Author Organization [facility] Address 399 [facility] [address] [place] [address] Phone Care Team Providers Care Dealer Compliance Representative Name Role Phone Som Adkins MD Primary Care Provider Meliton Agudelo MD Primary Care Provider [phone] Lamine Navarro MD Unavailable [phone] Iain Hicks MD Unavailable [phone] Meliton Agudelo MD Unavailable [phone] Larry Anderson MD Unavailable Encounter Details Date Type Department Care Team (Late st Contact Info) Description 05/20/2020 Procedure Pass [facility] [place] [address] Social History Tobacco Use Types Packs/Day Years [...] 11/15/2025 8:30 AM EDT Office Visit [facility] Medicine [address] [place] [address] [place] [address] Meliton Agudelo MD 22 [facility], [address] [place] [address] [email or web address] documented as of this encounter Visit Diagnoses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documented in this encounter Additional Health Concerns Infection Onset Date Last Indicated Resolved Time CoV-Risk 01/22/2021 01/22/2021 02/01/2021 1:45 AM EDT COVID-19 05/05/2023 05/05/2023 05/26/2023 1:21 AM EST documented as of this encounter Care Teams Dealer Compliance Representative Relationship Specialty Start Date End Date Som Adkins MD [address] [place] [address] & [address] [place] [address] [email or web address] PCP - General Internal Medicine 05/26/17 11/04/21 Meliton Agudelo MD [address] [place] [address], [address] [place] [address] [email or web address] PCP - General Internal Medicine 11/05/21 Lamine Navarro MD [address] [place] [address] Gastroenterology 11/05/21 Iain Hicks MD [address] [place] [address] Ophthalmology 07/01/22 Meliton Agudelo MD [address] [place] [address], [address] [place] [address] [email or web address] Insurance Assigned Provider 09/27/23 Larry Anderson MD [address] [place] [address] Otolaryngology 11/10/23 documented as of this encounter Additional Source Comments The information contained in this document represents components of the legal health record. It is not the complete legal health record.[facility]
--- OUTSIDE RECORDS SUMMARY | 2025-03-28 12:42 | XMS_ITS | Encounter Summary ---
Author Organization [facility] Address 399 [facility] [address] [place] [address] Phone Care Team Providers Care Groover And Turner Name Role Phone Som Adkins MD Primary Care Provider eMliton Agudelo MD Primary Care Provider [phone] Lamine Navarro MD Unavailable [phone] Iain Hicks MD Unavailable [phone] Meliton Agudelo MD Unavailable [phone] Larry Anderson MD Unavailable Encounter Details Date Type Department Care Team (Late st Contact Info) Description 04/12/2017 Ancillary Orders [facility] [address] [place] [address] [place] [address] Ken Bingham MD [address] [place] [address] Social History Tobacco Use Types Packs/Day Years [...] EDT Office Visit [facility] [place] [facility] [address] [place] [address] [place] [address] Meliton Agudelo MD 22 [facility], [address] [place] [address] [email or web address] documented as of this encounter Visit Diagnoses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documented in this encounter Additional Health Concerns Infection Onset Date Last Indicated Resolved Time CoV-Risk 01/22/2021 01/22/2021 02/01/2021 1:45 AM EDT COVID-19 05/05/2023 05/05/2023 05/26/2023 1:21 AM EST documented as of this encounter Care Teams Groover And Turner Relationship Specialty Start Date End Date JedSom MD [address] [place] [address] [address] [place] [address] [email or web address] PCP - General Internal Medicine 05/26/17 11/04/21 Meliton Agudelo MD [address] [place] [address], [address] [place] [address] [email or web address] PCP - General Internal Medicine 11/05/21 Lamine Navarro MD [address] [place] [address] Gastroenterology 11/05/21 Iain Hicks MD [address] [place] [address] [email or web address] Ophthalmology 07/01/22 Meliton Agudelo MD [address] [place] [address], [address] [place] [address] Insurance Assigned Provider 09/27/23 Larry Anderson MD [address] [place] [address] Otolaryngology 11/10/23 documented as of this encounter Additional Source Comments The information contained in this document represents components of the legal health record. It is not the complete legal health record.[facility]
--- OUTSIDE RECORDS SUMMARY | 2025-03-28 12:42 | XMS_ITS | Clinical Summary ---
Author Organization [facility] [address] [facility] Address 299 [place] [address] Phone Care Team Providers Care Director Of Fundraising Name Role Phone Meliton Agudelo MD Primary Care Provider [phone] Allergies Active Allergy Reactions Criticality Noted Date Comments Azithromycin Nausea And Vomiting 04/20/2018 Erythromycin 08/26/2024 Levofloxacin 08/26/2024 Sulfamethoxazole-Trimethoprim 2024 Medications multivitamin-mi c-qmvn-HI-vit K 45 mg iron- 800 mcg-120 mcg [...] Noted Date Diagnosed Date SVT (supraventricular tachycardia) (CMS/[facility] V24) 08/26/2024 Irritable bowel syndrome without [...] Recently Relevant to Health Maintenance Insurance MEDICARE [facility] Care Teams Director Of Fundraising Relationship Specialty Start Date End Date Meliton Agudelo MD [address] [place] [address], [address] [place] [address] PCP - General Internal Medicine 08/26/24
--- OUTSIDE RECORDS SUMMARY | 2025-03-28 12:42 | XMS_ITS | Encounter Summary ---
Author Organization [facility] Address [address] [address] Phone Care Team Providers Care Commercial Loan Analyst Name Role Phone Som Adkins MD Primary Care Provider Meliton Agudelo MD Primary Care Provider [phone] Lamine Navarro MD Unavailable [phone] Iain Hicks MD Unavailable [phone] Meliton Agudelo MD Unavailable [phone] Larry Anderson MD Unavailable [phone] Reason for Referral * Physical Therapy (Routine) - Closed Specialty Diagnoses / Procedures Referred By Geoff lee Referred To Contact Physical Therapy Diagnoses Encounter for rehabilitation Som Adkins MD Phone: tel: fax: [email or web address] [address] [place] [address] Phone: tel: Referral ID Status Reason Start Date Expiration Date Visits Re quested Visits Authorized [id number] Closed 11/25/2017 06/22/2018 99 [phone] Encounter Details Date Type Department Care Team (Latest Contact Info) Description 11/04/2017 Transcribe Orders [facility] [address] [place] [address] Som Adkins MD [address] [place] [address] [address] [email or web address] Encounter for rehabilitation (Primary Dx) Social History [...] Description 11/15/2025 8:30 AM EDT Office Visit [address] [address] Meliton Agudelo MD [address] [place] [address], [address] [place] [address] [email or web address] Scheduled Referrals Name Type Priority Associated Diagnoses Orde r Schedule Ambulatory referral to [facility] Physical Therapy Outpatient Referral Routine Encounter for rehabilitation Ordered: 11/04/2017 documented as of this encounter Visit Diagnoses Diagnosis Encounter for rehabilitation- Primary documented in this encounter Additional Health Concerns Infection Onset Date Last Indicated Resolved Time CoV-Risk 01/22/2021 01/22/2021 02/01/2021 1:45 AM EDT COVID-19 05/05/2023 05/05/2023 05/26/2023 1:21 AM EST documented as of this encounter Care Teams Commercial Loan Analyst Relationship Specialty Start Date End Date Jed, Som Beaver MD [address] [place] [address] [email or web address] PCP - General Internal Medicine 05/26/17 11/04/21 Meliton Agudelo MD [address] [place] [address], [address] [place] [address] PCP - General Internal Medicine 11/05/21 Lamine Navarro MD [address] [place] [address] Gastroenterology 11/05/21 Iain Hicks MD [address] [place] [address], [address] [place] [address] Ophthalmology 07/01/22 Meliton Agudelo MD [address] [place] [address], [address] [place] [address] Insurance Assigned Provider 09/27/23 Larry Anderson MD [address] [place] [address] Otolaryngology 11/10/23 documented as of this encounter Additional Source Comments The information contained in this document represents components of the legal health record. It is not the complete legal health record.[facility]
--- OUTSIDE RECORDS SUMMARY | 2025-03-28 12:42 | XMS_ITS | Encounter Summary ---
Author Organization [facility] Address 399 [facility] [address] [place] [address] Phone Care Team Providers Care Product Support Engineer Name Role Phone Meliton Agudelo MD Primary Care Provider [phone] Lamine Navarro MD Unavailable [phone] Iain Hicks MD Unavailable [phone] Meliton Agudelo MD Unavailable [phone] Larry Anderson MD Unavailable [phone] Encounter Details Date Type Department Care Team (Late st Contact Info) Description 08/25/2023 Procedure Pass [facility], [facility] [address] [place] [address] Social History Tobacco Use Types Packs/Day Years [...] high school, GED, job training, learning the Azerbaijani language, technical skills, or developing parenting skills)? 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 documented as of this encounter Plan of Treatment Upcoming Encounters Date Type Department Care Team (Late st Contact Info) Description 11/15/2025 8:30 AM EDT Office Visit [facility] [address] [place] [address] [place] [address] Meliton Agudelo MD [address] [place] [address], [address] [place] [address] [email or web address] documented as of this encounter Visit Diagnoses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documented in this encounter Additional Health Concerns Assessment Noted Time PHQ-2 Depression Total Score: 0 11/05/19 23 9:02 AM EDT documented as of this encounter Care Teams Product Support Engineer Relationship Specialty Start Date End Date Meliton Agudelo MD [address] [place] [address], [address] [place] [address] PCP - General Internal Medicine 11/05/21 Lamine Navarro MD [address] [place] [address] Gastroenterology 11/05/21 Iain Hicks MD [address] [place] [address], [address] [place] [address] [email or web address] Ophthalmology 07/01/22 Meliton Agudelo MD [address] [place] [address], [address] [place] [address] [email or web address] Insurance Assigned Provider 09/27/23 Larry Anderson MD [address] [place] [address] [address] [place] [address] Otolaryngology 11/10/23 documented as of this encounter Additional Source Comments The information contained in this document represents components of the legal health record. It is not the complete legal health record.[facility]
--- OUTSIDE RECORDS SUMMARY | 2025-03-28 12:42 | XMS_ITS | Encounter Summary ---
Author Organization [facility] Address 399 [facility] [address] [place] [address] Phone Care Team Providers Care Director Fundraising Name Role Phone Meliton Agudelo MD Primary Care Provider [phone] Lamine Navarro MD Unavailable [phone] Iain Hicks MD Unavailable [phone] Meliton Agudelo MD Unavailable [phone] Larry Anderson MD Unavailable [phone] Encounter Details Date Type Department Care Team (Late st Contact Info) Description 04/09/2023 Procedure Pass [facility], [facility] [address] [place] [address] Social History Tobacco Use Types Packs/Day Years [...] high school, GED, job training, learning the Spanish language, technical skills, or developing parenting skills)? 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 [address] [place] [address] [place] [address] Meliton Agudelo MD [address] [place] [address], [address] [place] [address] [email or web address] documented as of this encounter Visit Diagnoses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documented in this encounter Additional Health Concerns Infection Onset Date Last Indicated Resolved Time COVID-19 05/05/2023 05/05/2023 05/26/2023 1:21 AM EST Assessment Noted Time PHQ-2 Depression Total Score: 0 11/05/19 9:02 AM EDT documented as of this encounter Care Teams Director Fundraising Relationship Specialty Start Date End Date Meliton Agudelo MD [address] [place] [address], [address] [place] [address] [email or web address] PCP - General Internal Medicine 11/05/21 Lamine Navarro MD [address] [place] [address] Gastroenterology 11/05/21 Iain Hicks MD [address] [place] [address], [address] [place] [address] [email or web address] Ophthalmology 07/01/22 Meliton Agudelo MD [address] [place] [address], [address] [place] [address] [email or web address] Insurance Assigned Provider 09/27/23 Larry Anderson MD [address] [place] [address] Otolaryngology 11/10/23 documented as of this encounter Additional Source Comments The information contained in this document represents components of the legal health record. It is not the complete legal health record.[facility]
--- OUTSIDE RECORDS SUMMARY | 2025-03-28 12:42 | XMS_ITS | Encounter Summary ---
Author Organization [facility] Address 399 [facility] [address] [place] [address] Phone Care Team Providers Care Tag Press Operator Name Role Phone Som Adkins MD Primary Care Provider [phone] Deidra Agudelo MD Primary Care Provider [phone] Lamine Navarro MD Unavailable [phone] Iain Hicks MD Unavailable [phone] Deidra Agudelo MD Unavailable [phone] Larry Anderson MD Unavailable Encounter Details Date Type Department Care Team (Late st Contact Info) Description 04/12/2017 Ancillary Orders [facility], [facility] [address] [place] [address] Ken Bingham MD [address] [place] [address] Visit for screening mammogram Social History Tobacco [...] Description 11/15/2025 8:30 AM EDT Office Visit [address] [place] [address] Deidra Agudelo MD 22 [facility], [address] [place] [address] [email or web address] documented as of this encounter Results * [...] lowers the sensitivity of mammography. POS - [id number] Narrative 05/26/2017 7:56 AM EST 71-year-old female [...] whichlowers the sensitivity of mammography. POS - [id number] Ken Bingham MD IMG MG EXAMS Final Result documented in this encounter Visit Diagnoses Diagnosis Visit for screening mammogram Visit for screening mammogram documented in this encounter Additional Health Concerns Infection Onset Date Last Indicated Resolved Time CoV-Risk 01/22/2021 01/22/2021 02/01/2021 1:45 AM EDT COVID-19 05/05/2023 05/05/2023 05/26/2023 1:21 AM EST documented as of this encounter Care Teams Tag Press Operator Relationship Specialty Start Date End Date Jed, Som Beaver MD [address] [place] [address] [address] [place] [address] [email or web address] PCP - General Internal Medicine 05/26/17 11/04/21 Deidra Agudelo MD [address] [place] [address] [address] [place] [address] [email or web address] PCP - General Internal Medicine 11/05/21 Lamine Navarro MD [address] [place] [address] Gastroenterology 11/05/21 Iain Hicks MD [address] [place] [address] [email or web address] Ophthalmology 07/01/22 Deidra Agudelo MD [address] [place] [address], [address] [place] [address] [email or web address] Insurance Assigned Provider 09/27/23 Larry Anderson MD [address] [place] [address] Otolaryngology 11/10/23 documented as of this encounter Additional Source Comments The information contained in this document represents components of the legal health record. It is not the complete legal health record.[facility]
--- OUTSIDE RECORDS SUMMARY | 2025-03-28 12:42 | XMS_ITS | Encounter Summary ---
Author Organization [facility] Address 399 [facility] [address] [place] [address] Phone Care Team Providers Care Delivery Director Name Role Phone Som Adkins MD Primary Care Provider Meliton Agudelo MD Primary Care Provider [phone] Lamine Navarro MD Unavailable [phone] Iain Hicks MD Unavailable [phone] Meliton Agudelo MD Unavailable [phone] Larry Anderson MD Unavailable [phone] Encounter Details Date Type Department Care Team (Late st Contact Info) Description 03/06/2020 Procedure Pass [address] [address] Social History Tobacco Use Types Packs/Day Years [...] Description 11/15/2025 8:30 AM EDT Office Visit [facility] [address] [place] [address] [place] [address] Meliton Agudelo MD 22 [facility], [address] [place] [address] documented as of this encounter Visit Diagnoses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documented in this encounter Additional Health Concerns Infection Onset Date Last Indicated Resolved Time CoV-Risk 01/22/2021 01/22/2021 02/01/2021 1:45 AM EDT COVID-19 05/05/2023 05/05/2023 05/26/2023 1:21 AM EST documented as of this encounter Care Teams Delivery Director Relationship Specialty Start Date End Date JedSom MD [address] [place] [address] [address] [place] [address] [email or web address] PCP - General Internal Medicine 05/26/17 11/04/21 Meliton Agudelo MD [address] [place] [address], [address] [place] [address] [email or web address] PCP - General Internal Medicine 11/05/21 Lamine Navarro MD [address] [place] [address] Gastroenterology 11/05/21 Iain Hicks MD [address] [place] [address] [email or web address] Ophthalmology 07/01/22 Meliton Agudelo MD [address] [place] [address], [address] [place] [address] [email or web address] Insurance Assigned Provider 09/27/23 Larry Anderson MD [address] [place] [address] Otolaryngology 11/10/23 documented as of this encounter Additional Source Comments The information contained in this document represents components of the legal health record. It is not the complete legal health record.[facility]
--- OUTSIDE RECORDS SUMMARY | 2025-03-28 12:42 | XMS_ITS | Encounter Summary ---
Author Organization [facility] Address [address] [facility] [address] [place] [address] Phone Care Team Providers Care Roller Skate Repairer Name Role Phone Som Adkins MD Primary Care Provider Meliton Agudelo MD Primary Care Provider [phone] Lamine Navarro MD Unavailable [phone] Iain Hicks MD Unavailable [phone] Meliton Agudelo MD Unavailable [phone] Larry Anderson MD Unavailable Encounter Details Date Type Department Care Team (Late st Contact Info) Description 11/04/2017 Ancillary Orders Virtual Department [address] [place] [address] Som Adkins MD 264 [facility] [address] [place] [address] [email or web address] Breast screening; Trochanteric bursitis of left hip [...] 11/15/2025 8:30 AM EDT Office Visit [facility] [address] [place] [address] Meliton Agudelo MD [address] [place] [address], [address] [place] [address] [email or web address] documented as of this encounter Results * [...] lowers the sensitivity of mammography. POS - [id number] Narrative 05/27/2018 9:14 AM EST STUDY: Bilateral [...] whichlowers the sensitivity of mammography. POS - [id number] us Som Adkins MD IMG MG EXAMS [...] documented as of this encounter Care Teams Roller Skate Repairer Relationship Specialty Start Date End Date JedSom MD [address] [place] [address] [address] [place] [address] [email or web address] PCP - General Internal Medicine 05/26/17 11/04/21 Meliton Agudelo MD [address] [place] [address], [address] [place] [address] PCP - General Internal Medicine 11/05/21 Lamine Navarro MD [address] [place] [address] Gastroenterology 11/05/21 Iain Hicks MD [address] [place] [address] Ophthalmology 07/01/22 Meliton Agudelo MD [address] [place] [address], [address] [place] [address] Insurance Assigned Provider 09/27/23 Larry Anderson MD [address] [place] [address] Otolaryngology 11/10/23 documented as of this encounter Additional Source Comments The information contained in this document represents components of the legal health record. It is not the complete legal health record.[facility]
--- OUTSIDE RECORDS SUMMARY | 2025-03-28 12:42 | XMS_ITS | Encounter Summary ---
Author Organization [facility] Address [address] [facility] [address] [place] [address] Phone Care Team Providers Care Recreation Engineer Name Role Phone Som Adkins MD Primary Care Provider [phone] Meliton Agudelo MD Primary Care Provider [phone] Lamine Navarro MD Unavailable [phone] Iain Hicks MD Unavailable [phone] Meliton Agudelo MD Unavailable [phone] Larry Anderson MD Unavailable Encounter Details Date Type Department Care Team (Latest Contact Info) Description 07/31/2017 Transcribe Orders [address] [address] Som Adkins MD [address] [facility] [address] [place] [address] [email or web address] Routine medical exam (Primary Dx); High cholesterol; [...] 11/15/2025 8:30 AM EDT Office Visit [facility] [address] [place] [address] Meliton Agudelo MD [address] [place] [address], [address] [place] [address] [email or web address] documented as of this encounter Results * CBC and differential (07/31/2017 7:56 AM EST) WBC 5.60 3.40 - 11.20 K/uL [facility] RBC 4.57 3.80 - 4.80 M/uL [facility] HGB 13.8 12.0 - 15.0 g/dL [facility] HCT 42.1 36.0 - 46.0 % [facility] PLT 293 130 - 400 K/uL [facility] MCV 92.1 79.0 - 98.0 fL [facility] MCH 30.2 27.0 - 34.8 pg [facility] MCHC 32.8 31.5 - 36.0 g/dL [facility] RDW 12.7 10.8 - 14.6 % [facility] MPV 10.6 9.4 - 12.4 fl [facility] NRBC 0.00 /100 WBCs [facility] ABSOLUTE NRBC 0.00 K/uL [facility] DIFF METHOD Auto [facility] NEUTS 52.8 45.30 - 77.70 % [facility] LYMPHS 32.5 12.30 - 39.70 % [facility] MONOS 9.5 4.10 - 12.80 % [facility] EOS 3.9 0 - 7.2 % [facility] BASOS 1.1 0 - 2.80 % [facility] Granulocytes, immature (%) 0.2 0.0 - 0.9 % [facility] ABSOLUTE NEUTS 2.96 1.40 - 7.70 K/uL [facility] ABSOLUTE LYMPHS 1.82 0.60 - 3.20 K/uL [facility] ABSOLUTE MONOS 0.53 0.11 - 0.59 K/uL [facility] ABSOLUTE EOS 0.22 0.01 - 0.50 K/uL [facility] ABSOLUTE BASOS 0.06 0.00 - 0.08 K/uL [facility] Granulocytes, immature 0.01 0.00 - 0.05 K/uL [facility] Blood 07/31/2017 7:56 AM EST 07/31/2017 8:01 AM EST Som Adkins MD LAB BLOOD ORDERABLES Final Resu lt Performing Organization Address [facility] Co de Phone Number [address] [address] * TSH (07/31/2017 7:56 AM EST) TSH 3.24 0.27 - 4.20 uIU/mL [facility] Blood 07/31/2017 7:56 AM EST 07/31/2017 8:01 AM EST Som Adkins MD LAB BLOOD ORDERABLES Final Resu lt Performing Organization Address [facility] Co de Phone Number [address] [address] * (ABNORMAL) Lipid panel (07/31/2017 7:56 AM EST) HDL 76 mg/dL [facility] Comment: Interpretation: Risk Level Females Decreased >55mg/dL Average 50-55 mg/dL Increased <50 mg/dL CHOLESTEROL 210 0 - 240 mg/dL [facility] TRIGLYCERIDES 43 30 - 160 mg/dL [facility] LDL 125 50 - 129 mg/dL [facility] Comment: LDL levels in terms of risk for coronary heart disease: <100 mg/dL: Optimal 100-129 mg/dL: Near or above optimal 130-159 mg/dL: Borderline high 160-189 mg/dL: High >190 mg/dL: Very High CARDIAC RISK RATIO 2.8(L) 3.3 - 4.4 [facility] Blood 07/31/2017 7:56 AM EST 07/31/2017 8:01 AM EST Som Adkins MD LAB BLOOD ORDERABLES Final Resu lt Performing Organization Address [facility] Co de Phone Number [address] [address] * Comprehensive metabolic panel (07/31/2017 7:56 AM EST) SODIUM 142 133 - 146 mmol/L [facility] POTASSIUM 4.6 3.3 - 5.1 mmol/L [facility] CHLORIDE 102 96 - 108 mmol/L [facility] CO2 30 21 - 35 mmol/L [facility] BUN 15 6 - 19 mg/dL [facility] CREATININE 0.70 0.5 - 1.5 mg/dL [facility] GLUCOSE 80 70 - 99 mg/dL [facility] ALBUMIN 4.3 3.9 - 4.8 g/dL [facility] TOTAL PROTEIN 7.1 6.5 - 8.0 g/dL [facility] CALCIUM 9.4 8.4 - 10.3 mg/dL [facility] ALKALINE PHOSPHATASE 65 39 - 117 U/L [facility] TOTAL BILIRUBIN 0.6 0 - 1.2 mg/dL [facility] AST 25 0 - 37 U/L [facility] ALT 11 0 - 40 U/L [facility] GLOBULIN 2.8 1 - 4.8 g/dL [facility] EGFR >60 mL/min/1.7 3m2 [facility] Comment:Abnormal if <60. If patient is -[place], multiply the result by 1.21. ANION GAP 15 10 - 20 mmol/L [facility] Blood 07/31/2017 7:56 AM EST 07/31/2017 8:01 AM EST us Som Adkins MD LAB BLOOD ORDERABLES Final Resu lt [address] [address] documented in this encounter Visit Diagnoses Diagnosis Routine medical exam- Primary Routine general medical examination at a health care facility High cholesterol Pure hypercholesterolemia Fatigue, unspecified type documented in this encounter Additional Health Concerns Infection Onset Date Last Indicated Resolved Time CoV-Risk 01/22/2021 01/22/2021 02/01/2021 1:45 AM EDT COVID-19 05/05/2023 05/05/2023 05/26/2023 1:21 AM EST documented as of this encounter Care Teams Recreation Engineer Relationship Specialty Start Date End Date JedSom MD [address] [place] [address] [address] [place] [address] [email or web address] PCP - General Internal Medicine 05/26/17 11/04/21 Meliton Agudelo MD [address] [place] [address], [address] [place] [address] PCP - General Internal Medicine 11/05/21 Lamine Navarro MD [address] [place] [address] Gastroenterology 11/05/21 Iain Hicks MD [address] [place] [address] Ophthalmology 07/01/22 Meliton Agudelo MD [address] [place] [address], [address] [place] [address] Insurance Assigned Provider 09/27/23 Larry Anderson MD [address] [place] [address] Otolaryngology 11/10/23 documented as of this encounter Additional Source Comments The information contained in this document represents components of the legal health record. It is not the complete legal health record.[facility]
--- OUTSIDE RECORDS SUMMARY | 2025-03-28 12:42 | XMS_ITS | Encounter Summary ---
Author Organization [facility] Address [address] [facility] [address] [place] [address] Phone Care Team Providers Care Supervisor Cap And Hat Production Name Role Phone Som Adkins MD Primary Care Provider [phone] Meliton Agudelo MD Primary Care Provider [phone] Lamine Navarro MD Unavailable [phone] Iain Hicks MD Unavailable [phone] Meliton Agudelo MD Unavailable [phone] Larry Anderson MD Unavailable Encounter Details Date Type Department Care Team (Late st Contact Info) Description 03/06/2020 Ancillary Orders Virtual Department 30 [place] [address] Som Adkins MD 264 [facility] [address] [place] [address] [email or web address] Breast screening Social History Tobacco Use [...] 8:30 AM EDT Office Visit [facility] [address] [place] [address] Meliton Agudelo MD [address] [facility], [address] [place] [address] [email or web address] documented as of this encounter Results * [...] documented as of this encounter Care Teams Supervisor Cap And Hat Production Relationship Specialty Start Date End Date Som Adkins MD [address] [place] [address] [address] [place] [address] [email or web address] PCP - General Internal Medicine 05/26/17 11/04/21 Meliton Agudelo MD [address] [place] [address] PCP - General Internal Medicine 11/05/21 Lamine Navarro MD [address] [place] [address] Gastroenterology 11/05/21 Iain Hicks MD [address] [place] [address] [email or web address] Ophthalmology 07/01/22 Meliton Agudelo MD [address] [place] [address] Insurance Assigned Provider 09/27/23 Larry Anderson MD [address] [place] [address] Otolaryngology 11/10/23 documented as of this encounter Additional Source Comments The information contained in this document represents components of the legal health record. It is not the complete legal health record.[facility]
--- OUTSIDE RECORDS SUMMARY | 2025-03-28 12:42 | XMS_ITS | Encounter Summary ---
Author Organization [facility] Address [address] [facility] [address] [place] [address] Phone Care Team Providers Care Casing Crew Pusher Name Role Phone Meliton Agudelo MD Primary Care Provider [phone] Lamine Navarro MD Unavailable [phone] Iain Hicks MD Unavailable [phone] Meliton Agudelo MD Unavailable [phone] Larry Anderson MD Unavailable [phone] Encounter Details Date Type Department Care Team (Late st Contact Info) Description 04/12/2024 Procedure Pass , [facility] [address] [place] [address] Social History Tobacco Use Types Packs/Day Years [...] 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, [employer]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 documented as of this encounter Plan of Treatment Upcoming Encounters Date Type Department Care Team (Late st Contact Info) Description 11/15/2025 8:30 AM EDT Office Visit [facility] [employer] [facility] [address] [place] [address] Meliton Agudelo MD [address] [facility], [address] [place] [address] documented as of this encounter Visit Diagnoses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documented in this encounter Additional Health Concerns Assessment Noted Time PHQ-2 Depression Total Score: 0 11/10/19 8:49 AM EDT documented as of this encounter Care Teams Casing Crew Pusher Relationship Specialty Start Date End Date Meliton Agudelo MD [address] [place] [address], [address] [place] [address] PCP - General Internal Medicine 11/05/21 Lamine Navarro MD [address] [place] [address] Gastroenterology 11/05/21 Iain Hicks MD [address] [place] [address], [address] [address] Ophthalmology 07/01/22 Meliton Agudelo MD [address] [place] [address], [address] [place] [address] Insurance Assigned Provider 09/27/23 Larry Anderson MD [address] [place] [address] Otolaryngology 11/10/23 documented as of this encounter Additional Source Comments The information contained in this document represents components of the legal health record. It is not the complete legal health record.[facility]
--- OUTSIDE RECORDS SUMMARY | 2025-03-28 12:42 | XMS_ITS | Encounter Summary ---
Author Organization [facility] Address [address] [facility] [address] [place] [address] Phone Care Team Providers Care Back Padder Name Role Phone Som Adkins MD Primary Care Provider Meliton Agudelo MD Primary Care Provider [phone] Lamine Navarro MD Unavailable [phone] Iain Hicks MD Unavailable [phone] Meliton Agudelo MD Unavailable [phone] Larry Anderson MD Unavailable Encounter Details Date Type Department Care Team (Late st Contact Info) Description 03/09/2021 Procedure Pass [address] [address] Social History Tobacco Use Types Packs/Day Years [...] Description 11/15/2025 8:30 AM EDT Office Visit [facility] Medicine [address] [place] [address] [place] [address] Meliton Agudelo MD 22 [facility], [address] [place] [address] documented as of this encounter Visit Diagnoses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documented in this encounter Additional Health Concerns Infection Onset Date Last Indicated Resolved Time COVID-19 05/05/2023 05/05/2023 05/26/2023 1:21 AM EST documented as of this encounter Care Teams Back Padder Relationship Specialty Start Date End Date JedSom MD [address] [place] [address] [address] [place] [address] [email or web address] PCP - General Internal Medicine 05/26/17 11/04/21 Meliton Agudelo MD [address] [place] [address], [address] [place] [address] PCP - General Internal Medicine 11/05/21 Lamine Navarro MD [address] [place] [address] Gastroenterology 11/05/21 Iain Hicks MD [address] [place] [address] Ophthalmology 07/01/22 Meliton Agudelo MD [address] [place] [address] [place] [address] Insurance Assigned Provider 09/27/23 Larry Anderson MD [address] [place] [address] Otolaryngology 11/10/23 documented as of this encounter Additional Source Comments The information contained in this document represents components of the legal health record. It is not the complete legal health record.[facility]
== END 2025-03-28 11:00 | disposition home or self-care (01) ==
LOC: HO.HMGAL 10:39
PROVIDERS: PCP Internal Medicine; Visit Provider Registered Nurse Emergency
DX: J30.89 Other allergic rhinitis (principal)
CPT/HCPCS: 95117; 95165

== ENCOUNTER 2025-04-06 10:06 | Outpatient (AMB) | payer MEDICARE, OTHER, SELFPAY ==
--- OUTSIDE RECORDS SUMMARY | 2025-04-06 11:53 | XMS_ITS | Patient Health Record ---
[facility] Address [address] [place] [address] Care Team Providers Care Panel Maker Name Role Phone Magnus WATSON, Meliton Primary Care Provider Ra Velez Unavailable [phone] Allergies Allergen (clinical drug ingredient) Drug/Non Drug [...] a day; Duration: 30 day(s) Active Nystatin 350761 UNIT 1 tablet Orally every 8 hrs; [...] Status Risk Notes Problem Acquired hallux rigidus (1153747) Hallux rigidus, left foot (M20.22) Active confirmed Problem Acquired hallux rigidus (6053544) Hallux rigidus, right foot (M20.21) Active confirmed Plan Of Treatment Pending Test Test Name Order Date X ray : Foot, right 3V 03/15/2019 Insurance Providers Payer Name Payer Address Payer Phone Subscriber Number Group Number Insured Name Patient Relationship to Insured Coverage Start Date Coverage End Date Medicare National Govt S[employer] [address] [place] [address] [id number] Tamara Bernal Self - patient is the insured [facility] [address] [place] [address] [id number] Tamara Bernal Self - patient is the insured Medical (General) History Medical History History ICD Code Measles Mumps Supraventricular tachycardia Surgical History Surgery Date(Month/Year) appendectomy ovarian surgery- right removed eye surgery-Blocked tear duct right eye 02/08/2019 eye surgery- blocked tear duct-right eye 03/24/2019
--- OUTSIDE RECORDS SUMMARY | 2025-04-06 11:53 | XMS_ITS | Clinical Summary ---
Author Organization [facility] [address] [facility] Address [address] [place] [address] Phone Care Team Providers Care Electrical Appliance Servicer Name Role Phone Meliton Agudelo MD Primary Care Provider [phone] Allergies Active Allergy Reactions Criticality Noted Date Comments Azithromycin Nausea And Vomiting 04/20/2018 Erythromycin 08/26/2024 Levofloxacin 08/26/2024 Sulfamethoxazole-Trimethoprim 2024 Medications multivitamin-mi d-wzxw-GT-vit K 45 mg iron- 800 mcg-120 mcg [...] Noted Date Diagnosed Date SVT (supraventricular tachycardia) (CMS/[facility] V24) 08/26/2024 Irritable bowel syndrome [...] Recently Relevant to Health Maintenance Insurance MEDICARE [facility] Care Teams Electrical Appliance Servicer Relationship Specialty Start Date End Date Meliton Agudelo MD [address] [place] [address], [address] [place] [address] PCP - General Internal Medicine 08/26/24
== END 2025-04-06 10:10 | disposition home or self-care (01) ==
LOC: HO.HMGAL 10:06
PROVIDERS: PCP Internal Medicine; Visit Provider Registered Nurse Emergency
DX: J30.89 Other allergic rhinitis (principal)
CPT/HCPCS: 95117; 95165

== ENCOUNTER 2025-04-18 10:04 | Outpatient (AMB) | payer MEDICARE, OTHER, SELFPAY ==
--- OUTSIDE RECORDS SUMMARY | 2025-04-18 11:58 | XMS_ITS | Encounter Summary ---
Author Organization [facility] Address [address] [facility] [address] [place] [address] Phone Care Team Providers Care Professional Driver Name Role Phone Smo Adkins MD Primary Care Provider [phone] Meliton Agudelo MD Primary Care Provider [phone] Lamine Navarro MD Unavailable [phone] Iain Hicks MD Unavailable [phone] Meliton Agudelo MD Unavailable [phone] Larry Anderson MD Unavailable [phone] Encounter Details Date Type Department Care Team (Late st Contact Info) Description 05/20/2020 Procedure Pass [facility] [place] [place] [address] Social History Tobacco Use Types Packs/Day Years [...] 11/15/2025 8:30 AM EDT Office Visit [facility] Medicine [address] [place] [address] [place] [address] Meliton Agudelo MD 22 [facility], [address] [place] [address] documented as of this encounter Visit Diagnoses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documented in this encounter Additional Health Concerns Infection Onset Date Last Indicated Resolved Time CoV-Risk 01/22/2021 01/22/2021 02/01/2021 1:45 AM EDT COVID-19 05/05/2023 05/05/2023 05/26/2023 1:21 AM EST documented as of this encounter Care Teams Professional Driver Relationship Specialty Start Date End Date Som Adkins MD [address] [place] [address] [address] [place] [address] [email or web address] PCP - General Internal Medicine 05/26/17 11/04/21 Meliton Agudelo MD [address] [place] [address], [address] [place] [address] [email or web address] PCP - General Internal Medicine 11/05/21 Lamine Navarro MD [address] [place] [address] Gastroenterology 11/05/21 Iain Hicks MD [address] [place] [address] Ophthalmology 07/01/22 Meliton Agudelo MD [address] [place] [address], [address] [place] [address] [email or web address] Insurance Assigned Provider 09/27/23 Larry Anderson MD [address] [place] [address] Otolaryngology 11/10/23 documented as of this encounter Additional Source Comments The information contained in this document represents components of the legal health record. It is not the complete legal health record.[facility]
--- OUTSIDE RECORDS SUMMARY | 2025-04-18 11:58 | XMS_ITS | Encounter Summary ---
Author Organization [facility] Address [address] [facility] [address] [place] [address] Phone Care Team Providers Care Grass Farm Laborer Name Role Phone Som Adkins MD Primary Care Provider [phone] Meliton Agudelo MD Primary Care Provider [phone] Lamine Navarro MD Unavailable [phone] Iain Hicks MD Unavailable [phone] Meliton Agudelo MD Unavailable [phone] Larry Anderson MD Unavailable Encounter Details Date Type Department Care Team (Late st Contact Info) Description 03/06/2020 Procedure Pass [address] [address] Social History Tobacco Use Types Packs/Day Years [...] Description 11/15/2025 8:30 AM EDT Office Visit [facility] [address] [place] [address] [place] [address] Meliton Agudelo MD 22 [facility], [address] [place] [address] [email or web address] documented as of this encounter Visit Diagnoses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documented in this encounter Additional Health Concerns Infection Onset Date Last Indicated Resolved Time CoV-Risk 01/22/2021 01/22/2021 02/01/2021 1:45 AM EDT COVID-19 05/05/2023 05/05/2023 05/26/2023 1:21 AM EST documented as of this encounter Care Teams Grass Farm Laborer Relationship Specialty Start Date End Date JedSom MD [address] [place] [address] [address] [place] [address] [email or web address] PCP - General Internal Medicine 05/26/17 11/04/21 Meliton Agudelo MD [address] [place] [address], [address] [place] [address] [email or web address] PCP - General Internal Medicine 11/05/21 Lamine Navarro MD [address] [place] [address] Gastroenterology 11/05/21 Iain Hicks MD [address] [place] [address] [email or web address] Ophthalmology 07/01/22 Meliton Agudelo MD [address] [place] [address], [address] [place] [address] [email or web address] Insurance Assigned Provider 09/27/23 Larry Anderson MD [address] [place] [address] Otolaryngology 11/10/23 documented as of this encounter Additional Source Comments The information contained in this document represents components of the legal health record. It is not the complete legal health record.[facility]
--- OUTSIDE RECORDS SUMMARY | 2025-04-18 11:58 | XMS_ITS | Encounter Summary ---
Author Organization [facility] Address 399 [facility] [address] [place] [address] Phone Care Team Providers Care Water Systems Designer Name Role Phone Som Adkins MD Primary Care Provider Meliton Agudelo MD Primary Care Provider [phone] Lamine Navarro MD Unavailable [phone] Iain Hicks MD Unavailable [phone] Meliton Agudelo MD Unavailable [phone] Larry Anderson MD Unavailable Encounter Details Date Type Department Care Team (Latest Contact Info) Description 07/31/2017 Transcribe Orders [address] [address] JedSom hernández MD 264 [facility] [address] [place] [address] [email or web address] Routine medical exam (Primary Dx); High [...] 11/15/2025 8:30 AM EDT Office Visit [facility] [address] [place] [address] Meliton Agudelo MD [address] [place] [address], [address] [place] [address] [email or web address] documented as of this encounter Results * CBC and differential (07/31/2017 7:56 AM EST) WBC 5.60 3.40 - 11.20 K/uL [facility] RBC 4.57 3.80 - 4.80 M/uL [facility] HGB 13.8 12.0 - 15.0 g/dL [facility] HCT 42.1 36.0 - 46.0 % [facility] PLT 293 130 - 400 K/uL [facility] MCV 92.1 79.0 - 98.0 fL [facility] MCH 30.2 27.0 - 34.8 pg [facility] MCHC 32.8 31.5 - 36.0 g/dL [facility] RDW 12.7 10.8 - 14.6 % [facility] MPV 10.6 9.4 - 12.4 fl [facility] NRBC 0.00 /100 WBCs [facility] ABSOLUTE NRBC 0.00 K/uL [facility] DIFF METHOD Auto [facility] NEUTS 52.8 45.30 - 77.70 % [facility] LYMPHS 32.5 12.30 - 39.70 % [facility] MONOS 9.5 4.10 - 12.80 % [facility] EOS 3.9 0 - 7.2 % [facility] BASOS 1.1 0 - 2.80 % [facility] Granulocytes, immature (%) 0.2 0.0 - 0.9 % [facility] ABSOLUTE NEUTS 2.96 1.40 - 7.70 K/uL [facility] ABSOLUTE LYMPHS 1.82 0.60 - 3.20 K/uL [facility] ABSOLUTE MONOS 0.53 0.11 - 0.59 K/uL [facility] ABSOLUTE EOS 0.22 0.01 - 0.50 K/uL [facility] ABSOLUTE BASOS 0.06 0.00 - 0.08 K/uL [facility] Granulocytes, immature 0.01 0.00 - 0.05 K/uL [facility] Blood 07/31/2017 7:56 AM EST 07/31/2017 8:01 AM EST Som Adkins MD LAB BLOOD ORDERABLES Final Resu lt Performing Organization Address [facility] Co de Phone Number [address] [address] * TSH (07/31/2017 7:56 AM EST) TSH 3.24 0.27 - 4.20 uIU/mL [facility] Blood 07/31/2017 7:56 AM EST 07/31/2017 8:01 AM EST Som Adkins MD LAB BLOOD ORDERABLES Final Resu lt Performing Organization Address [facility] Co de Phone Number [address] [address] * (ABNORMAL) Lipid panel (07/31/2017 7:56 AM EST) HDL 76 mg/dL [facility] Comment: Interpretation: Risk Level Females Decreased >55mg/dL Average 50-55 mg/dL Increased <50 mg/dL CHOLESTEROL 210 0 - 240 mg/dL [facility] TRIGLYCERIDES 43 30 - 160 mg/dL [facility] LDL 125 50 - 129 mg/dL [facility] Comment: LDL levels in terms of risk for coronary heart disease: <100 mg/dL: Optimal 100-129 mg/dL: Near or above optimal 130-159 mg/dL: Borderline high 160-189 mg/dL: High >190 mg/dL: Very High CARDIAC RISK RATIO 2.8(L) 3.3 - 4.4 C [facility] Blood 07/31/2017 7:56 AM EST 07/31/2017 8:01 AM EST Som Adkins MD LAB BLOOD ORDERABLES Final Resu lt Performing Organization Address [facility] Co de Phone Number [address] [address] * Comprehensive metabolic panel (07/31/2017 7:56 AM EST) SODIUM 142 133 - 146 mmol/L [facility] POTASSIUM 4.6 3.3 - 5.1 mmol/L [facility] CHLORIDE 102 96 - 108 mmol/L [facility] CO2 30 21 - 35 mmol/L [facility] BUN 15 6 - 19 mg/dL [facility] CREATININE 0.70 0.5 - 1.5 mg/dL [facility] GLUCOSE 80 70 - 99 mg/dL [facility] ALBUMIN 4.3 3.9 - 4.8 g/dL [facility] TOTAL PROTEIN 7.1 6.5 - 8.0 g/dL [facility] CALCIUM 9.4 8.4 - 10.3 mg/dL [facility] ALKALINE PHOSPHATASE 65 39 - 117 U/L [facility] TOTAL BILIRUBIN 0.6 0 - 1.2 mg/dL [facility] AST 25 0 - 37 U/L [facility] ALT 11 0 - 40 U/L [facility] GLOBULIN 2.8 1 - 4.8 g/dL [facility] EGFR >60 mL/min/1.7 3m2 [facility] Comment:Abnormal if <60. If patient is -Montenegrin, multiply the result by 1.21. ANION GAP 15 10 - 20 mmol/L [facility] Blood 07/31/2017 7:56 AM EST 07/31/2017 8:01 AM EST us Som Adkins MD LAB BLOOD ORDERABLES Final Resu lt [address] [address] documented in this encounter Visit Diagnoses Diagnosis Routine medical exam- Primary Routine general medical examination at a health care facility High cholesterol Pure hypercholesterolemia Fatigue, unspecified type documented in this encounter Additional Health Concerns Infection Onset Date Last Indicated Resolved Time CoV-Risk 01/22/2021 01/22/2021 02/01/2021 1:45 AM EDT COVID-19 05/05/2023 05/05/2023 05/26/2023 1:21 AM EST documented as of this encounter Care Teams Water Systems Designer Relationship Specialty Start Date End Date JedSom MD [address] [place] [address] [address] [place] [address] [email or web address] PCP - General Internal Medicine 05/26/17 11/04/21 Meliton Agudelo MD [address] [place] [address], [address] [place] [address] PCP - General Internal Medicine 11/05/21 Lamine Navarro MD [address] [place] [address] Gastroenterology 11/05/21 Iain Hicks MD [address] [place] [address] Ophthalmology 07/01/22 Meliton Agudelo MD [address] [place] [address], [address] [place] [address] Insurance Assigned Provider 09/27/23 Larry Anderson MD [address] [place] [address] Otolaryngology 11/10/23 documented as of this encounter Additional Source Comments The information contained in this document represents components of the legal health record. It is not the complete legal health record.[facility]
--- OUTSIDE RECORDS SUMMARY | 2025-04-18 11:58 | XMS_ITS | Encounter Summary ---
Author Organization [facility] Address [address] [facility] [address] [place] [address] Phone Care Team Providers Care Real Estate Intern Name Role Phone Som Adkins MD Primary Care Provider [phone] Meliton Agudelo MD Primary Care Provider [phone] Lamine Navarro MD Unavailable [phone] Iain Hicks MD Unavailable [phone] Meliton Agudelo MD Unavailable Larry Anderson MD Unavailable [phone] Encounter Details Date Type Department Care Team (Late st Contact Info) Description 04/12/2017 Ancillary Orders [facility] [address] [place] [address] [place] [address] Ken Bingham MD [address] [place] [address] Social History Tobacco Use Types Packs/Day Years [...] EDT Office Visit [facility] [address] [place] [address] [place] [address] Meliton Agudelo MD 22 [facility], [address] [place] [address] documented as of this encounter Visit Diagnoses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documented in this encounter Additional Health Concerns Infection Onset Date Last Indicated Resolved Time CoV-Risk 01/22/2021 01/22/2021 02/01/2021 1:45 AM EDT COVID-19 05/05/2023 05/05/2023 05/26/2023 1:21 AM EST documented as of this encounter Care Teams Real Estate Intern Relationship Specialty Start Date End Date JedSom MD [address] [place] [address] [address] [place] [address] [email or web address] PCP - General Internal Medicine 05/26/17 11/04/21 Meliton Agudelo MD [address] [place] [address], [address] [place] [address] PCP - General Internal Medicine 11/05/21 Lamine Navarro MD [address] [place] [address] Gastroenterology 11/05/21 Iain Hicks MD [address] [place] [address] [email or web address] Ophthalmology 07/01/22 Meliton Agudelo MD [address] [place] [address], [address] [place] [address] Insurance Assigned Provider 09/27/23 Larry Anderson MD [address] [place] [address] Otolaryngology 11/10/23 documented as of this encounter Additional Source Comments The information contained in this document represents components of the legal health record. It is not the complete legal health record.[facility]
--- OUTSIDE RECORDS SUMMARY | 2025-04-18 11:58 | XMS_ITS | Encounter Summary ---
Author Organization [facility] Address [address] [facility] [address] [place] [address] Phone Care Team Providers Care Manager Integrity Name Role Phone Meliton Agudelo MD Primary Care Provider [phone] Lamine Navarro MD Unavailable [phone] Iain Hicks MD Unavailable [phone] Meliton Agudelo MD Unavailable [phone] Larry Anderson MD Unavailable Encounter Details Date Type Department Care Team (Late st Contact Info) Description 03/19/2022 Procedure Pass [facility], [facility] [address] [place] [address] Social History Tobacco Use Types Packs/Day Years [...] high school, GED, job training, learning the Finnish language, technical skills, or developing parenting skills)? 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 documented as of this encounter Plan of Treatment Upcoming Encounters Date Type Department Care Team (Late st Contact Info) Description 11/15/2025 8:30 AM EDT Office Visit [facility] [address] [place] [address] Meliton Agudelo MD [address] [place] [address], [address] [place] [address] documented as of this encounter Visit Diagnoses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documented in this encounter Additional Health Concerns Infection Onset Date Last Indicated Resolved Time COVID-19 05/05/2023 05/05/2023 05/26/2023 1:21 AM EST Assessment Noted Time PHQ-2 Depression Total Score: 0 11/06/19 9:20 AM EDT documented as of this encounter Care Teams Manager Integrity Relationship Specialty Start Date End Date Meliton Agudelo MD [address] [place] [address], [address] [place] [address] PCP - General Internal Medicine 11/05/21 Lamine Navarro MD [address] [place] [address] Gastroenterology 11/05/21 Iain Hicks MD [address] [place] [address], [address] [place], [place] [address] Ophthalmology 07/01/22 Meliton Agudelo MD [address] [place] [address], [address] [place] [address] [email or web address] Insurance Assigned Provider 09/27/23 Larry Anderson MD [address] [place] [address] [address] [place] [address] Otolaryngology 11/10/23 documented as of this encounter Additional Source Comments The information contained in this document represents components of the legal health record. It is not the complete legal health record.[facility]
--- OUTSIDE RECORDS SUMMARY | 2025-04-18 11:58 | XMS_ITS | Encounter Summary ---
Author Organization [facility] Address [address] [facility] [address] [place] [address] Phone Care Team Providers Care Boring Machine Operator Vertical Name Role Phone Som Adkins MD Primary Care Provider [phone] Meliton Agudelo MD Primary Care Provider [phone] Lamine Navarro MD Unavailable [phone] Iain Hicks MD Unavailable [phone] Meliton Agudelo MD Unavailable [phone] Larry Anderson MD Unavailable Encounter Details Date Type Department Care Team (Late st Contact Info) Description 03/01/2019 Ancillary Orders Virtual Department 30 [place] [address] Som Adkins MD 264 [facility] [address] [place] [address] [email or web address] Social History Tobacco [...] 8:30 AM EDT Office Visit [facility] [address] [place] [address] Meliton Agudelo MD [address] [place] [address], [address] [place] [address] [email or web address] documented as of this encounter Results * [...] documented as of this encounter Care Teams Boring Machine Operator Vertical Relationship Specialty Start Date End Date Som Adkins MD [address] [place] [address] [address] [place] [address] [email or web address] PCP - General Internal Medicine 05/26/17 11/04/21 Meliton Agudelo MD [address] [place] [address], [address] [place] [address] PCP - General Internal Medicine 11/05/21 Lamine Navarro MD [address] [place] [address] Gastroenterology 11/05/21 Iain Hicks MD [address] [place] [address], [address] [address] Ophthalmology 07/01/22 Meliton Agudelo MD [address] [place] [address], [address] [place] [address] Insurance Assigned Provider 09/27/23 Larry Anderson MD [address] [place] [address] Otolaryngology 11/10/23 documented as of this encounter Additional Source Comments The information contained in this document represents components of the legal health record. It is not the complete legal health record.[facility]
--- OUTSIDE RECORDS SUMMARY | 2025-04-18 11:58 | XMS_ITS | Encounter Summary ---
Author Organization [facility] Address [address] [facility] [address] [place] [address] Phone Care Team Providers Care Human Resources Assistant Name Role Phone Meliton Agudelo MD Primary Care Provider [phone] Lamine Navarro MD Unavailable [phone] Iain Hicks MD Unavailable [phone] Meliton Agudelo MD Unavailable [phone] Larry Anderson MD Unavailable Encounter Details Date Type Department Care Team (Latest Contact Info) Description 04/09/2023 Transcribe Orders Virtual Department 30 [place], [place] [id number] Meliton Agudelo MD 22 [facility], [address] [place] [address] [email or web address] Encounter for screening mammogram for [...] high school, GED, job training, learning the Malian language, technical skills, or developing parenting skills)? 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 documented as of this encounter Plan of Treatment Upcoming Encounters Date Type Department Care Team (Late st Contact Info) Description 11/15/2025 8:30 AM EDT Office Visit [facility] [address] [place] [address] Meliton Agudelo MD 22 [facility], [address] [place] [address] documented as of this encounter Results * [...] documented as of this encounter Care Teams Human Resources Assistant Relationship Specialty Start Date End Date Meliton Agudelo MD [address] [place] [address], [address] [place] [address] PCP - General Internal Medicine 11/05/21 Lamine Navarro MD [address] [place] [address] Gastroenterology 11/05/21 Iain Hicks MD [address] [place] [address], [address] [place], [place] [address] [email or web address] Ophthalmology 07/01/22 Meliton Agudelo MD [address] [place] [address], [address] [place] [address] [email or web address] Insurance Assigned Provider 09/27/23 Larry Anderson MD [address] [place] [address] [place] [address] Otolaryngology 11/10/23 documented as of this encounter Additional Source Comments The information contained in this document represents components of the legal health record. It is not the complete legal health record.[facility]
--- OUTSIDE RECORDS SUMMARY | 2025-04-18 11:58 | XMS_ITS | Encounter Summary ---
Author Organization [facility] Address [address] [facility] [address] [place] [address] Phone Care Team Providers Care Superintendent Colliery Name Role Phone Meliton Agudelo MD Primary Care Provider [phone] Lamine Navarro MD Unavailable [phone] Iani Hicks MD Unavailable [phone] Meliton Agudelo MD Unavailable [phone] Larry Anderson MD Unavailable [phone] Encounter Details Date Type Department Care Team (Late st Contact Info) Description 08/25/2023 Procedure Pass [facility] 30 [place] [address] Social History Tobacco Use Types Packs/Day Years [...] high school, GED, job training, learning the North Korean language, technical skills, or developing parenting skills)? 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 documented as of this encounter Plan of Treatment Upcoming Encounters Date Type Department Care Team (Late st Contact Info) Description 11/15/2025 8:30 AM EDT Office Visit [facility] [address] [place] [address] [place] [address] Meliton Agudelo MD [address] [place] [address], [address] [place] [address] [email or web address] documented as of this encounter Visit Diagnoses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documented in this encounter Additional Health Concerns Assessment Noted Time PHQ-2 Depression Total Score: 0 11/05/19 23 9:02 AM EDT documented as of this encounter Care Teams Superintendent Colliery Relationship Specialty Start Date End Date Meliton Agudelo MD [address] [place] [address], [address] [place] [address] PCP - General Internal Medicine 11/05/21 Lamine Navarro MD [address] [place] [address] Gastroenterology 11/05/21 Iain Hicks MD [address] [place] [address], [address] [place] [address] [email or web address] Ophthalmology 07/01/22 Meliton Agudelo MD [address] [place] [address], [address] [place] [address] [email or web address] Insurance Assigned Provider 09/27/23 Larry Anderson MD [address] [place] [address] [address] [place] [address] Otolaryngology 11/10/23 documented as of this encounter Additional Source Comments The information contained in this document represents components of the legal health record. It is not the complete legal health record.[facility]
--- OUTSIDE RECORDS SUMMARY | 2025-04-18 11:58 | XMS_ITS | Encounter Summary ---
Author Organization [facility] Address [address] [facility] [address] [place] [address] Phone Care Team Providers Care Contracting Executive Name Role Phone Meliton Agudelo MD Primary Care Provider [phone] Lamine Navarro MD Unavailable [phone] Iain Hicks MD Unavailable [phone] Meliton Agudelo MD Unavailable [phone] Larry Anderson MD Unavailable [phone] Encounter Details Date Type Department Care Team (Late st Contact Info) Description 04/09/2023 Procedure Pass [facility], [facility] [address] [place] [address] Social History Tobacco Use Types Packs/Day Years [...] high school, GED, job training, learning the Croatian language, technical skills, or developing parenting skills)? 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 documented as of this encounter Plan of Treatment Upcoming Encounters Date Type Department Care Team (Late st Contact Info) Description 11/15/2025 8:30 AM EDT Office Visit [facility] [address] [place] [address] [place] [address] Meliton Agudelo MD [address] [place] [address], [address] [place] [address] [email or web address] documented as of this encounter Visit Diagnoses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documented in this encounter Additional Health Concerns Infection Onset Date Last Indicated Resolved Time COVID-19 05/05/2023 05/05/2023 05/26/2023 1:21 AM EST Assessment Noted Time PHQ-2 Depression Total Score: 0 11/05/19 9:02 AM EDT documented as of this encounter Care Teams Contracting Executive Relationship Specialty Start Date End Date Meliton Agudelo MD [address] [place] [address], [address] [place] [address] [email or web address] PCP - General Internal Medicine 11/05/21 Lamine Navarro MD [address] [place] [address] Gastroenterology 11/05/21 Iain Hicks MD [address] [place] [address], [address] [place] [address] [email or web address] Ophthalmology 07/01/22 Meliton Agudelo MD [address] [place] [address], [address] [place] [address] [email or web address] Insurance Assigned Provider 09/27/23 Larry Anderson MD [address] [place] [address] Otolaryngology 11/10/23 documented as of this encounter Additional Source Comments The information contained in this document represents components of the legal health record. It is not the complete legal health record.[facility]
--- OUTSIDE RECORDS SUMMARY | 2025-04-18 11:58 | XMS_ITS | Encounter Summary ---
Author Organization [facility] Address [address] [facility] [address] [place] [address] Phone Care Team Providers Care Payroll Auditor Name Role Phone Som Adkins MD Primary Care Provider Deidra Agudelo MD Primary Care Provider [phone] Lamine Navarro MD Unavailable [phone] Iain Hicks MD Unavailable [phone] Deidra Agudelo MD Unavailable [phone] Larry Anderson MD Unavailable Encounter Details Date Type Department Care Team (Late st Contact Info) Description 04/12/2017 Ancillary Orders [facility], [facility] 30 [place] [address] Ken Bingham MD 61 [place] [address] Visit for screening mammogram Social History Tobacco [...] Description 11/15/2025 8:30 AM EDT Office Visit [address] [place] [address] Deidra Agudelo MD 22 [facility], [address] [place] [address] [email or web address] documented as of this encounter Results * [...] lowers the sensitivity of mammography. POS - [id number] Narrative 05/26/2017 7:56 AM EST 71-year-old female [...] whichlowers the sensitivity of mammography. POS - [id number] Ken Bingham MD IMG MG EXAMS Final Result documented in this encounter Visit Diagnoses Diagnosis Visit for screening mammogram Visit for screening mammogram documented in this encounter Additional Health Concerns Infection Onset Date Last Indicated Resolved Time CoV-Risk 01/22/2021 01/22/2021 02/01/2021 1:45 AM EDT COVID-19 05/05/2023 05/05/2023 05/26/2023 1:21 AM EST documented as of this encounter Care Teams Payroll Auditor Relationship Specialty Start Date End Date Jed, Som Beaver MD [address] [place] [address] [address] [place] [address] [email or web address] PCP - General Internal Medicine 05/26/17 11/04/21 Deidra Agudelo MD [address] [place] [address] [address] [place] [address] [email or web address] PCP - General Internal Medicine 11/05/21 Lamine Navarro MD [address] [place] [address] Gastroenterology 11/05/21 Iain Hicks MD [address] [place] [address] [email or web address] Ophthalmology 07/01/22 Deidra Agudelo MD [address] [place] [address], [address] [place] [address] [email or web address] Insurance Assigned Provider 09/27/23 Larry Anderson MD [address] [place] [address] Otolaryngology 11/10/23 documented as of this encounter Additional Source Comments The information contained in this document represents components of the legal health record. It is not the complete legal health record.[facility]
--- OUTSIDE RECORDS SUMMARY | 2025-04-18 11:58 | XMS_ITS | Encounter Summary ---
Author Organization [facility] Address [address] [facility] [address] [place] [address] Phone Care Team Providers Care Billing Administrator Name Role Phone Som Adkins MD Primary Care Provider [phone] Meliton Agudelo MD Primary Care Provider [phone] Lamine Navarro MD Unavailable [phone] Iain Hicks MD Unavailable [phone] Meliton Agudelo MD Unavailable [phone] Larry Anderson MD Unavailable Encounter Details Date Type Department Care Team (Late st Contact Info) Description 11/04/2017 Ancillary Orders Virtual Department 30 [place] [address] Som Adkins MD [address] [facility] [address] [place] [address] [email or web address] Breast screening; Trochanteric bursitis of left hip [...] Description 11/15/2025 8:30 AM EDT Office Visit [facility] [address] [place] [address] Meliton Agudelo MD [address] [place] [address], [address] [place] [address] [email or web address] documented as of this encounter Results * [...] lowers the sensitivity of mammography. POS - [id number] Narrative 05/27/2018 9:14 AM EST STUDY: Bilateral [...] whichlowers the sensitivity of mammography. POS - [id number] us Som Adkins MD IMG MG EXAMS [...] documented as of this encounter Care Teams Billing Administrator Relationship Specialty Start Date End Date JedSom MD [address] [place] [address] [address] [place] [address] [email or web address] PCP - General Internal Medicine 05/26/17 11/04/21 Meliton Agudelo MD [address] [place] [address], [address] [place] [address] PCP - General Internal Medicine 11/05/21 Lamine Navarro MD [address] [place] [address] Gastroenterology 11/05/21 Iain Hicks MD [address] [place] [address] Ophthalmology 07/01/22 Meliton Agudelo MD [address] [place] [address], [address] [place] [address] Insurance Assigned Provider 09/27/23 Larry Anderson MD [address] [place] [address] Otolaryngology 11/10/23 documented as of this encounter Additional Source Comments The information contained in this document represents components of the legal health record. It is not the complete legal health record.[facility]
--- OUTSIDE RECORDS SUMMARY | 2025-04-18 11:58 | XMS_ITS | Encounter Summary ---
Author Organization [facility] Address 399 [facility] [address] [place] [address] Phone Care Team Providers Care Solid Waste Truck Driver Name Role Phone Meliton Agudelo MD Primary Care Provider [phone] Lamine Navarro MD Unavailable [phone] Iain Hicks MD Unavailable Meliton Agudelo MD Unavailable [phone] Larry Anderson MD Unavailable [phone] Encounter Details Date Type Department Care Team (Late st Contact Info) Description 08/25/2023 Ancillary Orders [facility] 30 [place], [place] [id number] Meliton Agudelo MD 22 [facility], [address] [place] [address] [email or web address] Abnormal finding on mammography (Primary [...] high school, GED, job training, learning the Serbian language, technical skills, or developing parenting skills)? 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 documented as of this encounter Plan of Treatment Upcoming Encounters Date Type Department Care Team (Late st Contact Info) Description 11/15/2025 8:30 AM EDT Office Visit [facility] [place] [facility] [address] [place] [address] [place] [address] Meliton Agudelo MD 22 [facility], [address] [place] [address] documented as of this encounter Results * [...] documented as of this encounter Care Teams Solid Waste Truck Driver Relationship Specialty Start Date End Date Meliton Agudelo MD [address] [place] [address], [address] [place] [address] PCP - General Internal Medicine 11/05/21 Lamine Navarro MD [address] [place] [address] Gastroenterology 11/05/21 Iain Hicks MD [address] [place] [address], [address] [address] Ophthalmology 07/01/22 Meliton Agudelo MD [address] [place] [address], [address] [place] [address] [email or web address] Insurance Assigned Provider 09/27/23 Larry Anderson MD [address] [place] [address] [place] [address] Otolaryngology 11/10/23 documented as of this encounter Additional Source Comments The information contained in this document represents components of the legal health record. It is not the complete legal health record.[facility]
--- OUTSIDE RECORDS SUMMARY | 2025-04-18 11:58 | XMS_ITS | Patient Health Record ---
Author Organization [facility] Address [address] [place] [address] Care Team Providers Care Securities Lending Trader Name Role Phone Magnus WATSON, Meliton Primary Care Provider Ra Velez Unavailable [phone] Allergies Allergen (clinical drug ingredient) Drug/Non Drug [...] a day; Duration: 30 day(s) Active Nystatin 888421 UNIT 1 tablet Orally every 8 hrs; [...] Status Risk Notes Problem Acquired hallux rigidus (5377456) Hallux rigidus, left foot (M20.22) Active confirmed Problem Acquired hallux rigidus (3891341) Hallux rigidus, right foot (M20.21) Active confirmed Plan Of Treatment Pending Test Test Name Order Date X ray : Foot, right 3V 03/15/2019 Insurance Providers Payer Name Payer Address Payer Phone Subscriber Number Group Number Insured Name Patient Relationship to Insured Coverage Start Date Coverage End Date Medicare National Govt Sv[employer] Inc [address] [place] [address] [id number] Tamara Bernal Self - patient is the insured [facility] [address] [place] [address] [phone] [id number] Tamara Bernal Self - patient is the insured Medical (General) History Medical History History ICD Code Measles Mumps Supraventricular tachycardia Surgical History Surgery Date(Month/Year) appendectomy ovarian surgery- right removed eye surgery-Blocked tear duct right eye 02/08/2019 eye surgery- blocked tear duct-right eye 03/24/2019
--- OUTSIDE RECORDS SUMMARY | 2025-04-18 11:58 | XMS_ITS | Encounter Summary ---
Author Organization [facility] Address 399 [facility] [address] [place] [address] Phone Care Team Providers Care Cash Crop Farmer Name Role Phone Som Adkins MD Primary Care Provider Meliton Agudelo MD Primary Care Provider [phone] Lamine Navarro MD Unavailable [phone] Iain Hicks MD Unavailable [phone] Meliton Agudelo MD Unavailable Larry Anderson MD Unavailable Encounter Details Date Type Department Care Team (Late st Contact Info) Description 03/06/2020 Ancillary Orders Virtual Department 30 [place] [address] Som Adkins MD 264 [facility] [address] [place] [address] [email or web address] Breast screening Social History Tobacco [...] 8:30 AM EDT Office Visit [facility] [address] [place] [address] Meliton Agudelo MD 22 [facility], [address] [place] [address] [email or web address] documented as of this encounter Results * [...] documented as of this encounter Care Teams Cash Crop Farmer Relationship Specialty Start Date End Date Som Adkins MD [address] [place] [address] [address] [place] [address] [email or web address] PCP - General Internal Medicine 05/26/17 11/04/21 Meliton Agudelo MD [address] [place] [address] PCP - General Internal Medicine 11/05/21 Lamine Navarro MD [address] [place] [address] Gastroenterology 11/05/21 Iain Hicks MD [address] [place] [address] [email or web address] Ophthalmology 07/01/22 Meliton Agudelo MD [address] [place] [address] Insurance Assigned Provider 09/27/23 Larry Anderson MD [address] [place] [address] Otolaryngology 11/10/23 documented as of this encounter Additional Source Comments The information contained in this document represents components of the legal health record. It is not the complete legal health record.[facility]
--- OUTSIDE RECORDS SUMMARY | 2025-04-18 11:59 | XMS_ITS | Encounter Summary ---
Author Organization [facility] Address 399 [facility] [address] [place] [address] Phone Care Team Providers Care Military Technician Name Role Phone Som Adkins MD Primary Care Provider Meliton Agudelo MD Primary Care Provider [phone] Lamine Navarro MD Unavailable [phone] Iain Hicks MD Unavailable [phone] Meliton Agudelo MD Unavailable [phone] Larry Anderson MD Unavailable [phone] Encounter Details Date Type Department Care Team (Late st Contact Info) Description 03/09/2021 Procedure Pass [address] [address] Social History Tobacco Use Types Packs/Day Years [...] 11/15/2025 8:30 AM EDT Office Visit [facility] [address] [place] [address] [place] [address] Meliton Agudelo MD 22 [facility], [address] [place] [address] documented as of this encounter Visit Diagnoses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documented in this encounter Additional Health Concerns Infection Onset Date Last Indicated Resolved Time COVID-19 05/05/2023 05/05/2023 05/26/2023 1:21 AM EST documented as of this encounter Care Teams Military Technician Relationship Specialty Start Date End Date JedSom MD [address] [place] [address] [address] [place] [address] [email or web address] PCP - General Internal Medicine 05/26/17 11/04/21 Meliton Agudelo MD [address] [place] [address], [address] [place] [address] PCP - General Internal Medicine 11/05/21 Lamine Navarro MD [address] [place] [address] Gastroenterology 11/05/21 Iain Hicks MD [address] [place] [address] Ophthalmology 07/01/22 Meliton Agudelo MD [address] [place] [address] [place] [address] Insurance Assigned Provider 09/27/23 Larry Anderson MD [address] [place] [address] Otolaryngology 11/10/23 documented as of this encounter Additional Source Comments The information contained in this document represents components of the legal health record. It is not the complete legal health record.[facility]
--- OUTSIDE RECORDS SUMMARY | 2025-04-18 11:59 | XMS_ITS | Clinical Summary ---
Author Organization [facility] Address [address] [address] Phone Care Team Providers Care Supervisor Screen Printing Name Role Phone Meliton Agudelo MD Primary Care Provider [phone] Lamine Navarro MD Unavailable [phone] Iain Hicks MD Unavailable [phone] Meliton Agudelo MD Unavailable [phone] Larry Anderson MD Unavailable Allergies Active Allergy [...] to plan. She has follow up with [facility] in early June. Will call them if [...] her cataract surgery. Sebaceous cyst of labia 01/22/202105/23 Immunizations Immunization Administration Dates Next Due COVID-19 [...] your housing situation today? 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 [...] Description 11/15/2025 8:30 AM EDT Office Visit [facility] [address] [place] [address] Meliton Agudelo MD 22 [facility], [address] [place] [address] [email or web address] Health Maintenance Due Date Last Done Comments HEPATITIS C SCREENING 1965 RSV VACCINE (1 - 1-dose 75+ series) 2022 Adult Td,Tdap Booster 07/01/2023 07/01/2013 INFLUENZA VACCINE (#1) 2025 , 04/23/2023, 04/23/2023, Additional history exists COVID-19 VACCINE (2024- season) 2025 03/24/2023, 04/15/2022, 10/29/2021, Additional history [...] (10/30/2022 8:37 AM EDT) HDL 69 mg/dL [facility] Comment: Interpretation <40 mg/dL: Low HDL cholesterol (major risk factor for CHD) Greater than or equal to 60 mg/dL: High HDL cholesterol ( negative risk factor for CHD) HDL - cholesterol is affected by a number of factors, e.g. smoking, excerise, hormones, sex and age. CHOLESTEROL 195 0 - 240 mg/dL [facility] TRIGLYCERIDES 40 30 - 160 mg/dL [facility] LDL 118 50 - 129 mg/dL [facility] Comment: LDL levels in terms of risk for coronary heart disease: <100 mg/dL: Optimal 100-129 mg/dL: Near or above optimal 130-159 mg/dL: Borderline high 160-189 mg/dL: High >190 mg/dL: Very High CARDIAC RISK RATIO 2.8(L) 3.3 - 4.4 [facility] 10/30/2022 8:37 AM EDT 10/30/2022 8:42 AM EDT us Meliton Agudelo MD LAB BLOOD ORDERABLES Final Result [facility] 30 [place] [address] from Last 3 Months or Most Recently Relevant to Health Maintenance Insurance MEDICARE PART A & B Member Subscriber Plan / Payer (Ef fective 2014-Present) Name:Tamara Bernal Member ID:[id number] Relation to Subscriber:Self Name:Tamara Bernal Subscriber ID:[id number] Payer ID:[id number] Group ID:Not on file Type:Medicare Address: [employer] [address] [place] [address] [place] [address] MEDICARE SUPPLEMENT MEDICARE PART A & B [facility] MEDICARE SUPPLEMENT MEDICARE PART A & B [employer] MEDICARE SUPPLEMENT MEDICARE PART A & B [employer] MEDICARE SUPPLEMENT MEDICARE PART A & B [facility] [place] [address] MEDICARE PART A & B [facility]ION MEDICARE SUPPLEMENT MEDICARE PART A & B [facility] MEDICARE SUPPLEMENT MEDICARE PART A & B Member Subscriber Plan / Payer ( fective 2014-Present) Name:Tamara Bernal Member ID:[id number] Relation to Subscriber:Self Name:Tamara Bernal Subscriber ID:[id number] Payer ID:[id number] Group ID:Not on file Type:Medicare Address: [employer] [address] [place] [address] [place] [address] EXTENSION MEDICARE SUPPLEMENT MEDICARE PART A & B [facility] [employer]ION MEDICARE SUPPLEMENT Care Teams Supervisor Screen Printing Relationship Specialty Start Date End Date Meliton Agudelo MD [address] [place] [address], [address] [place] [address] PCP - General Internal Medicine 11/05/21 Lamine Navarro MD [address] [place] [address] Gastroenterology 11/05/21 Iain Hicks MD [address] [place] [address], [address] [place] [address] Ophthalmology 07/01/22 Meliton Agudelo MD [address] [place] [address], [address] [place] [address] Insurance Assigned Provider 09/27/23 Larry Anderson MD [address] [place] [address] Otolaryngology 11/10/23 Additional Source Comments The information contained in this document represents components of the legal health record. It is not the complete legal health record.[facility]
--- OUTSIDE RECORDS SUMMARY | 2025-04-18 11:59 | XMS_ITS | Encounter Summary ---
Author Organization [facility] Address [address] [facility] [address] [place] [address] Phone Care Team Providers Care Liquor Commissioner Name Role Phone Meliton Agudelo MD Primary Care Provider [phone] Lamine Navarro MD Unavailable [phone] Iain Hicks MD Unavailable [phone] Meliton Agudelo MD Unavailable [phone] Larry Anderson MD Unavailable [phone] Encounter Details Date Type Department Care Team (Late st Contact Info) Description 04/12/2024 Procedure Pass [facility], [facility] [address] [place] [address] Social History Tobacco Use Types Packs/Day Years [...] 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, 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 documented as of this encounter Plan of Treatment Upcoming Encounters Date Type Department Care Team (Late st Contact Info) Description 11/15/2025 8:30 AM EDT Office Visit [facility] [place] [facility] [address] [place] [address] Meliton Agudelo MD 22 [facility], [address] [place] [address] documented as of this encounter Visit Diagnoses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documented in this encounter Additional Health Concerns Assessment Noted Time PHQ-2 Depression Total Score: 0 11/10/19 8:49 AM EDT documented as of this encounter Care Teams Liquor Commissioner Relationship Specialty Start Date End Date Meliton Agudelo MD [address] [place] [address], [address] [place] [address] PCP - General Internal Medicine 11/05/21 Lamine Navarro MD [address] [place] [address] Gastroenterology 11/05/21 Iain Hicks MD [address] [place] [address], [address] [address] Ophthalmology 07/01/22 Meliton Agudelo MD [address] [place] [address], [address] [place] [address] Insurance Assigned Provider 09/27/23 Larry Anderson MD [address] [place] [address] Otolaryngology 11/10/23 documented as of this encounter Additional Source Comments The information contained in this document represents components of the legal health record. It is not the complete legal health record.[facility]
--- OUTSIDE RECORDS SUMMARY | 2025-04-18 11:59 | XMS_ITS | Encounter Summary ---
Author Organization [facility] Address [address] [facility] [address] [place] [address] Phone Care Team Providers Care Geodetic Advisor Name Role Phone Som Adkins MD Primary Care Provider [phone] Meliton Agudelo MD Primary Care Provider [phone] Lamine Navarro MD Unavailable [phone] Iain Hicks MD Unavailable [phone] Meliton Agudelo MD Unavailable [phone] Larry Anderson MD Unavailable [phone] Reason for Referral * Physical Therapy (Routine) - Closed Specialty Diagnoses / Procedures Referred By Geoff lee Referred To Contact Physical Therapy Diagnoses Encounter for rehabilitation Som Adkins MD Phone: tel: fax: mailto:[email or web address] [address] [place] [address] Phone: tel: Referral ID Status Reason Start Date Expiration Date Visits Re quested Visits Authorized [id number] Closed 11/25/2017 06/22/2018 99 [phone] Encounter Details Date Type Department Care Team (Latest Contact Info) Description 11/04/2017 Transcribe Orders [facility] [address] [place] [address] Som Adkins MD [address] [place] [address] [address] [email or web address] Encounter for rehabilitation (Primary Dx) Social History [...] Description 11/15/2025 8:30 AM EDT Office Visit [address] [address] Meliton Agudelo MD [address] [place] [address], [address] [place] [address] [email or web address] Scheduled Referrals Name Type Priority Associated Diagnoses Orde r Schedule Ambulatory referral to [facility] Physical Therapy Outpatient Referral Routine Encounter for rehabilitation Ordered: 11/04/2017 documented as of this encounter Visit Diagnoses Diagnosis Encounter for rehabilitation- Primary documented in this encounter Additional Health Concerns Infection Onset Date Last Indicated Resolved Time CoV-Risk 01/22/2021 01/22/2021 02/01/2021 1:45 AM EDT COVID-19 05/05/2023 05/05/2023 05/26/2023 1:21 AM EST documented as of this encounter Care Teams Geodetic Advisor Relationship Specialty Start Date End Date Jed, Som Beaver MD [address] [place] [address] [email or web address] PCP - General Internal Medicine 05/26/17 11/04/21 Meliton Agudelo MD [address] [place] [address], [address] [place] [address] [email or web address] PCP - General Internal Medicine 11/05/21 Lamine Navarro MD [address] [place] [address] Gastroenterology 11/05/21 Iain Hicks MD [address] [place] [address], [address] [place] [address] Ophthalmology 07/01/22 Meliton Agudelo MD [address] [place] [address], [address] [place] [address] Insurance Assigned Provider 09/27/23 Larry Anderson MD [address] [place] [address] Otolaryngology 11/10/23 documented as of this encounter Additional Source Comments The information contained in this document represents components of the legal health record. It is not the complete legal health record.[facility]
--- OUTSIDE RECORDS SUMMARY | 2025-04-18 11:59 | XMS_ITS | Clinical Summary ---
Author Organization [facility] [address] [facility] Address [address] [place] [address] Phone Care Team Providers Care Traffic Warehouse Supervisor Name Role Phone Meliton Agudelo MD Primary Care Provider [phone] Allergies Active Allergy Reactions Criticality Noted Date Comments Azithromycin Nausea And Vomiting 04/20/2018 Erythromycin 08/26/2024 Levofloxacin 08/26/2024 Sulfamethoxazole-Trimethoprim 2024 Medications multivitamin-mi f-kmvv-RJ-vit K 45 mg iron- 800 mcg-120 mcg [...] Noted Date Diagnosed Date SVT (supraventricular tachycardia) (CMS/[facility] V24) 08/26/2024 Irritable bowel syndrome [...] Recently Relevant to Health Maintenance Insurance MEDICARE [facility] Care Teams Traffic Warehouse Supervisor Relationship Specialty Start Date End Date Meliton Agudelo MD [address] [place] [address], [address] [place] [address] PCP - General Internal Medicine 08/26/24
== END 2025-04-18 10:05 | disposition home or self-care (01) ==
LOC: HO.HMGAL 10:04
PROVIDERS: PCP Internal Medicine; Visit Provider Registered Nurse Emergency
DX: J30.89 Other allergic rhinitis (principal)
CPT/HCPCS: 95117; 95165

== ENCOUNTER 2025-05-04 14:05 | Outpatient (AMB) | payer MEDICARE, OTHER, SELFPAY ==
--- OUTSIDE RECORDS SUMMARY | 2025-05-04 17:21 | XMS_ITS | Encounter Summary ---
Author Organization [facility] Address [address] [facility] [address] [place] [address] Phone Care Team Providers Care Die Out Worker Name Role Phone Som Adkins MD Primary Care Provider [phone] Meliton Agudelo MD Primary Care Provider [phone] Lamine Navarro MD Unavailable [phone] Iain Hicks MD Unavailable [phone] Meliton Agudelo MD Unavailable [phone] Larry Anderson MD Unavailable Encounter Details Date Type Department Care Team (Late st Contact Info) Description 03/09/2021 Procedure Pass [address] [address] Social History Tobacco Use Types Packs/Day Years [...] Description 11/15/2025 8:30 AM EDT Office Visit [facility] [address] [place] [address] [place] [address] Meliton Agudelo MD 22 [facility], [address] [place] [address] documented as of this encounter Visit Diagnoses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documented in this encounter Additional Health Concerns Infection Onset Date Last Indicated Resolved Time COVID-19 05/05/2023 05/05/2023 05/26/2023 1:21 AM EST documented as of this encounter Care Teams Die Out Worker Relationship Specialty Start Date End Date JedSom MD [address] [place] [address] [address] [place] [address] [email or web address] PCP - General Internal Medicine 05/26/17 11/04/21 Meliton Agudelo MD [address] [place] [address], [address] [place] [address] PCP - General Internal Medicine 11/05/21 Lamine Navarro MD [address] [place] [address] Gastroenterology 11/05/21 Iain Hicks MD [address] [place] [address] Ophthalmology 07/01/22 Meliton Agudelo MD [address] [place] [address] [place] [address] Insurance Assigned Provider 09/27/23 Larry Anderson MD [address] [place] [address] Otolaryngology 11/10/23 documented as of this encounter Additional Source Comments The information contained in this document represents components of the legal health record. It is not the complete legal health record.[facility]
--- OUTSIDE RECORDS SUMMARY | 2025-05-04 17:21 | XMS_ITS | Encounter Summary ---
Author Organization [facility] Address [address] [facility] [address] [place] [address] Phone Care Team Providers Care Night Supervisor Name Role Phone Meliton Agudelo MD Primary Care Provider [phone] Lamine Navarro MD Unavailable [phone] Iain Hicks MD Unavailable [phone] Meliton Agudelo MD Unavailable [phone] Larry Anderson MD Unavailable [phone] Encounter Details Date Type Department Care Team (Late st Contact Info) Description 08/25/2023 Procedure Pass [employer] [address] [place] [address] Social History Tobacco Use Types Packs/Day Years [...] high school, GED, job training, learning the Yi language, technical skills, or developing parenting skills)? 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 documented as of this encounter Plan of Treatment Upcoming Encounters Date Type Department Care Team (Late st Contact Info) Description 11/15/2025 8:30 AM EDT Office Visit [facility] [address] [place] [address] [place] [address] Meliton Agudeol MD [address] [place] [address], [address] [place] [address] [email or web address] documented as of this encounter Visit Diagnoses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documented in this encounter Additional Health Concerns Assessment Noted Time PHQ-2 Depression Total Score: 0 11/05/19 23 9:02 AM EDT documented as of this encounter Care Teams Night Supervisor Relationship Specialty Start Date End Date Meliton Agudelo MD [address] [place] [address], [address] [place] [address] PCP - General Internal Medicine 11/05/21 Lamine Navarro MD [address] [place] [address] Gastroenterology 11/05/21 Iain Hicks MD [address] [place] [address], [address] [place] [address] [email or web address] Ophthalmology 07/01/22 Meliton Agudelo MD [address] [place] [address], [address] [place] [address] [email or web address] Insurance Assigned Provider 09/27/23 Larry Anderson MD [address] [place] [address] [address] [place] [address] Otolaryngology 11/10/23 documented as of this encounter Additional Source Comments The information contained in this document represents components of the legal health record. It is not the complete legal health record.[facility]
--- OUTSIDE RECORDS SUMMARY | 2025-05-04 17:21 | XMS_ITS | Encounter Summary ---
Author Organization [facility] Address [address] [facility] [address] [place] [address] Phone Care Team Providers Care Facility Planner Name Role Phone Som Adkins MD Primary Care Provider [phone] Meliton Agudelo MD Primary Care Provider [phone] Lamine Navarro MD Unavailable [phone] Iain Hicks MD Unavailable [phone] Meliton Agudelo MD Unavailable [phone] Larry Anderson MD Unavailable [phone] Encounter Details Date Type Department Care Team (Late st Contact Info) Description 03/06/2020 Ancillary Orders Virtual Department 30 [place] [address] Som Adkins MD 264 [facility] [address] [place] [address] [email or web address] Breast screening Social History Tobacco Use Types [...] 8:30 AM EDT Office Visit [facility] [address] [place] [address] Meliton Agudelo MD 22 [facility], [address] [place] [address] [email or web address] documented as of this encounter Results * [...] documented as of this encounter Care Teams Facility Planner Relationship Specialty Start Date End Date Som Adkins MD [address] [place] [address] [address] [place] [address] [email or web address] PCP - General Internal Medicine 05/26/17 11/04/21 Meliton Agudelo MD [address] [place] [address] PCP - General Internal Medicine 11/05/21 Lamine Navarro MD [address] [place] [address] Gastroenterology 11/05/21 Iain Hicks MD [address] [place] [address] [email or web address] Ophthalmology 07/01/22 Meliton Agudelo MD [address] [place] [address] Insurance Assigned Provider 09/27/23 Larry Anderson MD [address] [place] [address] Otolaryngology 11/10/23 documented as of this encounter Additional Source Comments The information contained in this document represents components of the legal health record. It is not the complete legal health record.[facility]
--- OUTSIDE RECORDS SUMMARY | 2025-05-04 17:21 | XMS_ITS | Encounter Summary ---
Author Organization [facility] Address [address] [facility] [address] [place] [address] Phone Care Team Providers Care Business Banking Officer Name Role Phone Som Adkins MD Primary Care Provider Meliton Agudelo MD Primary Care Provider [phone] Lamine Navarro MD Unavailable [phone] Iain Hicks MD Unavailable [phone] Meliton Agudelo MD Unavailable [phone] Larry Anderson MD Unavailable Encounter Details Date Type Department Care Team (Late st Contact Info) Description 11/04/2017 Ancillary Orders Virtual Department 30 [place] [address] Som Adkins MD 264 [facility] [address] [place] [address] [email or web address] Breast screening; Trochanteric bursitis of [...] EDT Office Visit [facility] [address] [place] [address] Meliton Agudelo MD [address] [place] [address], [address] [place] [address] [email or web address] documented as of this encounter Results * [...] lowers the sensitivity of mammography. POS - [id number] Narrative 05/27/2018 9:14 AM EST STUDY: Bilateral [...] whichlowers the sensitivity of mammography. POS - [id number] us Som Adkins MD IMG MG EXAMS [...] documented as of this encounter Care Teams Business Banking Officer Relationship Specialty Start Date End Date JedSom MD [address] [place] [address] [address] [place] [address] [email or web address] PCP - General Internal Medicine 05/26/17 11/04/21 Meliton Agudelo MD [address] [place] [address], [address] [place] [address] PCP - General Internal Medicine 11/05/21 Lamine Navarro MD [address] [place] [address] Gastroenterology 11/05/21 Iain Hicks MD [address] [place] [address] Ophthalmology 07/01/22 Meliton Agudelo MD [address] [place] [address], [address] [place] [address] Insurance Assigned Provider 09/27/23 Larry Anderson MD [address] [place] [address] Otolaryngology 11/10/23 documented as of this encounter Additional Source Comments The information contained in this document represents components of the legal health record. It is not the complete legal health record.[facility]
--- OUTSIDE RECORDS SUMMARY | 2025-05-04 17:21 | XMS_ITS | Encounter Summary ---
Author Organization [facility] Address [address] [facility] [address] [place] [address] Phone Care Team Providers Care Lens Marker Name Role Phone Meliton Agudelo MD Primary Care Provider [phone] Lamine Navarro MD Unavailable Iain Hicks MD Unavailable [phone] Meliton Agudelo MD Unavailable [phone] Larry Anderson MD Unavailable [phone] Encounter Details Date Type Department Care Team (Late st Contact Info) Description 04/12/2024 Procedure Pass [facility] 30 [place] [address] Social History Tobacco Use Types Packs/Day Years 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, [employer]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 documented as of this encounter Plan of Treatment Upcoming Encounters Date Type Department Care Team (Late st Contact Info) Description 11/15/2025 8:30 AM EDT Office Visit [facility] [place] [facility] [address] [place] [address] Meliton Agudelo MD 22 [facility], [address] [place] [address] documented as of this encounter Visit Diagnoses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documented in this encounter Additional Health Concerns Assessment Noted Time PHQ-2 Depression Total Score: 0 11/10/19 8:49 AM EDT documented as of this encounter Care Teams Lens Marker Relationship Specialty Start Date End Date Meliton Agudelo MD [address] [place] [address], [address] [place] [address] PCP - General Internal Medicine 11/05/21 Lamine Navarro MD [address] [place] [address] Gastroenterology 11/05/21 Iain Hicks MD [address] [place] [address], [address] [address] Ophthalmology 07/01/22 Meliton Agudelo MD [address] [place] [address], [address] [place] [address] Insurance Assigned Provider 09/27/23 Larry Anderson MD [address] [place] [address] Otolaryngology 11/10/23 documented as of this encounter Additional Source Comments The information contained in this document represents components of the legal health record. It is not the complete legal health record.[facility]
--- OUTSIDE RECORDS SUMMARY | 2025-05-04 17:21 | XMS_ITS | Encounter Summary ---
Author Organization [facility] Address [address] [facility] [address] [place] [address] Phone Care Team Providers Care Child Nutrition Director Name Role Phone Meliton Agudelo MD Primary Care Provider [phone] Lamine Navarro MD Unavailable [phone] Iain Hicks MD Unavailable [phone] Meliton Agudelo MD Unavailable [phone] Larry Anderson MD Unavailable [phone] Encounter Details Date Type Department Care Team (Late st Contact Info) Description 03/19/2022 Procedure Pass [facility], [facility] 30 [place] [address] Social History Tobacco Use Types Packs/Day Years [...] high school, GED, job training, learning the Lao language, technical skills, or developing parenting skills)? 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 documented as of this encounter Plan of Treatment Upcoming Encounters Date Type Department Care Team (Late st Contact Info) Description 11/15/2025 8:30 AM EDT Office Visit [facility] [address] [place] [address] Meliton Agudelo MD [address] [place] [address], [address] [place] [address] documented as of this encounter Visit Diagnoses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documented in this encounter Additional Health Concerns Infection Onset Date Last Indicated Resolved Time COVID-19 05/05/2023 05/05/2023 05/26/2023 1:21 AM EST Assessment Noted Time PHQ-2 Depression Total Score: 0 11/06/19 9:20 AM EDT documented as of this encounter Care Teams Child Nutrition Director Relationship Specialty Start Date End Date Meliton Agudelo MD [address] [place] [address], [address] [place] [address] PCP - General Internal Medicine 11/05/21 Lamine Navarro MD [address] [place] [address] Gastroenterology 11/05/21 Iain Hicks MD [address] [place] [address], [address] [place], [place] [address] Ophthalmology 07/01/22 Meliton Agudelo MD [address] [place] [address], [address] [place] [address] [email or web address] Insurance Assigned Provider 09/27/23 Larry Anderson MD [address] [place] [address] [address] [place] [address] Otolaryngology 11/10/23 documented as of this encounter Additional Source Comments The information contained in this document represents components of the legal health record. It is not the complete legal health record.[facility]
--- OUTSIDE RECORDS SUMMARY | 2025-05-04 17:21 | XMS_ITS | Encounter Summary ---
Author Organization [facility] Address [address] [facility] [address] [place] [address] Phone Care Team Providers Care Travel Counselor Name Role Phone Meliton Agudelo MD Primary Care Provider [phone] Lamine Navarro MD Unavailable [phone] Iain Hicks MD Unavailable [phone] Meliton Agudelo MD Unavailable [phone] Larry Anderson MD Unavailable Encounter Details Date Type Department Care Team (Latest Contact Info) Description 04/09/2023 Transcribe Orders Virtual Department 30 [place], [place] [id number] Meliton Agudelo MD 22 [facility], [address] [place] [address] [email or web address] Encounter for screening mammogram for [...] high school, GED, job training, learning the Burundian language, technical skills, or developing parenting skills)? 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 documented as of this encounter Plan of Treatment Upcoming Encounters Date Type Department Care Team (Late st Contact Info) Description 11/15/2025 8:30 AM EDT Office Visit [facility] [address] [place] [address] Meliton Agudelo MD 22 [facility], [address] [place] [address] documented as of this encounter Results * [...] documented as of this encounter Care Teams Travel Counselor Relationship Specialty Start Date End Date Meliton Agudelo MD [address] [place] [address], [address] [place] [address] PCP - General Internal Medicine 11/05/21 Lamine Navarro MD [address] [place] [address] Gastroenterology 11/05/21 Iain Hicks MD [address] [place] [address], [address] [place], [place] [address] [email or web address] Ophthalmology 07/01/22 Meliton Agudelo MD [address] [place] [address], [address] [place] [address] [email or web address] Insurance Assigned Provider 09/27/23 Larry Anderson MD [address] [place] [address] [place] [address] Otolaryngology 11/10/23 documented as of this encounter Additional Source Comments The information contained in this document represents components of the legal health record. It is not the complete legal health record.[facility]
--- OUTSIDE RECORDS SUMMARY | 2025-05-04 17:21 | XMS_ITS | Patient Health Record ---
Author [facility] Address [address] [place] [address] Care Team Providers Care Residential Coordinator Name Role Phone Magnus WATSON, Meliton Primary Care Provider Ra Velez Unavailable [phone] Allergies Allergen (clinical drug ingredient) Drug/Non Drug [...] a day; Duration: 30 day(s) Active Nystatin 528524 UNIT 1 tablet Orally every 8 hrs; [...] Status Risk Notes Problem Acquired hallux rigidus (2193484) Hallux rigidus, left foot (M20.22) Active confirmed Problem Acquired hallux rigidus (6625586) Hallux rigidus, right foot (M20.21) Active confirmed Plan Of Treatment Pending Test Test Name Order Date X ray : Foot, right 3V 03/15/2019 Insurance Providers Payer Name Payer Address Payer Phone Subscriber Number Group Number Insured Name Patient Relationship to Insured Coverage Start Date Coverage End Date Medicare National [employer] [address] [place] [address] [id number] Tamara Bernal Self - patient is the insured [facility] [address] [place] [address] [id number] Tamara Bernal Self - patient is the insured Medical (General) History Medical History History ICD Code Measles Mumps Supraventricular tachycardia Surgical History Surgery Date(Month/Year) appendectomy ovarian surgery- right removed eye surgery-Blocked tear duct right eye 02/08/2019 eye surgery- blocked tear duct-right eye 03/24/2019
--- OUTSIDE RECORDS SUMMARY | 2025-05-04 17:21 | XMS_ITS | Encounter Summary ---
Author Organization [facility] Address [address] [facility] [address] [place] [address] Phone Care Team Providers Care Homicide Squad Captain Name Role Phone Som Adkins MD Primary Care Provider Meliton Agudelo MD Primary Care Provider [phone] Lamine Navarro MD Unavailable [phone] Iain Hicks MD Unavailable [phone] Meliton Agudelo MD Unavailable [phone] Larry Anderson MD Unavailable Encounter Details Date Type Department Care Team (Late st Contact Info) Description 03/01/2019 Ancillary Orders Virtual Department 30 [place] [address] Som Adkins MD 264 [facility] [address] [place] [address] [email or web address] Breast screening Social History Tobacco [...] 8:30 AM EDT Office Visit [facility] [address] [place] [address] Meliton Agudelo MD [address] [place] [address], [address] [place] [address] [email or web address] documented as of this encounter Results * [...] documented as of this encounter Care Teams Homicide Squad Captain Relationship Specialty Start Date End Date Som Adkins MD [address] [place] [address] [address] [place] [address] [email or web address] PCP - General Internal Medicine 05/26/17 11/04/21 Meliton Agudelo MD [address] [place] [address], [address] [place] [address] [email or web address] PCP - General Internal Medicine 11/05/21 Lamine Navarro MD [address] [place] [address] Gastroenterology 11/05/21 aIin Hicks MD [address] [place] [address], [address] [address] Ophthalmology 07/01/22 Meliton Agudelo MD [address] [place] [address], [address] [place] [address] [email or web address] Insurance Assigned Provider 09/27/23 Larry Anderson MD [address] [place] [address] Otolaryngology 11/10/23 documented as of this encounter Additional Source Comments The information contained in this document represents components of the legal health record. It is not the complete legal health record.[facility]
--- OUTSIDE RECORDS SUMMARY | 2025-05-04 17:21 | XMS_ITS | Encounter Summary ---
Author Organization [facility] Address [address] [facility] [address] [place] [address] Phone Care Team Providers Care Director Of Education Name Role Phone Meliton Agudelo MD Primary Care Provider [phone] Lamine Navarro MD Unavailable [phone] Iain Hicks MD Unavailable [phone] Meliton Agudelo MD Unavailable [phone] Larry Anderson MD Unavailable [phone] Encounter Details Date Type Department Care Team (Late st Contact Info) Description 08/25/2023 Ancillary Orders [facility] 30 [place], [place] [phone] Meliton Agudelo MD 22 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, [address] [place] [address] documented as of this encounter Results * [...] as of this encounter Care Teams Director Of Education Relationship Specialty Start Date End Date Meliton Agudelo MD [address] [place] [address], [address] [place] [address] PCP - General Internal Medicine 11/05/21 Lamine Navarro MD [address] [place] [address] Gastroenterology 11/05/21 Iain Hicks MD [address] [place] [address], [address] [address] Ophthalmology 07/01/22 Meliton Agudelo MD [address] [place] [address], [address] [place] [address] [email or web address] Insurance Assigned Provider 09/27/23 Larry Anderson MD [address] [place] [address] [place] [address] Otolaryngology 11/10/23 documented as of this encounter Additional Source Comments The information contained in this document represents components of the legal health record. It is not the complete legal health record.[facility]
--- OUTSIDE RECORDS SUMMARY | 2025-05-04 17:21 | XMS_ITS | Encounter Summary ---
Author Organization [facility] Address [address] [facility] [address] [place] [address] Phone Care Team Providers Care Assistant Corporation Counsel Name Role Phone Som Adkins MD Primary Care Provider Meliton Agudelo MD Primary Care Provider [phone] Lamine Navarro MD Unavailable [phone] Iain Hicks MD Unavailable [phone] Meliton Agudelo MD Unavailable [phone] Larry Anderson MD Unavailable Encounter Details Date Type Department Care Team (Late st Contact Info) Description 03/06/2020 Procedure Pass [address] [address] Social History Tobacco Use Types Packs/Day Years [...] Description 11/15/2025 8:30 AM EDT Office Visit [facility] [address] [place] [address] [place] [address] Meliton Agudelo MD 22 [facility], [address] [place] [address] [email or web address] documented as of this encounter Visit Diagnoses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documented in this encounter Additional Health Concerns Infection Onset Date Last Indicated Resolved Time CoV-Risk 01/22/2021 01/22/2021 02/01/2021 1:45 AM EDT COVID-19 05/05/2023 05/05/2023 05/26/2023 1:21 AM EST documented as of this encounter Care Teams Assistant Corporation Counsel Relationship Specialty Start Date End Date JedSom MD [address] [place] [address] [address] [place] [address] [email or web address] PCP - General Internal Medicine 05/26/17 11/04/21 Meliton Agudelo MD [address] [place] [address], [address] [place] [address] [email or web address] PCP - General Internal Medicine 11/05/21 Lamine Navarro MD [address] [place] [address] Gastroenterology 11/05/21 Iain Hicks MD [address] [place] [address] [email or web address] Ophthalmology 07/01/22 Meliton Agudelo MD [address] [place] [address], [address] [place] [address] [email or web address] Insurance Assigned Provider 09/27/23 Larry Anderson MD [address] [place] [address] Otolaryngology 11/10/23 documented as of this encounter Additional Source Comments The information contained in this document represents components of the legal health record. It is not the complete legal health record.[facility]
--- OUTSIDE RECORDS SUMMARY | 2025-05-04 17:21 | XMS_ITS | Clinical Summary ---
Author Organization [facility] Address [address] [address] Phone Care Team Providers Care Email Designer Name Role Phone Meliton Agudelo MD Primary Care Provider [phone] Lamine Navarro MD Unavailable [phone] Iain Hicks MD Unavailable [phone] Meliton Agudelo MD Unavailable [phone] Larry Anderson MD Unavailable [phone] Allergies Active Allergy Reactions Criticality Noted Date [...] to plan. She has follow up with [employer] in early June. 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 smoking, excerise, hormones, sex and age. CHOLESTEROL 195 0 - 240 mg/dL [facility] TRIGLYCERIDES 40 30 - 160 mg/dL [facility] LDL 118 50 - 129 mg/dL [facility] Comment: LDL levels in terms of risk for coronary heart disease: <100 mg/dL: Optimal 100-129 mg/dL: Near or above optimal 130-159 mg/dL: Borderline high 160-189 mg/dL: High >190 mg/dL: Very High CARDIAC RISK RATIO 2.8(L) 3.3 - 4.4 [facility] 10/30/2022 8:37 AM EDT 10/30/2022 8:42 AM EDT us Meliton Agudelo MD LAB BLOOD BKR ORDERABLES F inal Result [facility] [address] [place] [address] from Last 3 Months or Most Recently Relevant to Health Maintenance Insurance MEDICARE PART A & B MEDICARE SUPPLEMENT MEDICARE PART A & B [facility] MEDICARE SUPPLEMENT MEDICARE PART A & B [employer] MEDICARE SUPPLEMENT MEDICARE PART A & B [employer] MEDICARE SUPPLEMENT MEDICARE PART A & B [facility] MEDICARE SUPPLEMENT MEDICARE PART A & B [facility] EXTENSION MEDICARE SUPPLEMENT MEDICARE PART A & B [facility] MEDICARE SUPPLEMENT MEDICARE PART A & B Member Subscriber Plan / Payer ( fective 2014-Present) Name:Tamara Bernal Member ID:[id number] Relation to Subscriber:Self Name:Tamara Bernal Subscriber ID:[id number] Payer ID:[id number] Group ID:Not on file Type:Medicare Address: [employer] [address] [place] [address] [place] [address] EXTENSION MEDICARE SUPPLEMENT MEDICARE PART A & B [facility] EXTENSION MEDICARE SUPPLEMENT Care Teams Email Designer Relationship Specialty Start Date End Date Meliton Agudelo MD [address] [place] [address], [address] [place] [address] PCP - General Internal Medicine 11/05/21 Lamine Navarro MD [address] [place] [address] Gastroenterology 11/05/21 Iain Hicks MD [address] [place] [address], [address] [id number] Ophthalmology 07/01/22 Meliton Agudelo MD [address] [place] [address], [address] [place] [address] [email or web address] Insurance Assigned Provider 09/27/23 Larry Anderson MD [address] [place] [address] Otolaryngology 11/10/23 Additional Source Comments The information contained in this document represents components of the legal health record. It is not the complete legal health record.[facility]
--- OUTSIDE RECORDS SUMMARY | 2025-05-04 17:21 | XMS_ITS | Encounter Summary ---
Author Organization [facility] Address 399 [facility] [address] [place] [address] Phone Care Team Providers Care Appeals Representative Name Role Phone Som Adkins MD Primary Care Provider [phone] Meliton Agudelo MD Primary Care Provider [phone] Lamine Navarro MD Unavailable [phone] Iain Hicks MD Unavailable [phone] Meliton Agudelo MD Unavailable [phone] Larry Anderson MD Unavailable [phone] Reason for Referral * Physical Therapy (Routine) - Closed Specialty Diagnoses / Procedures Referred By Geoff lee Referred To Contact Physical Therapy Diagnoses Encounter for rehabilitation Som Adkins MD Phone: tel: fax: [email or web address] [address] [place] [address] Phone: tel: Referral ID Status Reason Start Date Expiration Date Visits Re quested Visits Authorized [id number] Closed 11/25/2017 06/22/2018 99 [phone] Encounter Details Date Type Department Care Team (Latest Contact Info) Description 11/04/2017 Transcribe Orders [facility] [address] [place] [address] Som Adkins MD [address] [place] [address] [address] [email or web address] Encounter for rehabilitation (Primary Dx) Social History [...] Description 11/15/2025 8:30 AM EDT Office Visit [address] [address] Meliton Agudelo MD [address] [place] [address], [address] [place] [address] [email or web address] Scheduled Referrals Name Type Priority Associated Diagnoses Orde r Schedule Ambulatory referral to [facility] Physical Therapy Outpatient Referral Routine Encounter for rehabilitation Ordered: 11/04/2017 documented as of this encounter Visit Diagnoses Diagnosis Encounter for rehabilitation- Primary documented in this encounter Additional Health Concerns Infection Onset Date Last Indicated Resolved Time CoV-Risk 01/22/2021 01/22/2021 02/01/2021 1:45 AM EDT COVID-19 05/05/2023 05/05/2023 05/26/2023 1:21 AM EST documented as of this encounter Care Teams Appeals Representative Relationship Specialty Start Date End Date Jed, Som Beaver MD [address] [place] [address] [email or web address] PCP - General Internal Medicine 05/26/17 11/04/21 Meliton Agudelo MD [address] [place] [address], [address] [place] [address] [email or web address] PCP - General Internal Medicine 11/05/21 Lamine Navarro MD [address] [place] [address] Gastroenterology 11/05/21 Iain Hicks MD [address] [place] [address], [address] [place] [address] Ophthalmology 07/01/22 Meliton Agudelo MD [address] [place] [address], [address] [place] [address] Insurance Assigned Provider 09/27/23 Larry Anderson MD [address] [place] [address] Otolaryngology 11/10/23 documented as of this encounter Additional Source Comments The information contained in this document represents components of the legal health record. It is not the complete legal health record.[facility]
--- OUTSIDE RECORDS SUMMARY | 2025-05-04 17:21 | XMS_ITS | Encounter Summary ---
Author Organization [facility] Address 399 [facility] [address] [place] [address] Phone Care Team Providers Care Mud Analysis Well Logging Captain Name Role Phone Som Adkins MD Primary Care Provider Meliton Agudelo MD Primary Care Provider [phone] Lamine Navarro MD Unavailable [phone] Iain Hicks MD Unavailable [phone] Meliton Agudelo MD Unavailable [phone] Larry Anderson MD Unavailable Encounter Details Date Type Department Care Team (Latest Contact Info) Description 07/31/2017 Transcribe Orders [address] [address] JedSom hernández MD [address] [place] [address] [address] [place] [address] [email or web address] Routine medical exam (Primary Dx); High cholesterol; [...] 8:30 AM EDT Office Visit [facility] [place] [address] Meliton Agudelo MD [address] [place] [address], [address] [place] [address] [email or web address] documented as of this encounter Results * CBC and differential (07/31/2017 7:56 AM EST) WBC 5.60 3.40 - 11.20 K/uL [facility] RBC 4.57 3.80 - 4.80 M/uL [facility] HGB 13.8 12.0 - 15.0 g/dL [facility] HCT 42.1 36.0 - 46.0 % [facility] PLT 293 130 - 400 K/uL [facility] MCV 92.1 79.0 - 98.0 fL [facility] MCH 30.2 27.0 - 34.8 pg [facility] MCHC 32.8 31.5 - 36.0 g/dL [facility] RDW 12.7 10.8 - 14.6 % [facility] MPV 10.6 9.4 - 12.4 fl [facility] NRBC 0.00 /100 WBCs [facility] ABSOLUTE NRBC 0.00 K/uL [facility] DIFF METHOD Auto [facility] NEUTS 52.8 45.30 - 77.70 % [facility] LYMPHS 32.5 12.30 - 39.70 % [facility] MONOS 9.5 4.10 - 12.80 % [facility] EOS 3.9 0 - 7.2 % [facility] BASOS 1.1 0 - 2.80 % [facility] Granulocytes, immature (%) 0.2 0.0 - 0.9 % [facility] ABSOLUTE NEUTS 2.96 1.40 - 7.70 K/uL [facility] ABSOLUTE LYMPHS 1.82 0.60 - 3.20 K/uL [facility] ABSOLUTE MONOS 0.53 0.11 - 0.59 K/uL [facility] ABSOLUTE EOS 0.22 0.01 - 0.50 K/uL [facility] ABSOLUTE BASOS 0.06 0.00 - 0.08 K/uL [facility] Granulocytes, immature 0.01 0.00 - 0.05 K/uL [facility] Blood 07/31/2017 7:56 AM EST 07/31/2017 8:01 AM EST Som Adkins MD LAB BLOOD BKR ORDERABLES Final Result Performing Organization Address [facility] [facility]/ZIP Co de Phone Number [address] [address] * TSH (07/31/2017 7:56 AM EST) TSH 3.24 0.27 - 4.20 uIU/mL [facility] Blood 07/31/2017 7:56 AM EST 07/31/2017 8:01 AM EST Som Adkins MD LAB BLOOD BKR ORDERABLES Final Result Performing Organization Address [facility] Co de Phone Number [address] [address] * (ABNORMAL) Lipid panel (07/31/2017 7:56 AM EST) HDL 76 mg/dL [facility] Comment: Interpretation: Risk Level Females Decreased >55mg/dL Average 50-55 mg/dL Increased <50 mg/dL CHOLESTEROL 210 0 - 240 mg/dL [facility] TRIGLYCERIDES 43 30 - 160 mg/dL [facility] LDL 125 50 - 129 mg/dL [facility] Comment: LDL levels in terms of risk for coronary heart disease: <100 mg/dL: Optimal 100-129 mg/dL: Near or above optimal 130-159 mg/dL: Borderline high 160-189 mg/dL: High >190 mg/dL: Very High CARDIAC RISK RATIO 2.8(L) 3.3 - 4.4 C [facility] Blood 07/31/2017 7:56 AM EST 07/31/2017 8:01 AM EST Som Adkins MD LAB BLOOD BKR ORDERABLES Final Result Performing Organization Address [facility] Co de Phone Number [address] [address] * Comprehensive metabolic panel (07/31/2017 7:56 AM EST) SODIUM 142 133 - 146 mmol/L [facility] POTASSIUM 4.6 3.3 - 5.1 mmol/L [facility] CHLORIDE 102 96 - 108 mmol/L [facility] CO2 30 21 - 35 mmol/L [facility] BUN 15 6 - 19 mg/dL [facility] CREATININE 0.70 0.5 - 1.5 mg/dL [facility] GLUCOSE 80 70 - 99 mg/dL [facility] ALBUMIN 4.3 3.9 - 4.8 g/dL [facility] TOTAL PROTEIN 7.1 6.5 - 8.0 g/dL [facility] CALCIUM 9.4 8.4 - 10.3 mg/dL [facility] ALKALINE PHOSPHATASE 65 39 - 117 U/L [facility] TOTAL BILIRUBIN 0.6 0 - 1.2 mg/dL [facility] AST 25 0 - 37 U/L [facility] ALT 11 0 - 40 U/L [facility] GLOBULIN 2.8 1 - 4.8 g/dL [facility] EGFR >60 mL/min/1.7 3m2 [facility] Comment:Abnormal if <60. If patient is -Togolese, multiply the result by 1.21. ANION GAP 15 10 - 20 mmol/L [facility] Blood 07/31/2017 7:56 AM EST 07/31/2017 8:01 AM EST us Som Adkins MD LAB BLOOD BKR ORDERABLES Final Result [address] [address] documented in this encounter Visit Diagnoses Diagnosis Routine medical exam- Primary Routine general medical examination at a health care facility High cholesterol Pure hypercholesterolemia Fatigue, unspecified type documented in this encounter Additional Health Concerns Infection Onset Date Last Indicated Resolved Time CoV-Risk 01/22/2021 01/22/2021 02/01/2021 1:45 AM EDT COVID-19 05/05/2023 05/05/2023 05/26/2023 1:21 AM EST documented as of this encounter Care Teams Mud Analysis Well Logging Captain Relationship Specialty Start Date End Date Jed, Som Beaver MD [address] [place] [address] 10 [address] [place] [address] [email or web address] PCP - General Internal Medicine 05/26/17 11/04/21 Meliton Agudelo MD [address] [place] [address], [address] [place] [address] PCP - General Internal Medicine 11/05/21 Lamine Navarro MD [address] [place] [address] Gastroenterology 11/05/21 Iain Hicks MD [address] [place] [address] Ophthalmology 07/01/22 Meliton Agudelo MD [address] [place] [address], [address] [place] [address] Insurance Assigned Provider 09/27/23 Larry Anderson MD [address] [place] [address] Otolaryngology 11/10/23 documented as of this encounter Additional Source Comments The information contained in this document represents components of the legal health record. It is not the complete legal health record.[facility]
--- OUTSIDE RECORDS SUMMARY | 2025-05-04 17:21 | XMS_ITS | Encounter Summary ---
Author Organization [facility] Address [address] [facility] [address] [place] [address] Phone Care Team Providers Care Production Operator Name Role Phone Som Adkins MD Primary Care Provider Meliton Agudelo MD Primary Care Provider [phone] Lamine Navarro MD Unavailable [phone] Iain Hicks MD Unavailable [phone] Meliton Agudelo MD Unavailable Larry Anderson MD Unavailable Encounter Details Date Type Department Care Team (Late st Contact Info) Description 04/12/2017 Ancillary Orders [facility] [address] [place] [address] [place] [address] Ken Bingham MD [address] [place] [address] Social History Tobacco Use Types Packs/Day Years [...] EDT Office Visit [facility] [place] [facility] [address] [place] [address] [place] [address] Meliton Agudelo MD 22 [facility], [address] [place] [address] documented as of this encounter Visit Diagnoses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documented in this encounter Additional Health Concerns Infection Onset Date Last Indicated Resolved Time CoV-Risk 01/22/2021 01/22/2021 02/01/2021 1:45 AM EDT COVID-19 05/05/2023 05/05/2023 05/26/2023 1:21 AM EST documented as of this encounter Care Teams Production Operator Relationship Specialty Start Date End Date JedSom MD [address] [place] [address] 10 [address] [place] [address] [email or web address] PCP - General Internal Medicine 05/26/17 11/04/21 Meliton Agudelo MD [address] [place] [address], [address] [place] [address] PCP - General Internal Medicine 11/05/21 Lamine Navarro MD [address] [place] [address] Gastroenterology 11/05/21 Iain Hicks MD [address] [place] [address] [email or web address] Ophthalmology 07/01/22 Meliton Agudelo MD [address] [place] [address], [address] [place] [address] [email or web address] Insurance Assigned Provider 09/27/23 Larry Anderson MD [address] [place] [address] Otolaryngology 11/10/23 documented as of this encounter Additional Source Comments The information contained in this document represents components of the legal health record. It is not the complete legal health record.[facility]
--- OUTSIDE RECORDS SUMMARY | 2025-05-04 17:21 | XMS_ITS | Encounter Summary ---
Author Organization [facility] Address 399 [facility] [address] [place] [address] Phone Care Team Providers Care Door To Door Selling Distributor Name Role Phone Som Adkins MD Primary Care Provider [phone] Deidra Agudelo MD Primary Care Provider [phone] Lamine Navarro MD Unavailable [phone] Iain Hicks MD Unavailable [phone] Deidra Agudelo MD Unavailable [phone] Larry Anderson MD Unavailable Encounter Details Date Type Department Care Team (Late st Contact Info) Description 04/12/2017 Ancillary Orders [facility], [facility] [address] [place] [address] Ken Bingham MD [address] [place] [address] Visit for screening mammogram Social History Tobacco [...] Description 11/15/2025 8:30 AM EDT Office Visit [address] [place] [address] Deidra Agudelo MD 22 [facility], [address] [place] [address] [email or web address] documented as of this encounter Results * [...] lowers the sensitivity of mammography. POS - [id number] Narrative 05/26/2017 7:56 AM EST 71-year-old female [...] whichlowers the sensitivity of mammography. POS - [id number] Ken Bingham MD IMG MG EXAMS Final Result documented in this encounter Visit Diagnoses Diagnosis Visit for screening mammogram Visit for screening mammogram documented in this encounter Additional Health Concerns Infection Onset Date Last Indicated Resolved Time CoV-Risk 01/22/2021 01/22/2021 02/01/2021 1:45 AM EDT COVID-19 05/05/2023 05/05/2023 05/26/2023 1:21 AM EST documented as of this encounter Care Teams Door To Door Selling Distributor Relationship Specialty Start Date End Date Jed, Som Beaver MD [address] [place] [address] [address] [place] [address] [email or web address] PCP - General Internal Medicine 05/26/17 11/04/21 Deidra Agudelo MD [address] [place] [address] [address] [place] [address] [email or web address] PCP - General Internal Medicine 11/05/21 Lamine Navarro MD [address] [place] [address] Gastroenterology 11/05/21 Iain Hicks MD [address] [place] [address] [email or web address] Ophthalmology 07/01/22 Deidra Agudelo MD [address] [place] [address], [address] [place] [address] [email or web address] Insurance Assigned Provider 09/27/23 Larry Anderson MD [address] [place] [address] Otolaryngology 11/10/23 documented as of this encounter Additional Source Comments The information contained in this document represents components of the legal health record. It is not the complete legal health record.[facility]
--- OUTSIDE RECORDS SUMMARY | 2025-05-04 17:21 | XMS_ITS | Encounter Summary ---
Author Organization [facility] Address [address] [facility] [address] [place] [address] Phone Care Team Providers Care Sample Examiner Name Role Phone Meliton Agudelo MD Primary Care Provider [phone] Lamine Navarro MD Unavailable [phone] Iain Hicks MD Unavailable [phone] Meliton Agudelo MD Unavailable [phone] Larry Anderson MD Unavailable [phone] Encounter Details Date Type Department Care Team (Late st Contact Info) Description 04/09/2023 Procedure Pass [facility], [facility] [address] [place] [address] Social History Tobacco Use Types Packs/Day Years [...] high school, GED, job training, learning the Sami language, technical skills, or developing parenting skills)? 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 documented as of this encounter Plan of Treatment Upcoming Encounters Date Type Department Care Team (Late st Contact Info) Description 11/15/2025 8:30 AM EDT Office Visit [facility] [address] [place] [address] [place] [address] Meliton Agudelo MD [address] [place] [address], [address] [place] [address] [email or web address] documented as of this encounter Visit Diagnoses Not on filedocumented in this encounter Additional Health Concerns Infection Onset Date Last Indicated Resolved Time COVID-19 05/05/2023 05/05/2023 05/26/2023 1:21 AM EST Assessment Noted Time PHQ-2 Depression Total Score: 0 11/05/19 9:02 AM EDT documented as of this encounter Care Teams Sample Examiner Relationship Specialty Start Date End Date Meliton Agudelo MD [address] [place] [address], [address] [place] [address] [email or web address] PCP - General Internal Medicine 11/05/21 Lamine Navarro MD [address] [place] [address] Gastroenterology 11/05/21 Iain Hicks MD [address] [place] [address], [address] [place] [address] [email or web address] Ophthalmology 07/01/22 Meliton Agudelo MD [address] [place] [address], [address] [place] [address] [email or web address] Insurance Assigned Provider 09/27/23 Larry Anderson MD [address] [place] [address] Otolaryngology 11/10/23 documented as of this encounter Additional Source Comments The information contained in this document represents components of the legal health record. It is not the complete legal health record.[facility]
--- OUTSIDE RECORDS SUMMARY | 2025-05-04 17:21 | XMS_ITS | Encounter Summary ---
Author Organization [facility] Address [address] [facility] [address] [place] [address] Phone Care Team Providers Care Grill Cook Name Role Phone Som Adkins MD Primary Care Provider Meliton Agudelo MD Primary Care Provider [phone] Lamine Navarro MD Unavailable [phone] Iain Hicks MD Unavailable [phone] Meliton Agudelo MD Unavailable [phone] Larry Anderson MD Unavailable Encounter Details Date Type Department Care Team (Late st Contact Info) Description 05/20/2020 Procedure Pass [facility] [place] [place] [address] Social History Tobacco Use Types Packs/Day Years [...] 11/15/2025 8:30 AM EDT Office Visit [facility] [place] [facility] Medicine [address] [place] [address] [place] [address] Meliton Agudelo MD 22 [facility], [address] [place] [address] [email or web address] documented as of this encounter Visit Diagnoses Not on filedocumented in this encounter Additional Health Concerns Infection Onset Date Last Indicated Resolved Time CoV-Risk 01/22/2021 01/22/2021 02/01/2021 1:45 AM EDT COVID-19 05/05/2023 05/05/2023 05/26/2023 1:21 AM EST documented as of this encounter Care Teams Grill Cook Relationship Specialty Start Date End Date Som Adkins MD [address] [place] [address] & [address] [place] [address] [email or web address] PCP - General Internal Medicine 05/26/17 11/04/21 Meliton Agudelo MD [address] [place] [address], [address] [place] [address] [email or web address] PCP - General Internal Medicine 11/05/21 Lamine Navarro MD [address] [place] [address] Gastroenterology 11/05/21 Iain Hicks MD [address] [place] [address] Ophthalmology 07/01/22 Meliton Agudelo MD [address] [place] [address], [address] [place] [address] [email or web address] Insurance Assigned Provider 09/27/23 Larry Anderson MD [address] [place] [address] Otolaryngology 11/10/23 documented as of this encounter Additional Source Comments The information contained in this document represents components of the legal health record. It is not the complete legal health record.[facility]
== END 2025-05-04 14:05 | disposition home or self-care (01) ==
LOC: HO.HMGAL 14:05
PROVIDERS: PCP Internal Medicine; Visit Provider Registered Nurse Emergency
DX: J30.89 Other allergic rhinitis (principal)
CPT/HCPCS: 95117; 95165

== ENCOUNTER 2025-05-16 11:13 | Outpatient (AMB) | payer MEDICARE, OTHER, SELFPAY ==
--- OUTSIDE RECORDS SUMMARY | 2025-05-16 14:33 | XMS_ITS | Encounter Summary ---
Author Organization [facility] Address [address] [facility] [address] [place] [address] Phone Care Team Providers Care Business Services Sales Representative Name Role Phone Som Adkins MD Primary Care Provider Meliton Agudelo MD Primary Care Provider [phone] Lamine Navarro MD Unavailable [phone] Iain Hicks MD Unavailable [phone] Meliton Agudelo MD Unavailable [phone] Larry Anderson MD Unavailable [phone] Encounter Details Date Type Department Care Team (Late st Contact Info) Description 03/01/2019 Ancillary Orders Virtual Department 30 [place] [address] Som Adkins MD 264 [facility] [address] [place] [address] [email or web address] Breast [email or web address] Social History Tobacco Use [...] Care Team (Late st Contact Info) Description 06/27/2025 8:20 AM EST Office Visit [facility] [address] [place] [address] Tiarra Ojeda MD [address] [place] [address], [address] [place] [address] [email or web address] 11/15/2025 8:30 AM EDT Office Visit [facility] [address] [place] [address] Meliton Agudelo MD [address] [place] [address], [address] [place] [address] [email or web address] documented as of this [...] Indicated Resolved Time CoV-Risk 01/22/2021 01/22/2021 02/01/2021 1:4 5 AM EDT COVID-19 05/05/2023 05/05/2023 05/26/2023 1:21 AM EST documented as of this encounter Care Teams Business Services Sales Representative Relationship Specialty Start Date End Date Som Adkins MD [address] [place] [address] [address] [place] [address] [email or web address] PCP - General Internal Medicine 05/26/17 11/04/21 Meliton Agudelo MD [address] [place] [address], [address] [place] [address] [email or web address] PCP - General Internal Medicine 11/05/21 Lamine Navarro MD [address] [place] [address] Gastroenterology 11/05/21 Iain Hicks MD [address] [place] [address], [address] [place] [address] Ophthalmology 07/01/22 Meliton Agudelo MD [address] [place] [address], [address] [place] [address] [email or web address] Insurance Assigned Provider 09/27/23 Larry Anderson MD [address] [place] [address] [place] [address] Otolaryngology 11/10/23 documented as of this encounter Additional Source Comments The information contained in this document represents components of the legal health record. It is not the complete legal health record.[facility]
--- OUTSIDE RECORDS SUMMARY | 2025-05-16 14:33 | XMS_ITS | Encounter Summary ---
Author Organization [facility] Address [address] [facility] [address] [place] [address] Phone Care Team Providers Care Thermite Bomb Loader Name Role Phone Meliton Agudelo MD Primary Care Provider [phone] Lamine Navarro MD Unavailable [phone] Iain Hicks MD Unavailable Meliton Agudelo MD Unavailable [phone] Larry Anderson MD Unavailable [phone] Encounter Details Date Type Department Care Team (Late st Contact Info) Description 03/19/2022 Procedure Pass [facility], [facility] 30 [place] [address] Social History Tobacco Use Types Packs/Day Years [...] high school, GED, job training, learning the Greek language, technical skills, or developing parenting skills)? 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 file documented as of this encounter Plan of Treatment Upcoming Encounters Date Type Department Care Team (Late st Contact Info) Description 06/27/2025 8:20 AM EST Office Visit [facility] [address] [place] [address] [place] [address] Tiarra Ojeda MD [address] [place] [address], [address] [place] [address] 11/15/2025 8:30 AM EDT Office Visit [facility] [address] [place] [address] [place] [address] Meliton Agudelo MD [address] [place] [address], [address] [place] [address] documented as of this encounter Visit Diagnoses Not on filedocumented in this encounter Additional Health Concerns Infection Onset Date Last Indicated Resolved Time COVID-19 05/05/2023 05/05/2023 05/26/2023 1:21 AM EST Assessment Noted Time PHQ-2 Depression Total Score: 0 11/06/19 9:20 AM EDT documented as of this encounter Care Teams Thermite Bomb Loader Relationship Specialty Start Date End Date Meliton Agudelo MD [address] [place] [address], [address] [place] [address] PCP - General Internal Medicine 11/05/21 Lamine Navarro MD [address] [place] [address] Gastroenterology 11/05/21 Iain Hicks MD [address] [place] [address] Ophthalmology 07/01/22 Meliton Agudelo MD [address] [place] [address], [address] [place] [address] Insurance Assigned Provider 09/27/23 Larry nAderson MD [address] [place] [address] Otolaryngology 11/10/23 documented as of this encounter Additional Source Comments The information contained in this document represents components of the legal health record. It is not the complete legal health record.[facility]
--- OUTSIDE RECORDS SUMMARY | 2025-05-16 14:33 | XMS_ITS | Encounter Summary ---
Author Organization [facility] Address [address] [facility] [address] [place] [address] Phone Care Team Providers Care Transcriptionist Name Role Phone Meliton Agudelo MD Primary Care Provider [phone] Lamine Navarro MD Unavailable [phone] Iain Hicks MD Unavailable [phone] Meliton Agudelo MD Unavailable [phone] Larry Anderson MD Unavailable Encounter Details Date Type Department Care Team (Latest Contact Info) Description 04/09/2023 Transcribe Orders Virtual Department 30 [place], [place] [id number] Meliton Agudelo MD 22 [facility], [address] [place] [address] [email or web address] Encounter for screening mammogram for [...] high school, GED, job training, learning the Taiwanese language, technical skills, or developing parenting skills)? 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 file documented as of this encounter Plan of Treatment Upcoming Encounters Date Type Department Care Team (Late st Contact Info) Description 06/27/2025 8:20 AM EST Office Visit [facility] [address] [place] [address] [place] [address] Tiarra Ojeda MD 22 [facility], [address] [place] [address] [email or web address] 11/15/2025 8:30 AM EDT Office Visit [facility] [place] [facility] [address] [place] [address] Meliton Agudelo MD [address] [place] [address], [address] [place] [address] [email or web address] documented as of this encounter Results * [...] documented as of this encounter Care Teams Transcriptionist Relationship Specialty Start Date End Date Meliton Agudelo MD [address] [place] [address], [address] [place] [address] PCP - General Internal Medicine 11/05/21 Lamine Navarro MD [address] [place] [address] Gastroenterology 11/05/21 Iain Hicks MD [address] [place] [address], [address] [place] [address] [email or web address] Ophthalmology 07/01/22 Meliton Agudelo MD [address] [place] [address], [address] [place] [address] Insurance Assigned Provider 09/27/23 Larry Anderson MD [address] [place] [address] 106 [place] [address] Otolaryngology 11/10/23 documented as of this encounter Additional Source Comments The information contained in this document represents components of the legal health record. It is not the complete legal health record.[facility]
--- OUTSIDE RECORDS SUMMARY | 2025-05-16 14:33 | XMS_ITS | Encounter Summary ---
Author Organization [facility] Address 399 [facility] [address] [place] [address] Phone Care Team Providers Care Putty Remover Name Role Phone Meliton Agudelo MD Primary Care Provider [phone] Lamine Navarro MD Unavailable [phone] Iain Hicks MD Unavailable [phone] Meliton Agudelo MD Unavailable [phone] Larry Anderson MD Unavailable [phone] Encounter Details Date Type Department Care Team (Late st Contact Info) Description 08/25/2023 Procedure Pass [facility], [facility] 30 [place] [address] Social History Tobacco Use Types Packs/Day Years [...] high school, GED, job training, learning the Polish language, technical skills, or developing parenting skills)? 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 file documented as of this encounter Plan of Treatment Upcoming Encounters Date Type Department Care Team (Late st Contact Info) Description 06/27/2025 8:20 AM EST Office Visit [facility] [address] [place] [address] [place] [address] Tiarra Ojeda MD [address] [place] [address], [address] [place] [address] 11/15/2025 8:30 AM EDT Office Visit [facility] [place] [facility] [address] [place] [address] [place] [address] Meliton Agudelo MD [address] [place] [address], [address] [place] [address] documented as of this encounter Visit Diagnoses Not on filedocumented in this encounter Additional Health Concerns Assessment Noted Time PHQ-2 Depression Total Score: 0 11/05/19 9:02 AM EDT documented as of this encounter Care Teams Putty Remover Relationship Specialty Start Date End Date Meliton Agudelo MD [address] [place] [address], [address] [place] [address] PCP - General Internal Medicine 11/05/21 Lamine Navarro MD [address] [place] [address] Gastroenterology 11/05/21 Iain Hicks MD [address] [place] [address], [address] [place] [address] Ophthalmology 07/01/22 Meliton Agudelo MD [address] [place] [address], [address] [place] [address] Insurance Assigned Provider 09/27/23 Larry Anderson MD [address] [place] [address] Otolaryngology 11/10/23 documented as of this encounter Additional Source Comments The information contained in this document represents components of the legal health record. It is not the complete legal health record.[facility]
--- OUTSIDE RECORDS SUMMARY | 2025-05-16 14:33 | XMS_ITS | Encounter Summary ---
Author Organization [facility] Address 399 [facility] [address] [place] [address] Phone Care Team Providers Care Makeup Instructor Name Role Phone Meliton Aguedlo MD Primary Care Provider [phone] Lamine Navarro MD Unavailable [phone] Iain Hicks MD Unavailable [phone] Meliton Agudelo MD Unavailable [phone] Larry Anderson MD Unavailable Encounter Details Date Type Department Care Team (Late st Contact Info) Description 08/25/2023 Ancillary Orders [facility] 30 [place], [place] [address] Meliton Agudelo MD 22 [facility], [address] [place] [address] [email or web address] Abnormal finding on mammography (Primary [...] high school, GED, job training, learning the Bulgarian language, technical skills, or developing parenting skills)? 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 file documented as of this encounter Plan of Treatment Upcoming Encounters Date Type Department Care Team (Late st Contact Info) Description 06/27/2025 8:20 AM EST Office Visit [facility] [address] [place] [address] [place] [address] Tiarra Ojeda MD 22 [facility], [address] [place] [address] 11/15/2025 8:30 AM EDT Office Visit [facility] [place] [facility] [address] [place] [address] [place] [address] Meliton Agudelo MD [address] [place] [address], [address] [place] [address] [email or web address] documented as of this [...] documented as of this encounter Care Teams Makeup Instructor Relationship Specialty Start Date End Date Meliton Agudelo MD [address] [place] [address], [address] [place] [address] PCP - General Internal Medicine 11/05/21 Lamine Navarro MD [address] [place] [address] Gastroenterology 11/05/21 Iain Hicks MD [address] [place] [address], [address] [place] [address] [email or web address] Ophthalmology 07/01/22 Meliton Agudelo MD [address] [place] [address], [address] [place] [address] [email or web address] Insurance Assigned Provider 09/27/23 Larry Anderson MD [address] [place] [address] Dr [place] [address] Otolaryngology 11/10/23 documented as of this encounter Additional Source Comments The information contained in this document represents components of the legal health record. It is not the complete legal health record.[facility]
--- OUTSIDE RECORDS SUMMARY | 2025-05-16 14:33 | XMS_ITS | Encounter Summary ---
Author Organization [facility] Address [address] [facility] [address] [place] [address] Phone Care Team Providers Care Freight Car Repairer Name Role Phone Som Adkins MD Primary Care Provider [phone] Meliton Agudelo MD Primary Care Provider [phone] Lamine Navarro MD Unavailable [phone] Iain Hicks MD Unavailable [phone] Meliton Agudelo MD Unavailable [phone] Larry Anderson MD Unavailable Encounter Details Date Type Department Care Team (Latest Contact Info) Description 07/31/2017 Transcribe Orders [address] [address] Som Adkins MD 264 [facility] [address] [place] [address] [email or web address] Routine medical exam (Primary Dx); High [...] Visit [facility] [address] [place] [address] Tiarra Ojeda MD [address] [place] [address], [address] [place] [address] [email or web address] 11/15/2025 8:30 AM EDT Office Visit [facility] [address] [place] [address] Meliton Agudelo MD 22 [facility], [address] [place] [address] [email or web address] documented as of this encounter Results * CBC and differential (07/31/2017 7:56 AM EST) WBC 5.60 3.40 - 11.20 K/uL [facility] RBC 4.57 3.80 - 4.80 M/uL [facility] HGB 13.8 12.0 - 15.0 g/dL [facility] HCT 42.1 36.0 - 46.0 % [facility] PLT 293 130 - 400 K/uL [facility] MCV 92.1 79.0 - 98.0 fL [facility] MCH 30.2 27.0 - 34.8 pg [facility] MCHC 32.8 31.5 - 36.0 g/dL [facility] RDW 12.7 10.8 - 14.6 % [facility] MPV 10.6 9.4 - 12.4 fl [facility] NRBC 0.00 /100 WBCs [facility] ABSOLUTE NRBC 0.00 K/uL [facility] DIFF METHOD Auto [facility] NEUTS 52.8 45.30 - 77.70 % [facility] LYMPHS 32.5 12.30 - 39.70 % [facility] MONOS 9.5 4.10 - 12.80 % [facility] EOS 3.9 0 - 7.2 % [facility] BASOS 1.1 0 - 2.80 % [facility] Granulocytes, immature (%) 0.2 0.0 - 0.9 % [facility] ABSOLUTE NEUTS 2.96 1.40 - 7.70 K/uL [facility] ABSOLUTE LYMPHS 1.82 0.60 - 3.20 K/uL [facility] ABSOLUTE MONOS 0.53 0.11 - 0.59 K/uL [facility] ABSOLUTE EOS 0.22 0.01 - 0.50 K/uL [facility] ABSOLUTE BASOS 0.06 0.00 - 0.08 K/uL [facility] Granulocytes, immature 0.01 0.00 - 0.05 K/uL [facility] Blood 07/31/2017 7:56 AM EST 07/31/2017 8:01 AM EST Som Adkins MD LAB BLOOD BKR ORDERABLES Final Result Performing Organization Address [facility]/ZIP Co de Phone Number [address] [address] * TSH (07/31/2017 7:56 AM EST) TSH 3.24 0.27 - 4.20 uIU/mL [facility] Blood 07/31/2017 7:56 AM EST 07/31/2017 8:01 AM EST Som Adkins MD LAB BLOOD BKR ORDERABLES Final Result Performing Organization Address [facility] Co de Phone Number [address] [address] * (ABNORMAL) Lipid panel (07/31/2017 7:56 AM EST) HDL 76 mg/dL [facility] Comment: Interpretation: Risk Level Females Decreased >55mg/dL Average 50-55 mg/dL Increased <50 mg/dL CHOLESTEROL 210 0 - 240 mg/dL [facility] TRIGLYCERIDES 43 30 - 160 mg/dL [facility] LDL 125 50 - 129 mg/dL [facility] Comment: LDL levels in terms of risk for coronary heart disease: <100 mg/dL: Optimal 100-129 mg/dL: Near or above optimal 130-159 mg/dL: Borderline high 160-189 mg/dL: High >190 mg/dL: Very High CARDIAC RISK RATIO 2.8(L) 3.3 - 4.4 [facility] Blood 07/31/2017 7:56 AM EST 07/31/2017 8:01 AM EST Som Adkins MD LAB BLOOD BKR ORDERABLES Final Result Performing Organization Address City/[facility]/ZIP Co de Phone Number [address] [address] * Comprehensive metabolic panel (07/31/2017 7:56 AM EST) Pathologist [facility] SODIUM 142 133 - 146 mmol/L [facility] POTASSIUM 4.6 3.3 - 5.1 mmol/L [facility] CHLORIDE 102 96 - 108 mmol/L [facility] CO2 30 21 - 35 mmol/L [facility] BUN 15 6 - 19 mg/dL [facility] CREATININE 0.70 0.5 - 1.5 mg/dL [facility] GLUCOSE 80 70 - 99 mg/dL [facility] ALBUMIN 4.3 3.9 - 4.8 g/dL [facility] TOTAL PROTEIN 7.1 6.5 - 8.0 g/dL [facility] CALCIUM 9.4 8.4 - 10.3 mg/dL [facility] ALKALINE PHOSPHATASE 65 39 - 117 U/L [facility] TOTAL BILIRUBIN 0.6 0 - 1.2 mg/dL [facility] AST 25 0 - 37 U/L [facility] ALT 11 0 - 40 U/L [facility] GLOBULIN 2.8 1 - 4.8 g/dL [facility] EGFR >60 mL/min/1.7 3m2 [facility] Comment:Abnormal if <60. If patient is -Nepalese, multiply the result by 1.21. ANION GAP 15 10 - 20 mmol/L [facility] Blood 07/31/2017 7:56 AM EST 07/31/2017 8:01 AM EST Som Adkins MD LAB BLOOD BKR ORDERABLES Final Result Performing Organization Address City/[facility]/ZIP Co de Phone Number [address] [address] documented in this encounter Visit Diagnoses Diagnosis Routine medical exam- Primary Routine general medical examination at a health care facility High cholesterol Pure hypercholesterolemia Fatigue, unspecified type documented in this encounter Additional Health Concerns Infection Onset Date Last Indicated Resolved Time CoV-Risk 01/22/2021 01/22/2021 02/01/2021 1:45 AM EDT COVID-19 05/05/2023 05/05/2023 05/26/2023 1:21 AM EST documented as of this encounter Care Teams Freight Car Repairer Relationship Specialty Start Date End Date JedSom MD [address] [place] [address] [address] [place] [address] [email or web address] PCP - General Internal Medicine 05/26/17 11/04/21 Meliton Agudelo MD [address] [place] [address], [address] [place] [address] PCP - General Internal Medicine 11/05/21 Lamine Navarro MD [address] [place] [address] Gastroenterology 11/05/21 Iain Hicks MD [address] [place] [address] Ophthalmology 07/01/22 Meliton Agudelo MD [address] [place] [address], [address] [place] [address] Insurance Assigned Provider 09/27/23 Larry Anderson MD [address] [place] [address] Otolaryngology 11/10/23 documented as of this encounter Additional Source Comments The information contained in this document represents components of the legal health record. It is not the complete legal health record.[facility]
--- OUTSIDE RECORDS SUMMARY | 2025-05-16 14:34 | XMS_ITS | Clinical Summary ---
Author Organization [facility] Address [address] [address] Phone Care Team Providers Care Foot And Ankle Surgeon Name Role Phone Meliton Agudelo MD Primary Care Provider [phone] Lamine Navarro MD Unavailable [phone] Iain Hicks MD Unavailable [phone] Meliton Agudelo MD Unavailable [phone] Larry Anderson MD Unavailable Allergies Active Allergy Reactions Criticality Noted Date Comments Clarithromycin Unknown 05/08/2023 Erythromycin 04/20/2018 Levofloxacin Other (See Comments) 04/20/2018 Legs swell Sulfamethoxazole-Trimethopr im Hives 04/20/2018 Azithromycin Nausea and/or Vomiting 04/20/2018 Medications VIT C/E/ZN/COPPR/L UTEIN/ZEAXAN (PRESERVISION AREDS 2 ORAL) Active dicyclomine (BENTYL) 10 MG capsule Take 1 capsule by mouth 4 (four) times a day as needed. Active vitamin E 400 UNIT capsule Take 1 capsule by mouth daily. Active pantoprazole (PROTONIX) 40 MG tablet Take 1 tablet by mouth daily. Active multivitamins capsule Orally Active Medication-Suleman e Text Calcium 600 + D - Tablet, Si tablet with food Orally Once a day Active turmeric/turme miranda ext/pepr ext (TURMERIC-TURM DELPHINE EXT-PEPPER ORAL) Take by mouth. Activ e fluticasone propionate (FLONASE) 50 mcg/actuation nasal sprayIndicatio ns:Non-seasona l allergic rhinitis due to other allergic trigger SPRAY 2 SPRAYS BY NASAL ROUTE 2 (TWO) TIMES A DAY NEEDED 48 mL 1 01/11/20 25 Active TOPROL XL 25 mg 24 hr tablet TAKE 1 TABLET BY MOUTH EACH EVENING. MAY TAKE EXTRA 1/2 PER DAY NEEDED FOR PALPITATIONS 120 tablet 3 05/10/20 25 Active TOPROL XL 25 mg 24 hr tablet TAKE 1 TABLET BY MOUTH EACH EVENING. MAY TAKE EXTRA 1/2 PER DAY NEEDED FOR PALPITATIONS 120 tablet 1 07/13/19 25 025 Discontinued Active Problems Problem Noted Date Diagnosed Date [...] ENT for immunotherapy. Paroxysmal supraventricular tachycardia 11/06/19 22 Assessment & Plan (11/10/2024 9:38 AM EDT): [...] to plan. She has follow up with DELIVERY CLERK in early June. Will call them if [...] start with OTC topical treatment. Hypercholesterolemia 11/04/2022 05 024 Assessment & Plan (11/04/2022 12:05 PM EDT): Cholesterol is mildly elevated, continue dietary management Cortical cataract of both eyes 07/01/2022 11/04/2022 Assessment & Plan (07/01/2022 5:05 PM EST): She is low risk for complication related to surgery. There is no contraindication to proceeding with her cataract surgery. 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 file [...] Office Visit [facility] [address] [place] [address] [place] [address] Tiarra Ojeda MD [address] [place] [address], [address] [place] [address] [email or web address] 11/15/2025 8:30 AM EDT Office Visit [facility] [address] [place] [address] [place] [address] Meliton Agudelo MD [address] [place] [address], [address] [place] [address] [email or web address] Health Maintenance Due Date Last Done Comments HEPATITIS C SCREENING 1963 RSV VACCINE (1 - 1-dose 75+ series) 2022 Adult Td,Tdap Booster 07/01/2023 07/01/2013 INFLUENZA VACCINE (#1) 2025 , 04/23/2023, 04/23/2023, Additional history exists COVID-19 VACCINE ( season) 2025 03/24/2023, 04/15/2022, 10/29/2021, Additional history exists DEPRESSION SCREENING 11/10/2025 11/10/2024 LIPID PANEL 10/31/2027 10/30/2022, 02/2022, 08/29/2021, Additional history exists OSTEOPOROSIS SCREENING [...] (10/30/2022 8:37 AM EDT) HDL 69 mg/dL [facility] Comment: Interpretation <40 mg/dL: Low HDL cholesterol (major risk factor for CHD) Greater than or equal to 60 mg/dL: High HDL cholesterol ( negative risk factor for CHD) HDL - cholesterol is affected by a number of factors, e.g. smoking, excerise, hormones, sex and age. CHOLESTEROL 195 0 - 240 mg/dL [facility] TRIGLYCERIDES 40 30 - 160 mg/dL [facility] LDL 118 50 - 129 mg/dL [facility] Comment: LDL levels in terms of risk for coronary heart disease: <100 mg/dL: Optimal 100-129 mg/dL: Near or above optimal 130-159 mg/dL: Borderline high 160-189 mg/dL: High >190 mg/dL: Very High CARDIAC RISK RATIO 2.8(L) 3.3 - 4.4 [facility] 10/30/2022 8:37 AM EDT 10/30/2022 8:42 AM EDT us Meliton Agudelo MD LAB BLOOD BKR ORDERABLES F inal Result [facility] [address] [place] [address] from Last 3 Months or Most Recently Relevant to Health Maintenance Insurance MEDICARE PART A & B [facility] MEDICARE SUPPLEMENT MEDICARE PART A & B [facility] [place] [id number] MEDICARE PART A & B [facility] MEDICARE SUPPLEMENT MEDICARE PART A & B [employer] MEDICARE SUPPLEMENT MEDICARE PART A & B [employer] MEDICARE SUPPLEMENT MEDICARE PART A & B [facility] MEDICARE SUPPLEMENT MEDICARE PART A & B [facility] MEDICARE SUPPLEMENT MEDICARE PART A & B [facility] MEDICARE SUPPLEMENT MEDICARE PART A & B [facility] MEDICARE SUPPLEMENT Care Teams Foot And Ankle Surgeon Relationship Specialty Start Date End Date Meliton Agudelo MD [address] [place] [address], [address] [place] [address] PCP - General Internal Medicine 11/05/21 Lamine Navarro MD [address] [place] [address] Gastroenterology 11/05/21 Iain Hicks MD [address] [place] [address] Ophthalmology 07/01/22 Meliton Agudelo MD [address] [place] [address], [address] [place] [address] Insurance Assigned Provider 09/27/23 Larry Anderson MD [address] [place] [address] Otolaryngology 11/10/23 Additional Source Comments The information contained in this document represents components of the legal health record. It is not the complete legal health record.[facility]
--- OUTSIDE RECORDS SUMMARY | 2025-05-16 14:34 | XMS_ITS | Clinical Summary ---
Author Organization [facility] [address] [facility] Address [address] [place] [address] Phone Care Team Providers Care Bolter Helper Name Role Phone Meliton Agudelo MD Primary Care Provider [phone] Allergies Active Allergy Reactions Criticality Noted Date Comments Azithromycin Nausea And Vomiting 04/20/2018 Erythromycin 08/26/2024 Levofloxacin 08/26/2024 Sulfamethoxazole-Trimethoprim 2024 Medications multivitamin-mi b-rfwc-BK-vit K 45 mg iron- 800 mcg-120 mcg [...] Noted Date Diagnosed Date SVT (supraventricular tachycardia) (CMS/[facility] V24) 08/26/2024 Irritable bowel syndrome without [...] Recently Relevant to Health Maintenance Insurance MEDICARE [facility] Care Teams Bolter Helper Relationship Specialty Start Date End Date Meliton Agudelo MD [address] [place] [address], [address] [place] [address] PCP - General Internal Medicine 08/26/24
--- OUTSIDE RECORDS SUMMARY | 2025-05-16 14:34 | XMS_ITS | Encounter Summary ---
Author Organization [facility] Address 399 [facility] [address] [place] [address] Phone Care Team Providers Care Compress Engineer Name Role Phone Meliton Agudelo MD Primary Care Provider [phone] Lamine Navarro MD Unavailable Iain Hicks MD Unavailable [phone] Meliton Agudelo MD Unavailable [phone] Larry Anderson MD Unavailable [phone] Encounter Details Date Type Department Care Team (Late st Contact Info) Description 04/09/2023 Procedure Pass [facility] [address] [place] [address] Social History Tobacco Use Types Packs/Day Years [...] high school, GED, job training, learning the Mohawk language, technical skills, or developing parenting skills)? 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, [employer]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 file documented as of this encounter Plan of Treatment Upcoming Encounters Date Type Department Care Team (Late st Contact Info) Description 06/27/2025 8:20 AM EST Office Visit [facility] [address] [place] [address] [place] [address] Tiarra Ojeda MD [address] [place] [address], [address] [place] [address] [email or web address] 11/15/2025 8:30 AM EDT Office Visit [facility] [address] [place] [address] [place] [address] Meliton Agudelo MD [address] [place] [address], [address] [place] [address] documented as of this encounter Visit Diagnoses Not on filedocumented in this encounter Additional Health Concerns Infection Onset Date Last Indicated Resolved Time COVID-19 05/05/2023 05/05/2023 05/26/2023 1:21 AM EST Assessment Noted Time PHQ-2 Depression Total Score: 0 11/05/19 9:02 AM EDT documented as of this encounter Care Teams Compress Engineer Relationship Specialty Start Date End Date Meliton Agudelo MD [address] [place] [address], [address] [place] [address] PCP - General Internal Medicine 11/05/21 Lamine Navarro MD [address] [place] [address] Gastroenterology 11/05/21 Iain Hicks MD [address] [place] [address] Ophthalmology 07/01/22 Meliton Agudelo MD [address] [place] [address] [place] [address] Insurance Assigned Provider 09/27/23 Larry Anderson MD [address] [place] [address] Otolaryngology 11/10/23 documented as of this encounter Additional Source Comments The information contained in this document represents components of the legal health record. It is not the complete legal health record.[facility]
--- OUTSIDE RECORDS SUMMARY | 2025-05-16 14:34 | XMS_ITS | Encounter Summary ---
Author Organization [facility] Address [address] [address] Phone Care Team Providers Care Track Coach Name Role Phone Som Adkins MD Primary Care Provider Deidra Agudelo MD Primary Care Provider [phone] Lamine Navarro MD Unavailable [phone] Iain Hicks MD Unavailable [phone] Deidra Agudelo MD Unavailable [phone] Larry Anderson MD Unavailable Encounter Details Date Type Department Care Team (Late st Contact Info) Description 04/12/2017 Ancillary Orders [facility] 30 [place] [address] Ken Bingham MD [address] [place], [place] [id number] Visit for screening mammogram Social History Tobacco [...] Description 06/27/2025 8:20 AM EST Office Visit [facility] [address] [place] [address] [place] [address] Tiarra Ojeda MD 22 [facility], [address] [place] [address] [email or web address] 11/15/2025 8:30 AM EDT Office Visit [facility] [address] [place] [address] Deidra Agudelo MD [address] [facility], [address] [place] [address] [email or web address] documented as of this encounter Results * [...] lowers the sensitivity of mammography. POS - [id number] Narrative 05/26/2017 7:56 AM EST 71-year-old female [...] whichlowers the sensitivity of mammography. POS - [id number] Ken Bingham MD IMG MG EXAMS Final Result documented in this encounter Visit Diagnoses Diagnosis Visit for screening mammogram Visit for screening mammogram documented in this encounter Additional Health Concerns Infection Onset Date Last Indicated Resolved Time CoV-Risk 01/22/2021 01/22/2021 02/01/2021 1:45 AM EDT COVID-19 05/05/2023 05/05/2023 05/26/2023 1:21 AM EST documented as of this encounter Care Teams Track Coach Relationship Specialty Start Date End Date JedSom MD [address] [place] [address] [address] [place] [address] [email or web address] PCP - General Internal Medicine 05/26/17 11/04/21 Deidra Agudelo MD [address] [place] [address], [address] [place] [address] [email or web address] PCP - General Internal Medicine 11/05/21 Lamine Navarro MD [address] [place] [address] Gastroenterology 11/05/21 Iain Hicks MD [address] [place] [address], [address] [place] [address] Ophthalmology 07/01/22 Deidra Agudelo MD [address] [place] [address], [address] [place] [address] [email or web address] Insurance Assigned Provider 09/27/23 Larry Anderson MD [address] [place] [address] [place] [address] Otolaryngology 11/10/23 documented as of this encounter Additional Source Comments The information contained in this document represents components of the legal health record. It is not the complete legal health record.[facility]
--- OUTSIDE RECORDS SUMMARY | 2025-05-16 14:34 | XMS_ITS | Encounter Summary ---
Author Organization [facility] Address 399 [facility] [address] [place] [address] Phone Care Team Providers Care Local Bulk Driver Name Role Phone Som Adkins MD Primary Care Provider Meliton Agudelo MD Primary Care Provider [phone] Lamine Navarro MD Unavailable [phone] Iain Hicks MD Unavailable [phone] Meliton Agudelo MD Unavailable Larry Anderson MD Unavailable Encounter Details Date Type Department Care Team (Late st Contact Info) Description 03/06/2020 Ancillary Orders Virtual Department 30 [place] [address] Som Adkins MD 264 [facility] [address] [place] [address] [email or web address] Breast screening Social History Tobacco Use [...] Visit [facility] [address] [place] [address] Tiarra Ojeda MD 22 [facility], [address] [place] [address] [email or web address] 11/15/2025 8:30 AM EDT Office Visit [facility] [address] [place] [address] Meliton Agudelo MD 22 [facility], [address] [place] [address] [email or web address] documented as of this [...] documented as of this encounter Care Teams Local Bulk Driver Relationship Specialty Start Date End Date Som Adkins MD [address] [place] [address] [address] [place] [address] [email or web address] PCP - General Internal Medicine 05/26/17 11/04/21 Meliton Agudelo MD [address] [place] [address], [address] [place] [address] [email or web address] PCP - General Internal Medicine 11/05/21 Lamine Navarro MD [address] [place] [address] Gastroenterology 11/05/21 Iain Hicks MD [address] [place] [address], [address] [place] [address] Ophthalmology 07/01/22 Meliton Agudelo MD [address] [place] [address], [address] [place] [address] [email or web address] Insurance Assigned Provider 09/27/23 Larry Anderson MD [address] [place] [address] [place] [address] Otolaryngology 11/10/23 documented as of this encounter Additional Source Comments The information contained in this document represents components of the legal health record. It is not the complete legal health record.[facility]
--- OUTSIDE RECORDS SUMMARY | 2025-05-16 14:34 | XMS_ITS | Encounter Summary ---
Author Organization [facility] Address [address] [address] Phone Care Team Providers Care Electronic Prepress Operator Name Role Phone Som Adkins MD Primary Care Provider [phone] Meliton Agudelo MD Primary Care Provider [phone] Lamine Navarro MD Unavailable [phone] Iain Hicks MD Unavailable [phone] Meliton Agudelo MD Unavailable [phone] Larry Anderson MD Unavailable Encounter Details Date Type Department Care Team (Late st Contact Info) Description 04/12/2017 Ancillary Orders [facility] [address] [place] [address] Ken Bingham MD 61 [place] [address] Social History Tobacco Use Types Packs/Day Years [...] Visit [facility] [address] [place] [address] Tiarra Ojeda MD 22 [facility], [address] [place] [address] [email or web address] 11/15/2025 8:30 AM EDT Office Visit [address] [address] Meliton Agudelo MD [address] [place] [address], [address] [place] [address] [email or web address] documented as of this encounter Visit Diagnoses Not on filedocumented in this encounter Additional Health Concerns Infection Onset Date Last Indicated Resolved Time CoV-Risk 01/22/2021 01/22/2021 02/01/2021 1:45 AM EDT COVID-19 05/05/2023 05/05/2023 05/26/2023 1:21 AM EST documented as of this encounter Care Teams Electronic Prepress Operator Relationship Specialty Start Date End Date JedSom MD [address] [place] [address] [address] [place] [address] [email or web address] PCP - General Internal Medicine 05/26/17 11/04/21 Meliton Agudelo MD [address] [place] [address], [address] [place] [address] [email or web address] PCP - General Internal Medicine 11/05/21 Lamine Navarro MD [address] [place] [address] Gastroenterology 11/05/21 Iain Hicks MD [address] [place] [address], [address] [place] [address] [email or web address] Ophthalmology 07/01/22 Meliton Agudelo MD [address] [place] [address] [address] [place] [address] [email or web address] Insurance Assigned Provider 09/27/23 Larry Anderson MD [address] [place] [address] [place] [address] Otolaryngology 11/10/23 documented as of this encounter Additional Source Comments The information contained in this document represents components of the legal health record. It is not the complete legal health record.[facility]
--- OUTSIDE RECORDS SUMMARY | 2025-05-16 14:34 | XMS_ITS | Encounter Summary ---
Author Organization [facility] Address 399 [facility] [address] [place] [address] Phone Care Team Providers Care Hydroelectric Plant Mechanical Engineer Name Role Phone Som Adkins MD Primary Care Provider Meliton Agudelo MD Primary Care Provider [phone] Lamine Navarro MD Unavailable [phone] Iain Hicks MD Unavailable [phone] Meliton Agudelo MD Unavailable [phone] Larry Anderson MD Unavailable Encounter Details Date Type Department Care Team (Late st Contact Info) Description 03/09/2021 Procedure Pass [address] [address] Social History Tobacco Use Types Packs/Day Years [...] Description 06/27/2025 8:20 AM EST Office Visit [facility] [address] [place] [address] [place] [address] Tiarra Ojeda MD 22 [facility], [address] [place] [address] 11/15/2025 8:30 AM EDT Office Visit [address] [address] Meliton Agudelo MD [address] [place] [address], [address] [place] [address] [email or web address] documented as of this encounter Visit Diagnoses Not on filedocumented in this encounter Additional Health Concerns Infection Onset Date Last Indicated Resolved Time COVID-19 05/05/2023 05/05/2023 05/26/2023 1:21 AM EST documented as of this encounter Care Teams Hydroelectric Plant Mechanical Engineer Relationship Specialty Start Date End Date Som Adkins MD [address] [place] [address] [address] [place] [address] [email or web address] PCP - General Internal Medicine 05/26/17 11/04/21 Meliton Agudelo MD [address] [place] [address], [address] [place] [address] PCP - General Internal Medicine 11/05/21 Lamine Navarro MD [address] [place] [address] Gastroenterology 11/05/21 Iain Hicks MD [address] [place] [address], [address] [place] [address] [email or web address] Ophthalmology 07/01/22 Meliton Agudelo MD [address] [place] [address], [address] [place] [address] Insurance Assigned Provider 09/27/23 Larry Anderson MD [address] [place] [address] [place] [address] Otolaryngology 11/10/23 documented as of this encounter Additional Source Comments The information contained in this document represents components of the legal health record. It is not the complete legal health record.[facility]
--- OUTSIDE RECORDS SUMMARY | 2025-05-16 14:34 | XMS_ITS | Encounter Summary ---
Author Organization [facility] Address 399 [facility] [address] [place] [address] Phone Care Team Providers Care Exceptional Needs Teacher Name Role Phone Som Adkins MD Primary Care Provider [phone] Meliton Agudelo MD Primary Care Provider [phone] Lamine Navarro MD Unavailable [phone] Iain Hicks MD Unavailable [phone] Meliton Agudelo MD Unavailable [phone] Larry Anderson MD Unavailable Encounter Details Date Type Department Care Team (Late st Contact Info) Description 11/04/2017 Ancillary Orders Virtual Department [address] [place] [address] Som Adkins MD 264 [facility] [place] [address] [place] [address] [email or web address] Breast screening; Trochanteric bursitis of [...] Department Care Team (Late Contact Info) Description 06/27/2025 8:20 AM EST Office Visit [facility] [address] [place] [address] Tiarra Ojeda MD [address] [place] [address], [address] [place] [address] [email or web address] 11/15/2025 8:30 AM EDT Office Visit [facility] [address] [place] [address] [place] [address] Meliton Agudelo MD [address] [place] [address], [address] [place] [address] [email or web address] [...] lowers the sensitivity of mammography. POS - [id number] Narrative 05/27/2018 9:14 AM EST STUDY: Bilateral [...] whichlowers the sensitivity of mammography. POS - [id number] us Som Adkins MD IMG MG EXAMS [...] documented as of this encounter Care Teams Exceptional Needs Teacher Relationship Specialty Start Date End Date JedSom MD [address] [place] [address] [address] [place] [address] [email or web address] PCP - General Internal Medicine 05/26/17 11/04/21 Meliton Agudelo MD [address] [place] [address], [address] [place] [address] [email or web address] PCP - General Internal Medicine 11/05/21 Lamine Navarro MD [address] [place] [address] Gastroenterology 11/05/21 Iain Hicks MD [address] [place] [address] Ophthalmology 07/01/22 Meliton Agudelo MD [address] [place] [address], [address] [place] [address] [email or web address] Insurance Assigned Provider 09/27/23 Larry Anderson MD [address] [place] [address] Otolaryngology 11/10/23 documented as of this encounter Additional Source Comments The information contained in this document represents components of the legal health record. It is not the complete legal health record.[facility]
--- OUTSIDE RECORDS SUMMARY | 2025-05-16 14:34 | XMS_ITS | Encounter Summary ---
Author Organization [facility] Address [address] [facility] [address] [place] [address] Phone Care Team Providers Care Workers Compensation Examiner Name Role Phone Som Adkins MD Primary Care Provider Meliton Agudelo MD Primary Care Provider [phone] Lamine Navarro MD Unavailable [phone] Iain Hicks MD Unavailable [phone] Meliton Agudelo MD Unavailable [phone] Larry Anderson MD Unavailable Encounter Details Date Type Department Care Team (Late st Contact Info) Description 05/20/2020 Procedure Pass Echo [facility] [address] [place] [address] Social History Tobacco Use Types Packs/Day Years [...] Office Visit [facility] [address] [place] [address] [place] [address] Tiarra Ojeda MD 22 [facility], [address] [place] [address] [email or web address] 11/15/2025 8:30 AM EDT Office Visit [address] [address] Meliton Agudelo MD [address] [place] [address], [address] [place] [address] [email or web address] documented as of this encounter Visit Diagnoses Not on filedocumented in this encounter Additional Health Concerns Infection Onset Date Last Indicated Resolved Time CoV-Risk 01/22/2021 01/22/2021 02/01/2021 1:45 AM EDT COVID-19 05/05/2023 05/05/2023 05/26/2023 1:21 AM EST documented as of this encounter Care Teams Workers Compensation Examiner Relationship Specialty Start Date End Date Som Adkins MD [address] [place] [address] 10 & 12 [place] [address] [email or web address] PCP - General Internal Medicine 05/26/17 11/04/21 Meliton Agudelo MD [address] [place] [address], [address] [place] [address] [email or web address] PCP - General Internal Medicine 11/05/21 Lamine Navarro MD [address] [place] [address] Gastroenterology 11/05/21 Iain Hicks MD [address] [place] [address], [address] [place] [address] [email or web address] Ophthalmology 07/01/22 Meliton Agudelo MD [address] [place] [address], [address] [place] [address] [email or web address] Insurance Assigned Provider 09/27/23 Larry Anderson MD [address] [place] [address] [place] [address] Otolaryngology 11/10/23 documented as of this encounter Additional Source Comments The information contained in this document represents components of the legal health record. It is not the complete legal health record.[facility]
--- OUTSIDE RECORDS SUMMARY | 2025-05-16 14:34 | XMS_ITS | Encounter Summary ---
Author Organization [facility] Address [address] [facility] [address] [place] [address] Phone Care Team Providers Care Machinist Mechanic Name Role Phone Som Adkins MD Primary Care Provider Meliton Agudelo MD Primary Care Provider [phone] Lamine Navarro MD Unavailable [phone] Iain Hicks MD Unavailable [phone] Meliton Agudelo MD Unavailable [phone] Larry Anderson MD Unavailable Encounter Details Date Type Department Care Team (Late st Contact Info) Description 03/06/2020 Procedure Pass [address] [address] Social History Tobacco Use Types Packs/Day Years [...] Description 06/27/2025 8:20 AM EST Office Visit [facility] [address] [place] [address] [place] [address] Tiarra Ojeda MD 22 [facility], [address] [place] [address] 11/15/2025 8:30 AM EDT Office Visit [address] [address] Meliton Agudelo MD [address] [place] [address], [address] [place] [address] [email or web address] documented as of this encounter Visit Diagnoses Not on filedocumented in this encounter Additional Health Concerns Infection Onset Date Last Indicated Resolved Time CoV-Risk 01/22/2021 01/22/2021 02/01/2021 1:45 AM EDT COVID-19 05/05/2023 05/05/2023 05/26/2023 1:21 AM EST documented as of this encounter Care Teams Machinist Mechanic Relationship Specialty Start Date End Date Som Adkins MD [address] [place] [address] 10 [address] [place] [address] [email or web address] PCP - General Internal Medicine 05/26/17 11/04/21 Meliton Agudelo MD [address] [place] [address], [address] [place] [address] [email or web address] PCP - General Internal Medicine 11/05/21 Lamine Navarro MD [address] [place] [address] Gastroenterology 11/05/21 Iain Hicks MD [address] [place] [address], [address] [address] [email or web address] Ophthalmology 07/01/22 Meliton Agudelo MD [address] [place] [address], [address] [place] [address] [email or web address] Insurance Assigned Provider 09/27/23 Larry Anderson MD [address] [place] [address] [place] [address] Otolaryngology 11/10/23 documented as of this encounter Additional Source Comments The information contained in this document represents components of the legal health record. It is not the complete legal health record.[facility]
--- OUTSIDE RECORDS SUMMARY | 2025-05-16 14:34 | XMS_ITS | Encounter Summary ---
Author Organization [facility] Address [address] [facility] [address] [place] [address] Phone Care Team Providers Care Green Building Design Specialist Name Role Phone Meliton Agudelo MD Primary Care Provider [phone] Lamine Navarro MD Unavailable [phone] Iain Hicks MD Unavailable [phone] Meliton Agudelo MD Unavailable [phone] Larry Anderson MD Unavailable [phone] Encounter Details Date Type Department Care Team (Late st Contact Info) Description 04/12/2024 Procedure Pass [facility], [facility] [address] [place] [address] Social History Tobacco Use Types Packs/Day Years [...] 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, [employer]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 file documented as of this encounter Plan of Treatment Upcoming Encounters Date Type Department Care Team (Late st Contact Info) Description 06/27/2025 8:20 AM EST Office Visit [facility] [address] [place] [address] Tiarra Ojeda MD 22 [facility], [address] [place] [address] 11/15/2025 8:30 AM EDT Office Visit [facility] [place] [facility] [address] [place] [address] [place] [address] Meliton Agudelo MD [address] [place] [address], [address] [place] [address] documented as of this encounter Visit Diagnoses Not on filedocumented in this encounter Additional Health Concerns Assessment Noted Time PHQ-2 Depression Total Score: 0 11/10/19 8:49 AM EDT documented as of this encounter Care Teams Green Building Design Specialist Relationship Specialty Start Date End Date Meliton Agudelo MD [address] [place] [address], [address] [place] [address] PCP - General Internal Medicine 11/05/21 Lamine Navarro MD [address] [place] [address] Gastroenterology 11/05/21 Iain Hicks MD [address] [place] [address] Ophthalmology 07/01/22 Meliton Agudelo MD [address] [place] [address], [address] [place] [address] Insurance Assigned Provider 09/27/23 Larry Anderson MD [address] [place] [address] Otolaryngology 11/10/23 documented as of this encounter Additional Source Comments The information contained in this document represents components of the legal health record. It is not the complete legal health record.[facility]
--- OUTSIDE RECORDS SUMMARY | 2025-05-16 14:34 | XMS_ITS | Encounter Summary ---
Author Organization [facility] Address [address] [facility] [address] [place] [address] Phone Care Team Providers Care Dehydrator Name Role Phone Som Adkins MD Primary Care Provider Meliton Agudelo MD Primary Care Provider [phone] Lamine Navarro MD Unavailable [phone] Iain Hicks MD Unavailable [phone] Meliton Agudelo MD Unavailable [phone] Larry Anderson MD Unavailable [phone] Reason for Referral * Physical Therapy (Routine) - Closed Specialty Diagnoses / Procedures Referred By Geoff lee Referred To Contact Physical Therapy Diagnoses Encounter for rehabilitation Som Adkins MD Phone: tel: fax: [email or web address] [address] [place] [address] Phone: tel: Referral ID Status Reason Start Date Expiration Date Visits Re quested Visits Authorized [id number] Closed 11/25/2017 06/22/2018 99 [phone] Encounter Details Date Type Department Care Team (Latest Contact Info) Description 11/04/2017 Transcribe Orders [facility] [address] [place] [address] Som Adkins MD [address] [place] [address] [address] [email or web address] Encounter for rehabilitation (Primary Dx) Social History [...] Description 06/27/2025 8:20 AM EST Office Visit [facility] [address] [place] [address] Tiarra Ojeda MD [address] [place] [address], [address] [place] [address] [email or web address] 11/15/2025 8:30 AM EDT Office Visit [facility] [address] [place] [address] [place] [address] Meliton Agudelo MD [address] [place] [address], [address] [place] [address] [email or web address] Scheduled Referrals Name Type Priority Associated Diagnoses Orde r Schedule Ambulatory referral to [facility] Physical Therapy Outpatient Referral Routine Encounter for rehabilitation Ordered: 11/04/2017 documented as of this encounter Visit Diagnoses Diagnosis Encounter for rehabilitation- Primary documented in this encounter Additional Health Concerns Infection Onset Date Last Indicated Resolved Time CoV-Risk 01/22/2021 01/22/2021 02/01/2021 1:4 5 AM EDT COVID-19 05/05/2023 05/05/2023 05/26/2023 1:21 AM EST documented as of this encounter Care Teams Dehydrator Relationship Specialty Start Date End Date Som Adkins MD [address] [place] [address] 10 [address] [place] [address] [email or web address] PCP - General Internal Medicine 05/26/17 11/04/21 Meliton Agudelo MD [address] [place] [address], [address] [place] [address] PCP - General Internal Medicine 11/05/21 Lamine Navarro MD [address] [place] [address] Gastroenterology 11/05/21 Iain Hicks MD [address] [place] [address], [address] [place] [address] Ophthalmology 07/01/22 Meliton Agudelo MD [address] [place] [address], [address] [place] [address] Insurance Assigned Provider 09/27/23 Larry Anderson MD [address] [place] [address] Otolaryngology 11/10/23 documented as of this encounter Additional Source Comments The information contained in this document represents components of the legal health record. It is not the complete legal health record.[facility]
== END 2025-05-16 11:15 | disposition home or self-care (01) ==
LOC: HO.HMGAL 11:13
PROVIDERS: PCP Internal Medicine; Visit Provider Registered Nurse Emergency
DX: J30.89 Other allergic rhinitis (principal)
CPT/HCPCS: 95117; 95165

== ENCOUNTER 2025-06-13 09:36 | Outpatient (AMB) | payer MEDICARE, OTHER, SELFPAY ==
--- OUTSIDE RECORDS SUMMARY | 2025-06-13 10:59 | XMS_ITS | Encounter Summary ---
Author Organization [facility] Address [address] [facility] [address] [place] [address] Phone Care Team Providers Care Sheet Metal Shop Helper Name Role Phone Som Adkins MD Primary Care Provider Meliton Agudelo MD Primary Care Provider [phone] Lamine Navarro MD Unavailable [phone] Iain Hicks MD Unavailable [phone] Meliton Agudelo MD Unavailable Larry Anderson MD Unavailable Encounter Details Date Type Department Care Team (Late st Contact Info) Description 03/01/2019 Ancillary Orders Virtual Department 30 [place] [address] Som Adkins MD 264 [facility] [address] [place] [address] [email or web address] Breast [email or web address] Social History Tobacco Use Types [...] Description 06/27/2025 8:20 AM EST Office Visit [facility] [address] [place] [address] Tiarra Ojeda MD 22 [facility], [address] [place] [address] [email or web address] 11/15/2025 8:30 AM EDT Office Visit [facility] [address] [place] [address] Meliton Agudelo MD 22 [facility], [address] [place] [address] [email or web address] documented as of this encounter Results * [...] documented as of this encounter Care Teams Sheet Metal Shop Helper Relationship Specialty Start Date End Date JedSom MD [address] [place] [address] 10 [address] [place] [address] [email or web address] PCP - General Internal Medicine 05/26/17 11/04/21 Meliton Agudelo MD [address] [place] [address], [address] [place] [address] [email or web address] PCP - General Internal Medicine 11/05/21 Lamine Navarro MD [address] [place] [address] Gastroenterology 11/05/21 Iain Hicks MD [address] [place] [address], [address] [place] [address] Ophthalmology 07/01/22 Meliton Agudelo MD [address] [place] [address], [address] [place] [address] [email or web address] Insurance Assigned Provider 09/27/23 Larry Anderson MD [address] [place] [address] [place] [address] Otolaryngology 11/10/23 documented as of this encounter Additional Source Comments The information contained in this document represents components of the legal health record. It is not the complete legal health record.[facility]
--- OUTSIDE RECORDS SUMMARY | 2025-06-13 10:59 | XMS_ITS | Encounter Summary ---
Author Organization [facility] Address [address] [facility] [address] [place] [address] Phone Care Team Providers Care College Or University Registrar Name Role Phone Meliton Agudelo MD Primary Care Provider [phone] Lamine Navarro MD Unavailable [phone] Iain Hicks MD Unavailable [phone] Meliton Agudelo MD Unavailable [phone] Larry Anderson MD Unavailable Encounter Details Date Type Department Care Team (Late st Contact Info) Description 08/25/2023 Ancillary Orders [facility] 30 [place], [place] [address] Meliton Agudelo MD 22 [facility], [address] [place] [address] [email or web address] Abnormal finding on mammography (Primary [...] 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, [employer]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 file documented as of this encounter Plan of Treatment Upcoming Encounters Date Type Department Care Team (Late st Contact Info) Description 06/27/2025 8:20 AM EST Office Visit [facility]ne[facility] Clinic [address] [place] [address] [place] [address] Tiarra Ojeda MD [address] [place] [address], [address] [place] [address] 11/15/2025 8:30 AM EDT Office Visit [facility] [address] [place] [address] [place] [address] Meliton Agudelo MD [address] [place] [address], [address] [place] [address] [email or web address] documented as of this encounter Results * [...] documented as of this encounter Care Teams College Or University Registrar Relationship Specialty Start Date End Date Meliton Agudelo MD [address] [place] [address], [address] [place] [address] PCP - General Internal Medicine 11/05/21 Lamine Navarro MD [address] [place] [address] Gastroenterology 11/05/21 Iain Hicks MD [address] [place] [address], [address] [place] [address] [email or web address] Ophthalmology 07/01/22 Meliton Agudelo MD [address] [place] [address], [address] [place] [address] [email or web address] Insurance Assigned Provider 09/27/23 Larry Anderson MD [address] [place] [address] Dr [place] [address] Otolaryngology 11/10/23 documented as of this encounter Additional Source Comments The information contained in this document represents components of the legal health record. It is not the complete legal health record.[facility]
--- OUTSIDE RECORDS SUMMARY | 2025-06-13 10:59 | XMS_ITS | Encounter Summary ---
Author Organization [facility] Address [address] [facility] [address] [place] [address] Phone Care Team Providers Care Vice President & General Manager [employer] Name Role Phone Meliton Agudelo MD Primary Care Provider [phone] Lamine Navarro MD Unavailable [phone] Iain Hicks MD Unavailable [phone] Meliton Agudelo MD Unavailable [phone] Larry Anderson MD Unavailable [phone] Encounter Details Date Type Department Care Team (Late st Contact Info) Description 08/25/2023 Procedure Pass [facility], [facility] [address] [place] [address] Social History Tobacco Use Types Packs/Day Years [...] high school, GED, job training, learning the Estonian language, technical skills, or developing parenting skills)? 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necology Clinic [address] [place] [address] [place] [address] Tiarra Ojeda MD [address] [place] [address], [address] [place] [address] 11/15/2025 8:30 AM EDT Office Visit [facility] [address] [place] [address] [place] [address] Meliton Agudelo MD [address] [place] [address], [address] [place] [address] documented as of this encounter Visit Diagnoses Not on filedocumented in this encounter Additional Health Concerns Assessment Noted Time PHQ-2 Depression Total Score: 0 11/05/19 23 9:02 AM EDT documented as of this encounter Care Teams Vice President & General Manager [employer] Relationship Specialty Start Date End Date Meliton Agudelo MD [address] [place] [address], [address] [place] [address] PCP - General Internal Medicine 11/05/21 Lamine Navarro MD [address] [place] [address] Gastroenterology 11/05/21 Iain Hicks MD [address] [place] [address] Ophthalmology 07/01/22 Meliton Agudelo MD [address] [place] [address], [address] [place] [address] Insurance Assigned Provider 09/27/23 Larry Anderson MD [address] [place] [address] Otolaryngology 11/10/23 documented as of this encounter Additional Source Comments The information contained in this document represents components of the legal health record. It is not the complete legal health record.[facility]
--- OUTSIDE RECORDS SUMMARY | 2025-06-13 10:59 | XMS_ITS | Patient Health Record ---
[facility] Address [address] [place] [address] Care Team Providers Care Cell Attendant Name Role Phone Magnus WATSON, Meliton Primary Care Provider Ra Velez Unavailable [phone] Allergies Allergen (clinical drug ingredient) Drug/Non Drug [...] a day; Duration: 30 day(s) Active Nystatin 836947 UNIT 1 tablet Orally every 8 hrs; [...] Status Risk Notes Problem Acquired hallux rigidus (9707007) Hallux rigidus, left foot (M20.22) Active confirmed Problem Acquired hallux rigidus (4728376) Hallux rigidus, right foot (M20.21) Active confirmed Plan Of Treatment Pending Test Test Name Order Date X ray : Foot, right 3V 03/15/2019 Insurance Providers Payer Name Payer Address Payer Phone Subscriber Number Group Number Insured Name Patient Relationship to Insured Coverage Start Date Coverage End Date Medicare National [employer] [address] [place] [address] [id number] Tamara Bernal Self - patient is the insured [facility] [address] [place] [address] [id number] Tamara Bernal Self - patient is the insured Medical (General) History Medical History History ICD Code Measles Mumps Supraventricular tachycardia Surgical History Surgery Date(Month/Year) appendectomy ovarian surgery- right removed eye surgery-Blocked tear duct right eye 02/08/2019 eye surgery- blocked tear duct-right eye 03/24/2019
--- OUTSIDE RECORDS SUMMARY | 2025-06-13 10:59 | XMS_ITS | Encounter Summary ---
Author Organization [facility] Address [address] [facility] [address] [place] [address] Phone Care Team Providers Care Trichologist Name Role Phone Meliton Agudelo MD Primary Care Provider [phone] Lamine Navarro MD Unavailable [phone] Iain Hicks MD Unavailable [phone] Meliton Agudelo MD Unavailable [phone] Larry Anderson MD Unavailable [phone] Encounter Details Date Type Department Care Team (Late st Contact Info) Description 03/19/2022 Procedure Pass [facility], [facility] [address] [place] [address] Social History Tobacco Use Types Packs/Day Years [...] high school, GED, job training, learning the Uzbek language, technical skills, or developing parenting skills)? 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 file documented as of this encounter Plan of Treatment Upcoming Encounters Date Type Department Care Team (Late st Contact Info) Description 06/27/2025 8:20 AM EST Office Visit [facility]ne[facility] Clinic [address] [place] [address] [place] [address] Tiarra Ojeda MD [address] [place] [address], [address] [place] [address] 11/15/2025 8:30 AM EDT Office Visit [facility] [address] [place] [address] [place] [address] Meliton Agudelo MD [address] [place] [address], [address] [place] [address] documented as of this encounter Visit Diagnoses Not on filedocumented in this encounter Additional Health Concerns Infection Onset Date Last Indicated Resolved Time COVID-19 05/05/2023 05/05/2023 05/26/2023 1:21 AM EST Assessment Noted Time PHQ-2 Depression Total Score: 0 11/06/19 9:20 AM EDT documented as of this encounter Care Teams Trichologist Relationship Specialty Start Date End Date Meliton Agudelo MD [address] [place] [address], [address] [place] [address] PCP - General Internal Medicine 11/05/21 Lamine Navarro MD [address] [place] [address] Gastroenterology 11/05/21 Iain Hicks MD [address] [place] [address], [address] [address] [email or web address] Ophthalmology 07/01/22 Meliton Agudelo MD [address] [place] [address], [address] [place] [address] [email or web address] Insurance Assigned Provider 09/27/23 Larry Anderson MD [address] [place] [address] Otolaryngology 11/10/23 documented as of this encounter Additional Source Comments The information contained in this document represents components of the legal health record. It is not the complete legal health record.[facility]
--- OUTSIDE RECORDS SUMMARY | 2025-06-13 10:59 | XMS_ITS | Encounter Summary ---
Author Organization [facility] Address [address] [facility] [address] [place] [address] Phone Care Team Providers Care Sole Layer Hand Name Role Phone Meliton Agudelo MD Primary Care Provider [phone] Lamine Navarro MD Unavailable [phone] Iain Hicks MD Unavailable [phone] Meliton Agudelo MD Unavailable [phone] Larry Anderson MD Unavailable Encounter Details Date Type Department Care Team (Latest Contact Info) Description 04/09/2023 Transcribe Orders Virtual Department [address] [place], [place] [id number] Meliton Agudelo MD 22 [facility], [address] [place] [address] [email or web address] Encounter for screening mammogram for [...] high school, GED, job training, learning the Guyanese language, technical skills, or developing parenting skills)? 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 file documented as of this encounter Plan of Treatment Upcoming Encounters Date Type Department Care Team (Late st Contact Info) Description 06/27/2025 8:20 AM EST Office Visit [facility] [address] [place] [address] Tiarra Ojeda MD [address] [place] [address], [address] [place] [address] 11/15/2025 8:30 AM EDT Office Visit [facility] [address] [place] [address] Meliton Agudelo MD [address] [place] [address], [address] [place] [address] [email or web address] documented as of this encounter Results * [...] documented as of this encounter Care Teams Sole Layer Hand Relationship Specialty Start Date End Date Meliton Agudelo MD [address] [place] [address], [address] [place] [address] PCP - General Internal Medicine 11/05/21 Lamine Navarro MD [address] [place] [address] Gastroenterology 11/05/21 Iain Hicks MD [address] [place] [address], [address] [place] [address] Ophthalmology 07/01/22 Meliton Agudelo MD [address] [place] [address], [address] [place] [address] [email or web address] Insurance Assigned Provider 09/27/23 Larry Anderson MD [address] [place] [address] Otolaryngology 11/10/23 documented as of this encounter Additional Source Comments The information contained in this document represents components of the legal health record. It is not the complete legal health record.[facility]
--- OUTSIDE RECORDS SUMMARY | 2025-06-13 11:00 | XMS_ITS | Encounter Summary ---
Author Organization [facility] Address [address] [facility] [address] [place] [address] Phone Care Team Providers Care Meteorological Engineer Name Role Phone Meliton Agudelo MD Primary Care Provider [phone] Lamine Navarro MD Unavailable Iain Hicks MD Unavailable [phone] Meliton Agudelo MD Unavailable [phone] Larry Anderson MD Unavailable [phone] Encounter Details Date Type Department Care Team (Late st Contact Info) Description 04/09/2023 Procedure Pass [facility] [address] [place] [address] Social History Tobacco Use Types Packs/Day Years [...] high school, GED, job training, learning the Divehi language, technical skills, or developing parenting skills)? 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 file documented as of this encounter Plan of Treatment Upcoming Encounters Date Type Department Care Team (Late st Contact Info) Description 06/27/2025 8:20 AM EST Office Visit [facility] Obstetrics and Gynecology Clinic [address] [place] [address] [place] [address] Tiarra Ojeda MD [address] [place] [address], [address] [place] [address] 11/15/2025 8:30 AM EDT Office Visit [facility] Primary Care Clinic [address] [place] [address] [place] [address] Meliton Agudelo MD [address] [place] [address], [address] [place] [address] documented as of this encounter Visit Diagnoses Not on filedocumented in this encounter Additional Health Concerns Infection Onset Date Last Indicated Resolved Time COVID-19 05/05/2023 05/05/2023 05/26/2023 1:21 AM EST Assessment Noted Time PHQ-2 Depression Total Score: 0 11/05/19 9:02 AM EDT documented as of this encounter Care Teams Meteorological Engineer Relationship Specialty Start Date End Date Meliton Agudelo MD [address] [place] [address], [address] [place] [address] PCP - General Internal Medicine 11/05/21 Lamine Navarro MD [address] [place] [address] Gastroenterology 11/05/21 Iain Hicks MD [address] [place] [address], [address] [address] [email or web address] Ophthalmology 07/01/22 Meliton Agudelo MD [address] [place] [address], [address] [place] [address] Insurance Assigned Provider 09/27/23 Larry Adnerson MD [address] [place] [address] Dr ORDOÑEZ [address] [place] [address] Otolaryngology 11/10/23 documented as of this encounter Additional Source Comments The information contained in this document represents components of the legal health record. It is not the complete legal health record.[facility]
--- OUTSIDE RECORDS SUMMARY | 2025-06-13 11:00 | XMS_ITS | Clinical Summary ---
Author Organization [facility] Address [address] [address] Phone Care Team Providers Care Collection Manager Name Role Phone Meliton Agudelo MD Primary Care Provider [phone] Lamine Navarro MD Unavailable [phone] Iain Hicks MD Unavailable [phone] Meliton Agudelo MD Unavailable [phone] Larry Anderson MD Unavailable Allergies Active Allergy [...] e fluticasone propionate (FLONASE) 50 mcg/actuation nasal sprayIndication s:Non-seasonal allergic rhinitis due to other allergic trigger SPRAY 2 SPRAYS BY NASAL ROUTE 2 (TWO) TIMES A DAY NEEDED 48 mL 1 5 Active TOPROL XL 25 mg 24 hr tablet TAKE 1 TABLET BY MOUTH EACH EVENING. MAY TAKE EXTRA 1/2 PER DAY NEEDED FOR PALPITATIONS 120 tablet 3 5 Active Active Problems Problem Noted Date [...] to plan. She has follow up with [facility] in early June. 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 [...] Description 06/27/2025 8:20 AM EST Office Visit [facility] Obstetrics and Gynecology Clinic [address] [place] [address] [place] [address] Tiarra Ojeda MD [address] [place] [address], [address] [place] [address] [email or web address] 11/15/2025 8:30 AM EDT Office Visit [facility] Care Clinic [address] [place] [address] [place] [address] Meliton Agudelo MD [address] [place] [address], [address] [place] [address] [email or web address] Health Maintenance Due Date Last Done Comments [...] (10/30/2022 8:37 AM EDT) HDL 69 mg/dL [facility] Comment: Interpretation <40 mg/dL: Low HDL cholesterol (major risk factor for CHD) Greater than or equal to 60 mg/dL: High HDL cholesterol ( negative risk factor for CHD) HDL - cholesterol is affected by a number of factors, e.g. smoking, excerise, hormones, sex and age. CHOLESTEROL 195 0 - 240 mg/dL [facility] TRIGLYCERIDES 40 30 - 160 mg/dL [facility] LDL 118 50 - 129 mg/dL [facility] Comment: LDL levels in terms of risk for coronary heart disease: <100 mg/dL: Optimal 100-129 mg/dL: Near or above optimal 130-159 mg/dL: Borderline high 160-189 mg/dL: High >190 mg/dL: Very High CARDIAC RISK RATIO 2.8(L) 3.3 - 4.4 C [facility] 10/30/2022 8:37 AM EDT 10/30/2022 8:42 AM EDT us Meliton Agudelo MD LAB BLOOD BKR ORDERABLES F inal Result [facility] 30 [place] [address] from Last 3 Months or Most Recently Relevant to Health Maintenance Insurance MEDICARE PART A & B [facility] [employer] MEDICARE SUPPLEMENT MEDICARE PART A & [facility] EXTENSION MEDICARE SUPPLEMENT MEDICARE PART A & B [facility] [employer]ION MEDICARE SUPPLEMENT MEDICARE PART A & B Member Subscriber Plan / Payer ( fective 2014-Present) Name:Tamara Bernal Member ID:[id number] Relation to Subscriber:Self Name:Tamara Bernal Subscriber ID:[id number] Payer ID:[id number] Group ID:Not on file Type:Medicare Address: [employer] [address] [place] [id number] [place] [address] MEDICARE SUPPLEMENT MEDICARE PART A & B [facility] EXTENSION MEDICARE SUPPLEMENT MEDICARE PART A & B [employer] MEDICARE SUPPLEMENT MEDICARE PART A & B [employer] MEDICARE SUPPLEMENT MEDICARE PART A & B Member Subscriber Plan / Payer (Ef fective 2014-Present) Name:Dolores Tamara Member ID:[id number] Relation to Subscriber:Self Name:Dolores, Tamara Subscriber ID:[id number] Payer ID:[id number] Group ID:Not on file Type:Medicare Address: [facility] [employer] [facility] [address] [place] [id number] [facility] MEDICARE SUPPLEMENT MEDICARE PART A & B [facility] [employer]ION MEDICARE SUPPLEMENT Care Teams Collection Manager Relationship Specialty Start Date End Date Meliton Agudelo MD [address] [place] [address], [address] [place] [address] PCP - General Internal Medicine 11/05/21 Lamine Navarro MD [address] [place] [address] Gastroenterology 11/05/21 Iain Hicks MD [address] [place] [address] Ophthalmology 07/01/22 Meliton Agudelo MD [address] [place] [address], [address] [place] [address] Insurance Assigned Provider 09/27/23 Larry Anderson MD [address] [place] [address] Dr ORDOÑEZ [address] [place] [address] Otolaryngology 11/10/23 Additional Source Comments The information contained in this document represents components of the legal health record. It is not the complete legal health record.[facility]
--- OUTSIDE RECORDS SUMMARY | 2025-06-13 11:00 | XMS_ITS | Encounter Summary ---
Author Organization [facility] Address [address] [facility] [address] [place] [address] Phone Care Team Providers Care Medical Staff Assistant Name Role Phone Som Adkins MD Primary Care Provider Meliton Agudelo MD Primary Care Provider [phone] Lamine Navarro MD Unavailable [phone] Iain Hicks MD Unavailable [phone] Meliton Agudelo MD Unavailable [phone] Larry Anderson MD Unavailable [phone] Encounter Details Date Type Department Care Team (Latest Contact Info) Description 07/31/2017 Transcribe Orders [address] [address] JedSom hernández MD [address] [facility] [address] [place] [address] [email or web address] Routine medical exam (Primary Dx); High cholesterol; [...] Description 06/27/2025 8:20 AM EST Office Visit [facility] Obstetrics and Gynecology Clinic [address] [place] [address] Tiarra Ojeda MD 22 [facility], [address] [place] [address] [email or web address] 11/15/2025 8:30 AM EDT Office Visit [facility] Primary Care [facility] [address] [place] [address] Meliton Agudelo MD 22 [facility], [address] [place] [address] [email or web address] documented as of this encounter Results * CBC and differential (07/31/2017 7:56 AM EST) WBC 5.60 3.40 - 11.20 K/uL [facility] RBC 4.57 3.80 - 4.80 M/uL [facility] HGB 13.8 12.0 - 15.0 g/dL [facility] HCT 42.1 36.0 - 46.0 % [facility] PLT 293 130 - 400 K/uL [facility] MCV 92.1 79.0 - 98.0 fL [facility] MCH 30.2 27.0 - 34.8 pg [facility] MCHC 32.8 31.5 - 36.0 g/dL [facility] RDW 12.7 10.8 - 14.6 % [facility] MPV 10.6 9.4 - 12.4 fl [facility] NRBC 0.00 /100 WBCs [facility] ABSOLUTE NRBC 0.00 K/uL [facility] DIFF METHOD Auto [facility] NEUTS 52.8 45.30 - 77.70 % [facility] LYMPHS 32.5 12.30 - 39.70 % [facility] MONOS 9.5 4.10 - 12.80 % [facility] EOS 3.9 0 - 7.2 % [facility] BASOS 1.1 0 - 2.80 % [facility] Granulocytes, immature (%) 0.2 0.0 - 0.9 % [facility] ABSOLUTE NEUTS 2.96 1.40 - 7.70 K/uL [facility] ABSOLUTE LYMPHS 1.82 0.60 - 3.20 K/uL [facility] ABSOLUTE MONOS 0.53 0.11 - 0.59 K/uL [facility] ABSOLUTE EOS 0.22 0.01 - 0.50 K/uL [facility] ABSOLUTE BASOS 0.06 0.00 - 0.08 K/uL [facility] Granulocytes, immature 0.01 0.00 - 0.05 K/uL [facility] Blood 07/31/2017 7:56 AM EST 07/31/2017 8:01 AM EST Som Adkins MD LAB BLOOD BKR ORDERABLES Final Result Performing Organization Address [facility]/ZIP Co de Phone Number [address] [address] * TSH (07/31/2017 7:56 AM EST) TSH 3.24 0.27 - 4.20 uIU/mL [facility] Blood 07/31/2017 7:56 AM EST 07/31/2017 8:01 AM EST Som Adkins MD LAB BLOOD BKR ORDERABLES Final Result Performing Organization Address [facility] Co de Phone Number [address] [address] * (ABNORMAL) Lipid panel (07/31/2017 7:56 AM EST) HDL 76 mg/dL [facility] Comment: Interpretation: Risk Level Females Decreased >55mg/dL Average 50-55 mg/dL Increased <50 mg/dL CHOLESTEROL 210 0 - 240 mg/dL [facility] TRIGLYCERIDES 43 30 - 160 mg/dL [facility] LDL 125 50 - 129 mg/dL [facility] Comment: LDL levels in terms of risk for coronary heart disease: <100 mg/dL: Optimal 100-129 mg/dL: Near or above optimal 130-159 mg/dL: Borderline high 160-189 mg/dL: High >190 mg/dL: Very High CARDIAC RISK RATIO 2.8(L) 3.3 - 4.4 C [facility] Blood 07/31/2017 7:56 AM EST 07/31/2017 8:01 AM EST Som Adkins MD LAB BLOOD BKR ORDERABLES Final Result Performing Organization Address City/[facility]/ZIP Co de Phone Number [address] [address] * Comprehensive metabolic panel (07/31/2017 7:56 AM EST) SODIUM 142 133 - 146 mmol/L [facility] POTASSIUM 4.6 3.3 - 5.1 mmol/L [facility] CHLORIDE 102 96 - 108 mmol/L [facility] CO2 30 21 - 35 mmol/L [facility] BUN 15 6 - 19 mg/dL [facility] CREATININE 0.70 0.5 - 1.5 mg/dL [facility] GLUCOSE 80 70 - 99 mg/dL [facility] ALBUMIN 4.3 3.9 - 4.8 g/dL [facility] TOTAL PROTEIN 7.1 6.5 - 8.0 g/dL [facility] CALCIUM 9.4 8.4 - 10.3 mg/dL [facility] ALKALINE PHOSPHATASE 65 39 - 117 U/L [facility] TOTAL BILIRUBIN 0.6 0 - 1.2 mg/dL [facility] AST 25 0 - 37 U/L [facility] ALT 11 0 - 40 U/L [facility] GLOBULIN 2.8 1 - 4.8 g/dL [facility] EGFR >60 mL/min/1.7 3m2 [facility] Comment:Abnormal if <60. If patient is -Turkish, multiply the result by 1.21. ANION GAP 15 10 - 20 mmol/L [facility] Blood 07/31/2017 7:56 AM EST 07/31/2017 8:01 AM EST Som Adkins MD LAB BLOOD BKR ORDERABLES Final Result Performing Organization Address [facility]/ZIP Co de Phone Number [address] [address] documented in this encounter Visit Diagnoses Diagnosis Routine medical exam- Primary Routine general medical examination at a health care facility High cholesterol Pure hypercholesterolemia Fatigue, unspecified type documented in this encounter Additional Health Concerns Infection Onset Date Last Indicated Resolved Time CoV-Risk 01/22/2021 01/22/2021 02/01/2021 1:45 AM EDT COVID-19 05/05/2023 05/05/2023 05/26/2023 1:21 AM EST documented as of this encounter Care Teams Medical Staff Assistant Relationship Specialty Start Date End Date JedSom MD [address] [place] [address] [address] [place] [address] [email or web address] PCP - General Internal Medicine 05/26/17 11/04/21 Meliton Agudelo MD [address] [place] [address], [address] [place] [address] PCP - General Internal Medicine 11/05/21 Lamine Navarro MD [address] [place] [address] Gastroenterology 11/05/21 Iain Hicks MD [address] [place] [address] Ophthalmology 07/01/22 Meliton Agudelo MD [address] [place] [address], [address] [place] [address] Insurance Assigned Provider 09/27/23 Larry Anderson MD [address] [place] [address] [place] [address] Otolaryngology 11/10/23 documented as of this encounter Additional Source Comments The information contained in this document represents components of the legal health record. It is not the complete legal health record.[facility]
--- OUTSIDE RECORDS SUMMARY | 2025-06-13 11:00 | XMS_ITS | Encounter Summary ---
Author Organization [facility] Address [address] [facility] [address] [place] [address] Phone Care Team Providers Care Hairspring Ii Inspector Name Role Phone Som Adkins MD Primary Care Provider [phone] Meliton Agudelo MD Primary Care Provider [phone] Lamine Navarro MD Unavailable [phone] Iain Hicks MD Unavailable [phone] Meliton Agudelo MD Unavailable Larry Anderson MD Unavailable Encounter Details Date Type Department Care Team (Late st Contact Info) Description 03/06/2020 Procedure Pass [facility], [address] [address] Social History Tobacco Use Types Packs/Day Years [...] [facility] [address] [place] [address] Tiarra Ojeda MD 22 [facility], [address] [place] [address] 11/15/2025 8:30 AM EDT Office Visit [facility] Primary Care [address] [address] Meliton Agudelo MD [address] [place] [address], [address] [place] [address] [email or web address] documented as of this encounter Visit Diagnoses Not on filedocumented in this encounter Additional Health Concerns Infection Onset Date Last Indicated Resolved Time CoV-Risk 01/22/2021 01/22/2021 02/01/2021 1:45 AM EDT COVID-19 05/05/2023 05/05/2023 05/26/2023 1:21 AM EST documented as of this encounter Care Teams Hairspring Ii Inspector Relationship Specialty Start Date End Date Som Adkins MD [address] [place] [address] [address] [place] [address] [email or web address] PCP - General Internal Medicine 05/26/17 11/04/21 Meliton gAudelo MD [address] [place] [address], [address] [place] [address] [email or web address] PCP - General Internal Medicine 11/05/21 Lamine Navarro MD [address] [place] [address] Gastroenterology 11/05/21 Iain Hicks MD [address] [place] [address], [address] [place] [address] [email or web address] Ophthalmology 07/01/22 Meliton Agudelo MD [address] [place] [address], [address] [place] [address] Insurance Assigned Provider 09/27/23 Larry Anderson MD [address] [place] [address] [place] [address] Otolaryngology 11/10/23 documented as of this encounter Additional Source Comments The information contained in this document represents components of the legal health record. It is not the complete legal health record.[facility]
--- OUTSIDE RECORDS SUMMARY | 2025-06-13 11:00 | XMS_ITS | Encounter Summary ---
Author Organization [facility] Address [address] [facility] [address] [place] [address] Phone Care Team Providers Care Solid Tire Finisher Name Role Phone Meliton Agudelo MD Primary Care Provider [phone] Lamine Navarro MD Unavailable [phone] Iain Hicks MD Unavailable [phone] Meliton Agudelo MD Unavailable [phone] Larry Anderson MD Unavailable [phone] Encounter Details Date Type Department Care Team (Late st Contact Info) Description 04/12/2024 Procedure Pass [facility], [facility] [address] [place] [address] Social History Tobacco Use Types Packs/Day Years 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, [employer]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 file documented as of this encounter Plan of Treatment Upcoming Encounters Date Type Department Care Team (Late st Contact Info) Description 06/27/2025 8:20 AM EST Office Visit [facility] Obstetrics and Gynecology Clinic [address] [place] [address] Tiarra Ojeda MD 22 [facility], [address] [place] [address] 11/15/2025 8:30 AM EDT Office Visit [facility] Primary Care Clinic [address] [place] [address] [place] [address] Meliton Agudelo MD [address] [place] [address], [address] [place] [address] documented as of this encounter Visit Diagnoses Not on filedocumented in this encounter Additional Health Concerns Assessment Noted Time PHQ-2 Depression Total Score: 0 11/10/19 8:49 AM EDT documented as of this encounter Care Teams Solid Tire Finisher Relationship Specialty Start Date End Date Meliton Agudelo MD [address] [place] [address], [address] [place] [address] PCP - General Internal Medicine 11/05/21 Lamine Navarro MD [address] [place] [address] Gastroenterology 11/05/21 Iain Hicks MD [address] [place] [address], [address] [address] Ophthalmology 07/01/22 Meliton Agudelo MD [address] [place] [address], [address] [place] [address] Insurance Assigned Provider 09/27/23 Larry Anderson MD [address] [place] [address] [address] Otolaryngology 11/10/23 documented as of this encounter Additional Source Comments The information contained in this document represents components of the legal health record. It is not the complete legal health record.[facility]
--- OUTSIDE RECORDS SUMMARY | 2025-06-13 11:00 | XMS_ITS | Clinical Summary ---
Author Organization [facility] 299 [facility] Address [address] [place] [address] Phone Care Team Providers Care Night Patrol Inspector Name Role Phone Meliton Agudelo MD Primary Care Provider [phone] Allergies Active Allergy Reactions Criticality Noted Date Comments Azithromycin Nausea And Vomiting 04/20/2018 Erythromycin 08/26/2024 Levofloxacin 08/26/2024 Sulfamethoxazole-Trimethoprim 2024 Medications multivitamin-mi c-bfsi-SY-vit K 45 mg iron- 800 mcg-120 mcg [...] Noted Date Diagnosed Date SVT (supraventricular tachycardia) 08/26/2024 Irritable bowel syndrome without diarrhea 2024 [...] on file Sexual Orientation Not on file Last Filed Vital Signs [...] Recently Relevant to Health Maintenance Insurance MEDICARE [facility] Care Teams Night Patrol Inspector Relationship Specialty Start Date End Date Meliton Agudelo MD [address] [place] [address], [address] [place] [address] PCP - General Internal Medicine 08/26/24
--- OUTSIDE RECORDS SUMMARY | 2025-06-13 11:00 | XMS_ITS | Encounter Summary ---
Author Organization [facility] Address 399 [facility] [address] [place] [address] Phone Care Team Providers Care Head Knitting Machine Fixer Name Role Phone Som Adkins MD Primary Care Provider Meliton Agudelo MD Primary Care Provider [phone] Lamine Navarro MD Unavailable [phone] Iain Hicks MD Unavailable [phone] Meliton Augdelo MD Unavailable [phone] Larry Anderson MD Unavailable Encounter Details Date Type Department Care Team (Late st Contact Info) Description 05/20/2020 Procedure Pass [facility] [address] [place] [address] Social History Tobacco Use Types Packs/Day Years [...] Description 06/27/2025 8:20 AM EST Office Visit [facility] Obstetrics and Gynecology Clinic [address] [place] [address] Tiarra Ojeda MD 22 [facility], [address] [place] [address] 11/15/2025 8:30 AM EDT Office Visit [facility] Primary Care [address] [address] Meliton Agudelo MD [address] [place] [address], [address] [place] [address] [email or web address] documented as of this encounter Visit Diagnoses Not on filedocumented in this encounter Additional Health Concerns Infection Onset Date Last Indicated Resolved Time CoV-Risk 01/22/2021 01/22/2021 02/01/2021 1:45 AM EDT COVID-19 05/05/2023 05/05/2023 05/26/2023 1:21 AM EST documented as of this encounter Care Teams Head Knitting Machine Fixer Relationship Specialty Start Date End Date Som Adkins MD [address] [place] [address] [address] [place] [address] [email or web address] PCP - General Internal Medicine 05/26/17 11/04/21 Meliton Agudelo MD [address] [place] [address], [address] [place] [address] [email or web address] PCP - General Internal Medicine 11/05/21 Lamine Navarro MD [address] [place] [address] Gastroenterology 11/05/21 Iain Hicks MD [address] [place] [address], [address] [address] [email or web address] Ophthalmology 07/01/22 Meliton Agudelo MD [address] [place] [address], [address] [place] [address] Insurance Assigned Provider 09/27/23 Larry Anderson MD [address] [place] [address] [place] [address] Otolaryngology 11/10/23 documented as of this encounter Additional Source Comments The information contained in this document represents components of the legal health record. It is not the complete legal health record.[facility]
--- OUTSIDE RECORDS SUMMARY | 2025-06-13 11:00 | XMS_ITS | Encounter Summary ---
Author Organization [facility] Address [address] [address] Phone Care Team Providers Care Program Project Analyst Name Role Phone Som Adkins MD Primary Care Provider [phone] Meliton Agudelo MD Primary Care Provider [phone] Lamine Navarro MD Unavailable [phone] Iain Hicks MD Unavailable [phone] Mleiton Agudelo MD Unavailable [phone] Larry Anderson MD Unavailable [phone] Reason for Referral * Physical Therapy (Routine) - Closed Specialty Diagnoses / Procedures Referred By Geoff lee Referred To Contact Physical Therapy Diagnoses Encounter for rehabilitation Som Adkins MD Phone: tel: fax: [email or web address] [facility] [address] [place] [address] Phone: tel: Referral ID Status Reason Start Date Expiration Date Visits Re quested Visits Authorized [id number] Closed 11/25/2017 06/22/2018 99 99 Encounter Details Date Type Department Care Team (Latest Contact Info) Description 11/04/2017 Transcribe Orders [facility] [address] [place] [address] Som Adkins MD [address] [place] [address] [address] [place] [address] [email or web address] Encounter for rehabilitation (Primary Dx) Social History [...] Description 06/27/2025 8:20 AM EST Office Visit [facility]stetrics and Gynecology Clinic [address] [place] [address] Tiarra Ojeda MD [address] [place] [address], [address] [place] [address] [email or web address] 11/15/2025 8:30 AM EDT Office Visit [facility] Primary Care Clinic [address] [place] [address] [place] [address] Meliton Agudelo MD [address] [place] [address], [address] [place] [address] [email or web address] Scheduled Referrals Name Type Priority Associated Diagnoses Orde r Schedule Ambulatory referral to [facility] Physical Therapy Outpatient Referral Routine Encounter for rehabilitation Ordered: 11/04/2017 documented as of this encounter Visit Diagnoses Diagnosis Encounter for rehabilitation- Primary documented in this encounter Additional Health Concerns Infection Onset Date Last Indicated Resolved Time CoV-Risk 01/22/2021 01/22/2021 02/01/2021 1:45 AM EDT COVID-19 05/05/2023 05/05/2023 05/26/2023 1:21 AM EST documented as of this encounter Care Teams Program Project Analyst Relationship Specialty Start Date End Date Som Adkins MD [address] [place] [address] [address] [place] [address] [email or web address] PCP - General Internal Medicine 05/26/17 11/04/21 Meliton Agudelo MD [address] [place] [address], [address] [place] [address] PCP - General Internal Medicine 11/05/21 Lamine Navarro MD [address] [place] [address] Gastroenterology 11/05/21 Iain Hicks MD [address] [place] [address], [address] [place] [address] [email or web address] Ophthalmology 07/01/22 Meliton Agudelo MD [address] [place] [address], [address] [place] [address] [email or web address] Insurance Assigned Provider 09/27/23 Larry Anderson MD [address] [place] [address] Otolaryngology 11/10/23 documented as of this encounter Additional Source Comments The information contained in this document represents components of the legal health record. It is not the complete legal health record.[facility]
--- OUTSIDE RECORDS SUMMARY | 2025-06-13 11:00 | XMS_ITS | Encounter Summary ---
Author Organization [facility] Address [address] [address] Phone Care Team Providers Care Senior Game Designer Name Role Phone Som Adkins MD Primary Care Provider [phone] Deidra Agudelo MD Primary Care Provider [phone] Lamine Navarro MD Unavailable [phone] Iain Hicks MD Unavailable [phone] Deidra Agudelo MD Unavailable Larry Anderson MD Unavailable [phone] Encounter Details Date Type Department Care Team (Late st Contact Info) Description 04/12/2017 Ancillary Orders [facility] 30 [place] [address] Ken Bingham MD [address] [place], [place] [id number] Visit for screening mammogram Social History Tobacco [...] 06/27/2025 8:20 AM EST Office Visit [facility] Obstetrics and Gynecology Clinic [address] [place] [address] Tiarra Ojeda MD 22 [facility], [address] [place] [address] [email or web address] 11/15/2025 8:30 AM EDT Office Visit [facility] Primary Care Clinic [address] [place] [address] Deidra Agudelo MD 22 [facility], [address] [place] [address] [email or web address] documented as of this [...] lowers the sensitivity of mammography. POS - [id number] Narrative 05/26/2017 7:56 AM EST 71-year-old female [...] whichlowers the sensitivity of mammography. POS - [id number] Ken Bingham MD IMG MG EXAMS Final Result documented in this encounter Visit Diagnoses Diagnosis Visit for screening mammogram Visit for screening mammogram documented in this encounter Additional Health Concerns Infection Onset Date Last Indicated Resolved Time CoV-Risk 01/22/2021 01/22/2021 02/01/2021 1:45 AM EDT COVID-19 05/05/2023 05/05/2023 05/26/2023 1:21 AM EST documented as of this encounter Care Teams Senior Game Designer Relationship Specialty Start Date End Date JedSom MD [address] [place] [address] [address] [place] [address] [email or web address] PCP - General Internal Medicine 05/26/17 11/04/21 Deidra Agudelo MD [address] [place] [address], [address] [place] [address] [email or web address] PCP - General Internal Medicine 11/05/21 Lamine Navarro MD [address] [place] [address] Gastroenterology 11/05/21 Iain Hicks MD [address] [place] [address], [address] [place] [address] [email or web address] Ophthalmology 07/01/22 Deidra Agudelo MD [address] [place] [address], [address] [place] [address] [email or web address] Insurance Assigned Provider 09/27/23 Larry Anderson MD [address] [place] [address] [place] [address] Otolaryngology 11/10/23 documented as of this encounter Additional Source Comments The information contained in this document represents components of the legal health record. It is not the complete legal health record.[facility]
--- OUTSIDE RECORDS SUMMARY | 2025-06-13 11:00 | XMS_ITS | Encounter Summary ---
Author Organization [facility] Address [address] [address] Phone Care Team Providers Care Bit Tapper Name Role Phone Som Adkins MD Primary Care Provider [phone] Meliton Agudelo MD Primary Care Provider [phone] Lamine Navarro MD Unavailable [phone] Iain Hicks MD Unavailable [phone] Meliton Agudelo MD Unavailable [phone] Larry Anderson MD Unavailable Encounter Details Date Type Department Care Team (Late st Contact Info) Description 04/12/2017 Ancillary Orders [facility] Obstetrics and Gynecology Clinic [address] [place] [address] [place] [address] Ken Bingham MD [address] [place] [address] Social History Tobacco Use Types Packs/Day Years [...] Description 06/27/2025 8:20 AM EST Office Visit [facility] Obstetrics and Gynecology Clinic [address] [place] [address] [place] [address] Tiarra Ojeda MD 22 [facility], [address] [place] [address] [email or web address] 11/15/2025 8:30 AM EDT Office Visit [facility] Primary Care [address] [address] Meliton Agudelo MD [address] [place] [address], [address] [place] [address] [email or web address] documented as of this encounter Visit Diagnoses Not on filedocumented in this encounter Additional Health Concerns Infection Onset Date Last Indicated Resolved Time CoV-Risk 01/22/2021 01/22/2021 02/01/2021 1:45 AM EDT COVID-19 05/05/2023 05/05/2023 05/26/2023 1:21 AM EST documented as of this encounter Care Teams Bit Tapper Relationship Specialty Start Date End Date JedSom MD [address] [place] [address] [address] [place] [address] [email or web address] PCP - General Internal Medicine 05/26/17 11/04/21 Meliton Agudelo MD [address] [place] [address], [address] [place] [address] [email or web address] PCP - General Internal Medicine 11/05/21 Lamine Navarro MD [address] [place] [address] Gastroenterology 11/05/21 Iain Hicks MD [address] [place] [address], [address] [address] Ophthalmology 07/01/22 Meliton Agudelo MD [address] [place] [address], [address] [place] [address] [email or web address] Insurance Assigned Provider 09/27/23 Larry Anderson MD [address] [place] [address] [place] [address] Otolaryngology 11/10/23 documented as of this encounter Additional Source Comments The information contained in this document represents components of the legal health record. It is not the complete legal health record.[facility]
--- OUTSIDE RECORDS SUMMARY | 2025-06-13 11:00 | XMS_ITS | Encounter Summary ---
Author Organization [facility] Address 399 [facility] [address] [place] [address] Phone Care Team Providers Care Morning Babysitter Name Role Phone Som Adkins MD Primary Care Provider [phone] Meliton Agudelo MD Primary Care Provider [phone] Lamine Navarro MD Unavailable [phone] Iain Hicks MD Unavailable [phone] Meliton Agudelo MD Unavailable Larry Anderson MD Unavailable Encounter Details Date Type Department Care Team (Late st Contact Info) Description 11/04/2017 Ancillary Orders Virtual Department 30 [place] [address] Som Adkins MD 264 [facility] [address] [place] [address] [email or web address] Breast screening; Trochanteric bursitis of left [...] Description 06/27/2025 8:20 AM EST Office Visit [facility] Obstetrics and Gynecology Clinic [address] [place] [address] Tiarra Ojeda MD [address] [place] [address], [address] [place] [address] 11/15/2025 8:30 AM EDT Office Visit [facility] Primary Care Clinic [address] [place] [address] [place] [address] Meliton Agudelo MD [address] [place] [address], [address] [place] [address] [email or web address] [...] lowers the sensitivity of mammography. POS - [id number] Narrative 05/27/2018 9:14 AM EST STUDY: Bilateral [...] whichlowers the sensitivity of mammography. POS - [id number] us Som Adkins MD IMG MG EXAMS [...] osseous abnormality. POS - [id number] us Som Adkins MD IMG XR PELVIS Final Result documented in this [...] documented as of this encounter Care Teams Morning Babysitter Relationship Specialty Start Date End Date JedSom MD [address] [place] [address] [address] [place] [address] [email or web address] PCP - General Internal Medicine 05/26/17 11/04/21 Meliton Agudelo MD [address] [place] [address], [address] [place] [address] PCP - General Internal Medicine 11/05/21 Lamine Navarro MD [address] [place] [address] Gastroenterology 11/05/21 Iain Hicks MD [address] [place] [address] Ophthalmology 07/01/22 Meliton Agudelo MD [address] [place] [address], [address] [place] [address] Insurance Assigned Provider 09/27/23 Larry Anderson MD [address] [place] [address] Dr ORDOÑEZ [address] [place] [address] Otolaryngology 11/10/23 documented as of this encounter Additional Source Comments The information contained in this document represents components of the legal health record. It is not the complete legal health record.[facility]
--- OUTSIDE RECORDS SUMMARY | 2025-06-13 11:00 | XMS_ITS | Encounter Summary ---
Author Organization [facility] Address 399 [facility] [address] [place] [address] Phone Care Team Providers Care Temporary Administrative Assistant Name Role Phone Som Adkins MD Primary Care Provider Meliton Agudelo MD Primary Care Provider [phone] Lamine Navarro MD Unavailable [phone] Iain Hicks MD Unavailable [phone] Meliton Agudelo MD Unavailable Larry Anderson MD Unavailable Encounter Details Date Type Department Care Team (Late st Contact Info) Description 03/06/2020 Ancillary Orders Virtual Department 30 [place] [address] Som Adkins MD 264 [facility] [address] [place] [address] [email or web address] Breast screening Social History Tobacco Use Types [...] [facility] [address] [place] [address] Tiarra Ojeda MD [address] [facility], [address] [place] [address] 11/15/2025 8:30 AM EDT Office Visit [facility] Primary Care Clinic [address] [place] [address] Meliton Agudelo MD [address] [facility], [address] [place] [address] [email or web address] documented as of this encounter Results * [...] documented as of this encounter Care Teams Temporary Administrative Assistant Relationship Specialty Start Date End Date Som Adkins MD [address] [place] [address] 10 [address] [place] [address] [email or web address] PCP - General Internal Medicine 05/26/17 11/04/21 Meliton Agudelo MD [address] [place] [address], [address] [place] [address] [email or web address] PCP - General Internal Medicine 11/05/21 Lamine Navarro MD [address] [place] [address] Gastroenterology 11/05/21 Iain Hicks MD [address] [place] [address], [address] [place] [address] [email or web address] Ophthalmology 07/01/22 Meliton Agudelo MD [address] [place] [address], [address] [place] [address] [email or web address] Insurance Assigned Provider 09/27/23 Larry Anderson MD [address] [place] [address] [place] [address] Otolaryngology 11/10/23 documented as of this encounter Additional Source Comments The information contained in this document represents components of the legal health record. It is not the complete legal health record.[facility]
--- OUTSIDE RECORDS SUMMARY | 2025-06-13 11:00 | XMS_ITS | Encounter Summary ---
Author Organization [facility] Address 399 [facility] [address] [place] [address] Phone Care Team Providers Care Beverage Specialist Name Role Phone Som Adkins MD Primary Care Provider Meliton Agudelo MD Primary Care Provider [phone] Lamine Navarro MD Unavailable [phone] Iain Hicks MD Unavailable [phone] Meliton Agudelo MD Unavailable [phone] Larry Anderson MD Unavailable Encounter Details Date Type Department Care Team (Late st Contact Info) Description 03/09/2021 Procedure Pass [facility], [address] [address] Social History Tobacco Use Types Packs/Day Years [...] Description 06/27/2025 8:20 AM EST Office Visit [facility] Obstetrics and Gynecology Clinic [address] [address] Tiarra Ojeda MD 22 [facility], [address] [place] [address] 11/15/2025 8:30 AM EDT Office Visit [facility] Primary Care Clinic [address] [place] [address] Meliton Agudelo MD [address] [place] [address], [address] [place] [address] [email or web address] documented as of this encounter Visit Diagnoses Not on filedocumented in this encounter Additional Health Concerns Infection Onset Date Last Indicated Resolved Time COVID-19 05/05/2023 05/05/2023 05/26/2023 1:21 AM EST documented as of this encounter Care Teams Beverage Specialist Relationship Specialty Start Date End Date Som Adkins MD [address] [place] [address] [address] [place] [address] [email or web address] PCP - General Internal Medicine 05/26/17 11/04/21 Meliton Agudelo MD [address] [place] [address], [address] [place] [address] [email or web address] PCP - General Internal Medicine 11/05/21 Lamine Navarro MD [address] [place] [address] Gastroenterology 11/05/21 Iain Hicks MD [address] [place] [address], [address] [place] [address] Ophthalmology 07/01/22 Meliton Agudelo MD [address] [place] [address], [address] [place] [address] [email or web address] Insurance Assigned Provider 09/27/23 Larry Anderson MD [address] [place] [address] Dr [place], [place] [address] Otolaryngology 11/10/23 documented as of this encounter Additional Source Comments The information contained in this document represents components of the legal health record. It is not the complete legal health record.[facility]
== END 2025-06-13 09:37 | disposition home or self-care (01) ==
LOC: HO.HMGAL 09:36
PROVIDERS: PCP Internal Medicine; Visit Provider Registered Nurse Emergency
DX: J30.89 Other allergic rhinitis (principal)
CPT/HCPCS: 95117; 95165